=== PATIENT | male | born 1950 | race Caucasian/White ===

== ENCOUNTER 2018-11-19 10:17 | Inpatient (IN) ==
[2018-11-19] MEDS ORDERED: Isovue-370 500 ML INFUS..BTL IV ONE (10:44)
--- NOTE | 2018-11-19 11:20 | Emergency Department Note ---
Disposition Clinical Impression: Pancytopenia, Lower GI bleed, Pulmonary vascular congestion Pneumonia Qualifiers: Pneumonia type: due to unspecified organism Laterality: bilateral Lung location: unspecified part of lung Qualified Code(s): J18.9 - Pneumonia, unspecified organism Anemia Qualifiers: Anemia type: unspecified type Qualified Code(s): D64.9 - Anemia, unspecified Disposition: Admitted As Inpatient Condition: Serious General Adult HPI - General Chief complaint: ED Shortness of Breath/Dyspnea Stated complaint: JOSE E, Port coming out [place] Pt Time Seen by Provider: 11/19/18 10:27 Source: patient Limitations: no limitations - History of Present Illness Pain Scale: 6 - Related Data Home Medications Medication Instructions Recorded Confirmed Budesonide/Formoterol 160/4.5 1 puff IH BID 10/16/16 11/19/18 [Symbicort 160/4.5] Citalopram [CeleXA] 20 mg PO DAILY 10/16/16 10/27/18 Potassium Chloride [Klor-Con] 20 meq PO DAILY 10/16/16 10/27/18 Esomeprazole Magnesium [Nexium] 40 mg PO DAILY 01/31/17 11/19/18 Clopidogrel [Plavix] 75 mg PO DAILY 03/10/17 10/27/18 Nitroglycerin 0.4 mg SL AD PRN 12/29/17 10/27/18 Fluticasone/Salmeterol [Advair 1 each IH BID 03/09/18 10/27/18 500-50 Diskus] Oxycodone HCl/Acetaminophen 1 each PO Q6H PRN 07/28/18 11/19/18 [Percocet 10-325 mg Tablet] Aspirin [Lo-Dose Aspirin EC] 81 mg PO DAILY 11/19/18 11/19/18 Atorvastatin Calcium 80 mg PO BID 11/19/18 11/19/18 Previous Rx's Medication Instructions Recorded Lidocaine/Prilocaine [Emla] 1 appl TP DAILY #30 gm 08/28/18 Carvedilol 12.5 mg PO BID #60 tab 08/31/18 Allergies Allergy/AdvReac Type Severity Reaction Status Date / Time Iodinated Contrast- Oral and AdvReac Difficulty Verified 11/19/18 14:03 IV Dye Breathing [Iodinated Contrast Media - Oral and] lorazepam [From Ativan] AdvReac See Verified 11/19/18 14:03 Comments Past Medical History - Past Medical History Medical history: Reports: hypertension, other Surgical history: Reports: coronary bypass (CABG), other Psychiatric history: Reports: no psych history - Social History Smoking Status: Current every day smoker Smokeless Tobacco Status: No Alcohol use: Reports: none Drug use: Reports: none Physical Exam - General Limitations: no limitations General appearance: alert, in no apparent distress Course - Reevaluation(s) Reevaluation #1: Called the patient's room for respiratory distress. Patient tachypneic up playing and trouble breathing. Diaphoretic. Heart rate now 130s. ABG ordered. Chest x-ray ordered. Patient placed on BiPAP and is tolerating that well this time. Patient's type and screen was not drawn. We did order a unit of negative blood while waiting on the type and cross. I performed a rectal exam is Hemoccult positive. We will send to ICU. Time: 14:06 Vital Signs Temperature 98.3 F 11/19/18 10:20 Pulse Rate 117 11/19/18 10:20 Respiratory Rate 22 11/19/18 10:20 Blood Pressure 151/70 11/19/18 10:20 O2 Sat by Pulse Oximetry 100 11/19/18 10:20 Temperature 98.6 F 11/19/18 14:10 Pulse Rate 106 11/19/18 14:22 Respiratory Rate 18 11/19/18 14:22 Blood Pressure 161/85 11/19/18 14:22 O2 Sat by Pulse Oximetry 100 11/19/18 14:22 Oxygen Delivery Oxygen Delivery Bipap Medical Decision Making - Lab Data Result diagrams: 11/19/18 11:03 11/19/18 11:03 Lab Results 11/19/18 11/19/18 11/19/18 Range/Units 11:03 11:03 11:03 WBC 2.4 L (4.3-11.1) K/mcL RBC 1.51 L (4.19-5.50) M/mcL Hgb 5.8 L* (12.9-16.9) g/dL Hct 17.6 L (37.5-50.1) % MCV 116.6 H (83.0-100.0) fL MCH 38.4 H (28.0-33.3) pg MCHC 33.0 (31.6-35.5) g/dL RDW 19.5 H (11.5-14.5) % Plt Count 23 L* (140-400) K/mcL MPV TNP Seg Neutrophils % 84.0 % Lymphocytes % 14.0 % Monocytes % 2.0 % Neutrophils # 2.0 (1.6-8.9) K/mcL Lymphocytes # 0.3 L (0.6-4.6) K/mcL Monocytes # 0.1 (0.0-1.3) K/mcL Platelet Estimate Marked Decrease L (Normal) Polychromasia 1+ A (Not Present) Poikilocytosis 1+ A (Not Present) Anisocytosis 2+ A (Not Present) Microcytosis Present A (Not Present) Sodium 138 (136-145) mEq/L Potassium 4.0 (3.5-5.1) mEq/L Chloride 105 (98-107) mEq/L Carbon Dioxide 24 (23-29) mEq/L BUN 38 H (8-23) mg/dL Creatinine 1.72 H (0.70-1.30) mg/dL Est GFR ( Amer) 48 L (> 60) Est GFR (Non-Af Amer) 40 L (> 60) BUN/Creatinine Ratio 22 (6-26) Glucose 133 H (70-105) mg/dL Calculated Osmolality 297 (280-300) Lactic Acid 1.3 (0.5-2.2) mmol/L Calcium 8.2 L (8.6-10.3) mg/dL Total Bilirubin 0.4 (0.3-1.0) mg/dL AST 13 (13-39) Units/L ALT 9 (7-52) Units/L Alkaline Phosphatase 103 (34-104) Units/L Serum Total Protein 6.0 L (6.4-8.9) g/dL Albumin 2.6 L (3.5-5.7) g/dL Globulin 3.4 (2.4-3.5) g/dL Albumin/Globulin Ratio 0.8 L (1.1-2.2) Blood Type Antibody Screen Crossmatch 11/19/18 Range/Units 13:10 WBC (4.3-11.1) K/mcL RBC (4.19-5.50) M/mcL Hgb (12.9-16.9) g/dL Hct (37.5-50.1) % MCV (83.0-100.0) fL MCH (28.0-33.3) pg MCHC (31.6-35.5) g/dL RDW (11.5-14.5) % Plt Count (140-400) K/mcL MPV Seg Neutrophils % % Lymphocytes % % Monocytes % % Neutrophils # (1.6-8.9) K/mcL Lymphocytes # (0.6-4.6) K/mcL Monocytes # (0.0-1.3) K/mcL Platelet Estimate (Normal) Polychromasia (Not Present) Poikilocytosis (Not Present) Anisocytosis (Not Present) Microcytosis (Not Present) Sodium (136-145) mEq/L Potassium (3.5-5.1) mEq/L Chloride (98-107) mEq/L Carbon Dioxide (23-29) mEq/L BUN (8-23) mg/dL Creatinine (0.70-1.30) mg/dL Est GFR ( Amer) (> 60) Est GFR (Non-Af Amer) (> 60) BUN/Creatinine Ratio (6-26) Glucose (70-105) mg/dL Calculated Osmolality (280-300) Lactic Acid (0.5-2.2) mmol/L Calcium (8.6-10.3) mg/dL Total Bilirubin (0.3-1.0) mg/dL AST (13-39) Units/L ALT (7-52) Units/L Alkaline Phosphatase (34-104) Units/L Serum Total Protein (6.4-8.9) g/dL Albumin (3.5-5.7) g/dL Globulin (2.4-3.5) g/dL Albumin/Globulin Ratio (1.1-2.2) Blood Type B POSITIVE Antibody Screen NEGATIVE Crossmatch See Detail Critical Care Time Critical Care Time: Yes Total Critical Care Time: 40 Attestation: Critical care performed: Time is exclusive of separately billable procedures. Time includes: direct patient care, patient reassessment, coordination of patient care, interpretation of data (laboratory data, radiology data, and respiratory data), review of patient's medical records, medical consultation and documentation of patient car e. Procedures included in critical care time: Procedures excluded from critical care time: Attestation Statement - Attestation Attestation: For this encounter, I have reviewed the MEDIA PLANNER / BUYER or PA documentation, treatment plan, and medical decision making; and I have had face to face time with this patient. Patient to the ED with shortness of breath. Onset several days ago. States he was seen at [facility] and and upper respiratory infection. He states he is worse. He also states his port is coming out of the right side of his chest. Patient is currently undergoing treatment for bone cancer. On exam is awake and alert. Lung sounds diminished but clear. He can visualize pulse 70% of the s urface of the port protruding from the right side of his chest. No active bleeding. Plan. Imaging and PE workup. Patient to ICU. Tolerating BiPAP. Heart rate now 110. Blood transfusing. Ot evaluated by Dr Ortiz. Chest CT 11/19/18 11:13 IMPRESSION: Multifocal ground-glass and tree-in-bud nodules throughout both lungs, right greater than left suggesting an atypical pneumonia. Small to moderate right and small left layering pleural effusions. Mild centrilobular emphysema and chronic scarring and bronchiectasis in the lung bases. D/ / 11/19/2018 12:19:38 Sloan Painter MD / [facility] Interpreting Provider: Sloan Painter MD Pulmonary Perfusion Imaging 11/19/18 11:13 IMPRESSION: Low probability for pulmonary embolism. D/ / Kalpesh Franz MD / Kalpesh Franz MD Interpreting Provider: Kalpesh Franz MD Chest X-Ray 11/19/18 13:50 IMPRESSION: 1. Increasing bilateral interstitial lung infiltrates, likely related to a combination of pneumonia and pulmonary vascular congestion when reviewing the previous CT. 2. Bilateral pleural effusions, right side greater than left, unchanged. D/ / 11/19/2018 14:15:24 Noel Helm MD / [facility] Interpreting Provider: Noel Helm MD
[2018-11-19 11:21] LABS: Hematocrit 17.6 % (37.5-50.1); Mean Corpuscular Hemoglobin 38.4 pg (28.0-33.3); Mean Corpuscular Volume 116.6 fL (83.0-100.0); Monocytes # 0.1 K/mcL (0.0-1.3); Red Blood Count 1.51 M/mcL (4.19-5.50); Red Cell Distribution Width 19.5 % (11.5-14.5)
[2018-11-19 11:44] LABS: Albumin 2.6 g/dL (3.5-5.7); Albumin/Globulin Ratio 0.8 (1.1-2.2); Bilirubin,Total 0.4 mg/dL (0.3-1.0); Calcium 8.2 mg/dL (8.6-10.3); Globulin 3.4 g/dL (2.4-3.5)
[2018-11-19 11:48] LABS: Hemoglobin 5.8 g/dL (12.9-16.9); Platelet Count 23 K/mcL (140-400)
[2018-11-19] MEDS ORDERED: 0.9 % Sodium Chloride 500 ML IVC ONE (11:49)
[2018-11-19 11:50] LABS: Lymphocytes # 0.3 K/mcL (0.6-4.6)
[2018-11-19 11:51] LABS: Anisocytosis 2+ (Not Present); Platelet Estimate Marked Decrease (Normal); Polychromasia 1+ (Not Present)
[2018-11-19 11:52] LABS: Microcytosis Present (Not Present); Poikilocytosis 1+ (Not Present)
--- NOTE | 2018-11-19 12:55 | Emergency Department Note ---
Disposition Clinical Impression: Pancytopenia, Lower GI bleed, Pulmonary vascular congestion Pneumonia Qualifiers: Pneumonia type: due to unspecified organism Laterality: bilateral Lung location: unspecified part of lung Qualified Code(s): J18.9 - Pneumonia, unspecified organism Anemia Qualifiers: Anemia type: unspecified type Qualified Code(s): D64.9 - Anemia, unspecified Disposition: Admitted As Inpatient Condition: Serious General Adult HPI - General Chief complaint: ED Shortness of Breath/Dyspnea Stated complaint: JOSE E, Port coming out [place] Pt Time Seen by Provider: 11/19/18 10:27 Source: patient Limitations: no limitations Nursing Notes Reviewed: Yes Vital Signs Reviewed: Yes - History of Present Illness HPI Narrative: 68 year old male with bone cancer currently on Chemo therapy presents with shortness of breath and port access came out. Pt stated he always has shortness of breath. He coughed some blood out three times yesterday. No chills and fever. Pt noticed port access in right chest came out 4 days ago. Pt covered it with clean dressing. Pt follows up with Oncologist Dr. Eaton. His port was inserted by IR two months ago. Onset (ago): day(s) (4) Location: other (lungs) Pain Scale: 6 - Related Data Home Medications Medication Instructions Recorded Confirmed Budesonide/Formoterol 160/4.5 1 puff IH BID 10/16/16 11/19/18 [Symbicort 160/4.5] Potassium Chloride [Klor-Con] 20 meq PO DAILY 10/16/16 11/19/18 Esomeprazole Magnesium [Nexium] 40 mg PO DAILY 01/31/17 11/19/18 Clopidogrel [Plavix] 75 mg PO DAILY 03/10/17 11/19/18 Nitroglycerin 0.4 mg SL Q5M PRN 12/29/17 11/19/18 Oxycodone HCl/Acetaminophen 1 each PO Q6H PRN 07/28/18 11/19/18 [Percocet 10-325 mg Tablet] Amoxicillin 875 mg PO BID 11/19/18 11/19/18 Aspirin [Lo-Dose Aspirin EC] 81 mg PO DAILY 11/19/18 11/19/18 Atorvastatin Calcium 80 mg PO BID 11/19/18 11/19/18 Diclofenac Sodium 4 gm TP QID PRN 11/19/18 11/19/18 Hydromorphone (Pf) [Hydromorphone 9 mg IT AD 11/19/18 11/19/18 Intrathecal Pump] Ipratropium/Albuterol Sulfate 2 spray IH DAILY 11/19/18 11/19/18 [Combivent Respimat Inhal [place]] NALOXONE 4 MG Nasal [place] [Narcan] 1 spray NS AD 11/19/18 11/19/18 Previous Rx's Medication Instructions Recorded Lidocaine/Prilocaine [Emla] 1 appl TP DAILY #30 gm 08/28/18 Allergies Allergy/AdvReac Type Severity Reaction Status Date / Time Iodinated Contrast- Oral and AdvReac Difficulty Verified 11/19/18 14:03 IV Dye Breathing [Iodinated Contrast Media - Oral and] lorazepam [From Ativan] AdvReac See Verified 11/19/18 14:03 Comments Constitutional: Denies: fever, chills Eyes: Denies: eye pain ENT ED: Denies: ear pain Cardiovascular: Denies: chest pain Respiratory: Reports: cough, hemoptysis Gastrointestinal: Denies: abdominal pain Genitourinary: Denies: urgency Musculoskeletal: Denies: back pain Integumentary: Denies: rash Neurological: Denies: headache Psychiatric: Denies: anxiety Endocrine: Denies: fatigue Hematological/Lymphatic: Denies: easy bleeding Allergic/Immunologic: Denies: facial swelling Past Medical History - Past Medical History Medical history: Reports: hypertension, other Surgical history: Reports: coronary bypass (CABG), other Psychiatric history: Reports: no psych history - Social History Smoking Status: Current every day smoker Smokeless Tobacco Status: No Alcohol use: Reports: none Drug use: Reports: none Physical Exam - General Limitations: no limitations General appearance: alert, in no apparent distress - Head Head exam: atraumatic - Expanded Head Exam Head exam physicial: Present: laceration - ENT ENT exam: normal exam - Neck Neck exam: Present: normal inspection - Chest Chest inspection: Present: normal inspection - Respiratory Respiratory exam: Present: normal lung sounds bilaterally. Absent: respiratory distress, wheezes - Cardiovascular Cardiovascular exam: Present: tachycardia - Abdominal Exam Abdominal exam: Present: soft, Non-Tender - Extremities Exam Extremities exam: Present: normal inspection, full ROM. Absent: tenderness - Back Exam Back exam: Present: normal inspection, full ROM. Absent: tenderness - Neurological Exam Neurological exam: Present: alert, oriented X3 - Psychiatric Psychiatric exam: Present: normal affect - Skin Skin exam: Present: warm. Absent: intact (port access on right chest half way came out, surrounding skin mild erythema, no swelling, no tender) Course Vital Signs Temperature 98.3 F 11/19/18 10:20 Pulse Rate 117 11/19/18 10:20 Respiratory Rate 22 11/19/18 10:20 Blood Pressure 151/70 11/19/18 10:20 O2 Sat by Pulse Oximetry 100 11/19/18 10:20 Temperature 98.5 F 11/19/18 15:24 Pulse Rate 90 11/19/18 15:24 Respiratory Rate 22 11/19/18 15:24 Blood Pressure 169/94 11/19/18 15:24 O2 Sat by Pulse Oximetry 100 11/19/18 15:24 Oxygen Delivery Oxygen Delivery Bipap Medical Decision Making - MDM Narrative Medical decision making narrative: 68 year old male with history of bone cancer presents with shortness of breath, hemoptyic, and port access came out. physical exam: O2 sat 100 in room air, alert and oriented, bilateral lungs are clear, no breath distress, no wheezing, tachycardia with pulse 117, port access came out, surrounding skin mild erythema, no swelling, no tender to palpation. Labs: hemoglobin 5.8. Chest CT indicated bilateral atypical pneumonia, QV: low possibility of PE. Rectal exam positive [place] test. 2 unites blood ordered in ER. Spoke with Hospitalist, pt is accepted. 1:40 pm, nurses reported pt suddenly has altered mental status and worsening tachycardia with heart rate 130. Bi-pap applied, pt seems better. Alert and oriented. ICU doctor contacted. Dr. Landers saw the patient in ED. Pt will be accepted in ICU - Lab Data Lab results reviewed: Yes I reviewed the patient's lab results. Result diagrams: 11/19/18 11:03 11/19/18 11:03 Lab Results 11/19/18 11/19/18 11/19/18 Range/Units 11:03 11:03 11:03 WBC 2.4 L (4.3-11.1) K/mcL RBC 1.51 L (4.19-5.50) M/mcL Hgb 5.8 L* (12.9-16.9) g/dL Hct 17.6 L (37.5-50.1) % MCV 116.6 H (83.0-100.0) fL MCH 38.4 H (28.0-33.3) pg MCHC 33.0 (31.6-35.5) g/dL RDW 19.5 H (11.5-14.5) % Plt Count 23 L* (140-400) K/mcL MPV TNP Seg Neutrophils % 84.0 % Lymphocytes % 14.0 % Monocytes % 2.0 % Neutrophils # 2.0 (1.6-8.9) K/mcL Lymphocytes # 0.3 L (0.6-4.6) K/mcL Monocytes # 0.1 (0.0-1.3) K/mcL Platelet Estimate Marked Decrease L (Normal) Polychromasia 1+ A (Not Present) Poikilocytosis 1+ A (Not Present) Anisocytosis 2+ A (Not Present) Microcytosis Present A (Not Present) Sodium 138 (136-145) mEq/L Potassium 4.0 (3.5-5.1) mEq/L Chloride 105 (98-107) mEq/L Carbon Dioxide 24 (23-29) mEq/L BUN 38 H (8-23) mg/dL Creatinine 1.72 H (0.70-1.30) mg/dL Est GFR ( Amer) 48 L (> 60) Est GFR (Non-Af Amer) 40 L (> 60) BUN/Creatinine Ratio 22 (6-26) Glucose 133 H (70-105) mg/dL Calculated Osmolality 297 (280-300) Lactic Acid 1.3 (0.5-2.2) mmol/L Calcium 8.2 L (8.6-10.3) mg/dL Total Bilirubin 0.4 (0.3-1.0) mg/dL AST 13 (13-39) Units/L ALT 9 (7-52) Units/L Alkaline Phosphatase 103 (34-104) Units/L Serum Total Protein 6.0 L (6.4-8.9) g/dL Albumin 2.6 L (3.5-5.7) g/dL Globulin 3.4 (2.4-3.5) g/dL Albumin/Globulin Ratio 0.8 L (1.1-2.2) Blood Type Antibody Screen Crossmatch 11/19/18 Range/Units 13:10 WBC (4.3-11.1) K/mcL RBC (4.19-5.50) M/mcL Hgb (12.9-16.9) g/dL Hct (37.5-50.1) % MCV (83.0-100.0) fL MCH (28.0-33.3) pg MCHC (31.6-35.5) g/dL RDW (11.5-14.5) % Plt Count (140-400) K/mcL MPV Seg Neutrophils % % Lymphocytes % % Monocytes % % Neutrophils # (1.6-8.9) K/mcL Lymphocytes # (0.6-4.6) K/mcL Monocytes # (0.0-1.3) K/mcL Platelet Estimate (Normal) Polychromasia (Not Present) Poikilocytosis (Not Present) Anisocytosis (Not Present) Microcytosis (Not Present) Sodium (136-145) mEq/L Potassium (3.5-5.1) mEq/L Chloride (98-107) mEq/L Carbon Dioxide (23-29) mEq/L BUN (8-23) mg/dL Creatinine (0.70-1.30) mg/dL Est GFR ( Amer) (> 60) Est GFR (Non-Af Amer) (> 60) BUN/Creatinine Ratio (6-26) Glucose (70-105) mg/dL Calculated Osmolality (280-300) Lactic Acid (0.5-2.2) mmol/L Calcium (8.6-10.3) mg/dL Total Bilirubin (0.3-1.0) mg/dL AST (13-39) Units/L ALT (7-52) Units/L Alkaline Phosphatase (34-104) Units/L Serum Total Protein (6.4-8.9) g/dL Albumin (3.5-5.7) g/dL Globulin (2.4-3.5) g/dL Albumin/Globulin Ratio (1.1-2.2) Blood Type B POSITIVE Antibody Screen NEGATIVE Crossmatch See Detail - Radiology Data Radiology results reviewed: Yes I reviewed the patient's radiology results. FINDINGS: PERFUSION: There is heterogeneous distribution of radiotracer, diminished in the right lung compared to the left. The perfusion is overall improved compared to the ventilation. No unmatched segmental or subsegmental perfusion defects. VENTILATION: Heterogeneous distribution of radiotracer, similar distribution to the perfusion images. CHEST RADIOGRAPH: Scattered ground-glass opacities throughout the lungs, greater in the right lung. Small right pleural effusion. NM/NM pul vent and perfuse IMPRESSION: Low probability for pulmonary embolism. D/ / Kalpesh Franz MD / Kalpesh Franz MD Interpreting Provider: Kalpesh Franz MD ORY: ORDERING SYSTEM PROVIDED HISTORY: jose e/cancer Initial encounter. Acute difficulty in breathing, cough for 6 days. FINDINGS: Mediastinum: There is a right chest wall Port-A-Cath line with its tip in the SVC. There is a right chest wall Port-A-Cath line with its tip at the cavoatrial junction. Coronary artery calcifications and coronary arterial stents are noted. Evidence of prior CABG. There is inferior pericardial calcifications likely from prior surgery. There are stable borderline to mildly enlarged mediastinal lymph nodes noted. These are unchanged since 2016, and likely represent chronic reactive lymph nodes from prior CABG. For example, there is a 12 mm short axis AP window lymph node and a 12 mm short axis right paratracheal lymph node that are stable. There are also calcified mediastinal and right hilar granulomata noted. No definite evidence of pathologically enlarged lymph nodes. Thyroid is grossly unremarkable within the limits of CT. The central airways are clear. The esophagus is grossly unremarkable. Lungs/pleura: There is a small to moderate size layering right pleural effusion. There is a small left pleural effusion. There is mild centrilobular emphysema in the lungs. There is multifocal ground-glass and tree-in-bud nodules throughout the lungs predominantly in the right upper lobe, right middle lobe and right lower lobe but also to a lesser extent in the left upper and lower lobes suggesting an atypical pneumonia. There is mild bronchiectasis and scarring in the right middle lobe that is stable. No evidence of pneumothorax. Upper Abdomen: No evidence of focal adrenal nodule. Limited images of the upper abdomen demonstrate no acute abnormality. Soft Tissues/Bones: Age related degenerative changes of the visualized osseous structures without focal destructive lesion. Spinal stimulator leads are noted in the thoracic spine. CT/CT chest wo con IMPRESSION: Multifocal ground-glass and tree-in-bud nodules throughout both lungs, right greater than left suggesting an atypical pneumonia. Small to moderate right and small left layering pleural effusions. Mild centrilobular emphysema and chronic scarring and bronchiectasis in the lung bases. D/ / 11/19/2018 12:19:38 Sloan Painter MD / [facility] Interpreting Provider: Sloan Painter MD
[2018-11-19] MEDS ORDERED: Levofloxacin 750 MG/150 ML 750 MG/150 ML BAG IVPB ONE (13:13)
[2018-11-19] MEDS ORDERED: Piperacillin/Tazobactam 3.375 GM in 0.9 % Sodium Chloride Mini Bag 100 ML IVPB ONE (13:13)
[2018-11-19] MEDS ORDERED: Furosemide 40 MG/4 ML VIAL IVP ONE (13:51)
[2018-11-19] MEDS ORDERED: 0.9 % Sodium Chloride 500 ML ONE (14:01)
[2018-11-19 14:10] LABS: ABG Base Excess -7 mEq/L (-2 to 3); ABG HCO3 18 mEq/L (21-27); ABG Oxygen Saturation 97 % (95-98); ABG PCO2 33 mmHg (35-45); ABG PH 7.35 pH Units (7.32-7.45); ABG PO2 95 mmHg (85-104); ABG TCO2 19 mEq/L (20-26); Blood Gas PEEP 6 cm H2O; Blood Gas Pressure Support 12 cm H2O
--- NOTE | 2018-11-19 14:29 | Pulmonology History & Physical ---
Addendum entered and electronically signed by Jairo Lunsford DO 11/21/18 18:59: Addendum entered and electronically signed by Nelly Landers MD 11/20/18 19:12: - Attending Attestation After Careful chart review family telling the history it looks like patient is on Oxygen at home so the current presentation Acute Hypoxic respiratory failure. Original Note: <Jairo Lunsford - Last Filed: 11/19/18 21:25> Date of Encounter: 11/19/18 Time of Encounter: 14:29 Assessment and Plan (1) HAP (hospital-acquired pneumonia) Current visit: Yes Status: Acute Patient presented with shortness of breath, thrombocytopenia, and cough. CT chest revealed bilateral atypical pneumonia and small bilateral pleural effusions. ABG revealed normal pH, PCO2 33, PO2 95, and O2 sat 97. Patient was placed on BiPAP secondary to respiratory distress. V/Q scan was low probability for pulmonary embolism. Patient was started on empiric Vancomycin, Zosyn, and Levaquin. Urine Legionella and strep pneumo antigens pending MRSA nasal swab pending Respiratory infection panel pending De-escalate antibiotics based on clinical course. (2) Anemia Current visit: Yes Status: Acute Labs revealed pancytopenia, hemoglobin of 5.8, platelet count 23, patient was Hemoccult positive in the ED 2 units PRBCs were ordered. [address]. Patient is hemodynamically stable Continue PPI IV Hematology oncology consulted Qualifiers: Anemia type: unspecified type Qualified Code(s): D64.9 - Anemia, unspecified (3) MAEVE (acute kidney injury) Current visit: Yes Status: Acute Patient with history of lupus, membranous glomerulonephritis with nephrosis, Lasix use, and MICA inhibitor use Renal ultrasound ordered. Continue gentle hydration. Renally dose antibiotics Avoid nephrotoxins (4) MDS (myelodysplastic syndrome) Current visit: Yes Status: Chronic Patient with pancytopenia, hematology oncology consulted for further evaluation. Appreciate recommendations. (5) Port-A-Cath in place Current visit: Yes Status: Acute Patient with the right upper chest Port-A-Cath dehiscence Interventional radiology consulted for catheter removal and new catheter placement (6) Lupus Current visit: No Status: Chronic Patient follows with rheumatology as outpatient. Qualifiers: Systemic lupus erythematosus type: unspecified Systemic lupus erythematosus organ involvement: unspecified Qualified Code(s): M32.9 - Systemic lupus erythematosus, unspecified (7) Opiate dependence Current visit: Yes Status: Chronic Patient has hydromorphone intrathecal pump in place, outpatient management per pain management. Continue Home meds Qualifiers: Substance use status: uncomplicated Qualified Code(s): F11.20 - Opioid dependence, uncomplicated (8) HTN (hypertension) Current visit: Yes Status: Acute Hold home MICA inhibitor due to MAEVE Continue hydralazine IV to 6 hours as needed for SBP greater than 160 Qualifiers: Hypertension type: essential hypertension Qualified Code(s): I10 - Essential (primary) hypertension (9) CAD (coronary artery disease) Current visit: No Status: Chronic Continue home meds. Qualifiers: Coronary Disease-Associated Artery/Lesion type: unspecified vessel or lesion type [place] vs. transplanted heart: [place] heart Associated angina: without angina Qualified Code(s): I25.10 - Atherosclerotic heart disease of [place] coronary artery without angina pectoris (10) PAD (peripheral artery disease) Current visit: No Status: Chronic Continue home meds. (11) Seizures Current visit: No Status: Chronic Reported history of seizures. Continue monitoring. (12) Tobacco abuse Current visit: Yes Status: Chronic Tobacco cessation. (13) DVT prophylaxis Current visit: Yes Status: Acute SCDs. Avoid Heparin due to anemia and thrombocytopenia History of Present Illness Chief complaint: Short of breath HPI: Mr. Oreilly is a 68 year old male with a past medical history of myelodysplastic syndrome, Lupus, CAD, hypertension, intrathecal pain pump, seizure disorder, and tobacco dependence who presented complaining of shortness of breath and fatigue. Patient is currently undergoing treatment for "bone cancer". In the ED, CT chest revealed bilateral atypical pneumonia and small bilateral pleural effusions. ABG revealed normal pH, PCO2 33, PO2 95, and O2 sat 97. Patient was placed on BiPAP secondary to respiratory distress. Labs revealed pancytopenia, hemoglobin of 5.8, platelet count 23, and acute kidney injury. Patient was Hemoccult positive in the ED and 2 units PRBCs were ordered. His Port-A-Cath in his right chest is also starting to dehiscence out of his chest wall. V/Q scan was low probability for pulmonary embolism. Patient was moved to ICU for further management Past Med Surg Social Fam HX - Past Medical History Medical history: hypertension, other Additional medical history: Open heart, stents x 12 Psychiatric history: no psych history - Past Surgical History Surgical History: coronary bypass (CABG), other Additional surgical history: implanted port - Social History Smoking Status: Current every day smoker Smokeless Tobacco Status: No Alcohol use: none Drug use: none - Family History Mother Hx Family Endocrine Disorder: Yes (Diabetes) Father Living Status: Hx Family Cardiac Disorders: Yes (Hypertension) Hx Family Respiratory Disorders: Yes (Asthma) Brother Living Status: Cause of : Cancer Hx Family Cancer: Yes Medications and Allergies Budesonide/Formoterol 160/4.5 [Symbicort 160/4.5] 1 puff IH BID 10/16/16 [History] Potassium Chloride [Klor-Con] 20 meq PO DAILY 10/16/16 [History] Esomeprazole Magnesium [Nexium] 40 mg PO DAILY 01/31/17 [History] Clopidogrel [Plavix] 75 mg PO DAILY 03/10/17 [History] Nitroglycerin 0.4 mg SL Q5M PRN 12/29/17 [History] Oxycodone HCl/Acetaminophen [Percocet 10-325 mg Tablet] 1 each PO Q6H PRN 07/28/18 [History] Lidocaine/Prilocaine [[place]mla] 1 appl TP DAILY #30 gm 08/28/18 [Rx] Amoxicillin 875 mg PO BID 11/19/18 [History] Aspirin [Lo-Dose Aspirin EC] 81 mg PO DAILY 11/19/18 [History] Atorvastatin Calcium 80 mg PO BID 11/19/18 [History] Diclofenac Sodium 4 gm TP QID PRN 11/19/18 [History] Hydromorphone (Pf) [Hydromorphone Intrathecal Pump] 9 mg IT AD 11/19/18 [History] Ipratropium/Albuterol Sulfate [Combivent Respimat Inhal [place]] 2 spray IH DAILY 11/19/18 [History] NALOXONE 4 MG Nasal [place] [Narcan] 1 spray NS AD 11/19/18 [History] Allergy/AdvReac Type Severity Reaction Status Date / Time Iodinated Contrast- Oral and AdvReac Difficulty Verified 11/19/18 14:03 IV Dye Breathing [Iodinated Contrast Media - Oral and] lorazepam [From Ativan] AdvReac See Verified 11/19/18 14:03 Comments All Systems: The remainder of the systems were reviewed and are negative - Constitutional Constitutional: fatigue, weakness, no chills, no fever(s) - EENT Nose, mouth and throat: no epistaxis, no neck pain, no sore throat - Cardiovascular Cardiovascular: dyspnea, palpitations, no lightheadedness - Respiratory Respiratory: cough, dyspnea, hemoptysis, wheezing - Gastrointestinal Gastrointestinal: no abdominal pain, no nausea, no vomiting - Genitourinary Genitourinary: no dysuria, no urinary frequency, no urinary urgency - Musculoskeletal Musculoskeletal: no numbness, no tingling - Integumentary Integumentary: erythema, other (Port a Cath dehiscence), no rash - Neurological Neurological: weakness, no confusion, no dizziness, no headache(s), no numbness, no tingling - Psychiatric Psychiatric: no anxiety, no depression - Endocrine Endocrine: fatigue, no polydipsia, no polyphagia - Hematologic/Lymphatic Hematologic/Lymphatic: no easy bleeding, no easy bruising Physical Examination Vital Signs: Vital Signs, Last 4 Hours Temp Pulse Resp BP Pulse Ox 11/19/18 14:22 106 18 161/85 100 11/19/18 14:10 98.6 F 113 22 158/80 100 11/19/18 13:59 22 100 11/19/18 13:42 123 26 154/69 95 11/19/18 10:30 98.3 F 117 22 151/70 100 General appearance: no acute distress (Wearing BiPAP) Eyes: nonicteric ENT: oropharynx dry Neck: supple Effort: mildly labored (Wearing BiPAP) Inspection: normal Auscultation: bilateral: wheezes Percussion: bilateral: not dull Tactile fremitus: bilateral: normal Cardiovascular: regular rate and rhythm Gastrointestinal: normoactive bowel sounds, soft (Tachycardic), non-distended Integumentary: other (Port-A-Cath dehiscence right upper chest) Extremities: no cyanosis, no edema, no clubbing Musculoskeletal: no deformities, ROM normal normal mental status, non-focal exam mood appropriate, affect normal Results - Laboratory Findings CBC and BMP: 11/19/18 11:03 11/19/18 11:03 ABG ABG pH 7.35 pH Units (7.32-7.45) 11/19/18 14:06 ABG pCO2 33 mmHg (35-45) L 11/19/18 14:06 ABG pO2 95 mmHg (85-104) 11/19/18 14:06 ABG O2 Saturation 97 % (95-98) 11/19/18 14:06 Abnormal lab findings: Abnormal lab results WBC 2.4 K/mcL (4.3-11.1) L 11/19/18 11:03 RBC 1.51 M/mcL (4.19-5.50) L 11/19/18 11:03 Hgb 5.8 g/dL (12.9-16.9) L* 11/19/18 11:03 Hct 17.6 % (37.5-50.1) L 11/19/18 11:03 MCV 116.6 fL (83.0-100.0) H 11/19/18 11:03 MCH 38.4 pg (28.0-33.3) H 11/19/18 11:03 RDW 19.5 % (11.5-14.5) H 11/19/18 11:03 Plt Count 23 K/mcL (140-400) L* 11/19/18 11:03 Lymphocytes # 0.3 K/mcL (0.6-4.6) L 11/19/18 11:03 Platelet Estimate Marked Decrease (Normal) L 11/19/18 11:03 Polychromasia 1+ (Not Present) A 11/19/18 11:03 Poikilocytosis 1+ (Not Present) A 11/19/18 11:03 Anisocytosis 2+ (Not Present) A 11/19/18 11:03 Microcytosis Present (Not Present) A 11/19/18 11:03 ABG pCO2 33 mmHg (35-45) L 11/19/18 14:06 ABG HCO3 18 mEq/L (21-27) L 11/19/18 14:06 ABG Total CO2 19 mEq/L (20-26) L 11/19/18 14:06 ABG Base Excess -7 mEq/L (-2 to 3) L 11/19/18 14:06 BUN 38 mg/dL (8-23) H 11/19/18 11:03 Creatinine 1.72 mg/dL (0.70-1.30) H 11/19/18 11:03 Est GFR ( Amer) 48 (> 60) L 11/19/18 11:03 Est GFR (Non-Af Amer) 40 (> 60) L 11/19/18 11:03 Glucose 133 mg/dL (70-105) H 11/19/18 11:03 Calcium 8.2 mg/dL (8.6-10.3) L 11/19/18 11:03 Serum Total Protein 6.0 g/dL (6.4-8.9) L 11/19/18 11:03 Albumin 2.6 g/dL (3.5-5.7) L 11/19/18 11:03 Albumin/Globulin Ratio 0.8 (1.1-2.2) L 11/19/18 11:03 - Diagnostic Findings Chest x-ray: report reviewed, image reviewed Additional studies: ITS Impressions Chest CT 11/19/18 11:13 IMPRESSION: Multifocal ground-glass and tree-in-bud nodules throughout both lungs, right greater than left suggesting an atypical pneumonia. Small to moderate right and small left layering pleural effusions. Mild centrilobular emphysema and chronic scarring and bronchiectasis in the lung bases. D/ / 11/19/2018 12:19:38 Sloan Painter MD / bcaer Interpreting Provider: Sloan Painter MD Pulmonary Perfusion Imaging 11/19/18 11:13 IMPRESSION: Low probability for pulmonary embolism. D/ / Kalpesh Franz MD / Kalpesh Franz MD Interpreting Provider: Kalpesh Franz MD Chest X-Ray 11/19/18 13:50 IMPRESSION: 1. Increasing bilateral interstitial lung infiltrates, likely related to a combination of pneumonia and pulmonary vascular congestion when reviewing the previous CT. 2. Bilateral pleural effusions, right side greater than left, unchanged. D/ / 11/19/2018 14:15:24 Noel Helm MD / anahi Interpreting Provider: Noel Helm MD Retroperitoneum Ultrasound 11/19/18 15:26 IMPRESSION: 1. No evidence of hydronephrosis. 2. Echogenic renal cortex may represent medical renal disease. D/ / Alejandro Jones MD / Alejandro Jones MD Interpreting Provider: Alejandro Jones MD <Nelly Landers S - Last Filed: 11/20/18 00:05> Date of Encounter: 11/20/18 History of Present Illness HPI: Mr. Oreilly is a 68 year old male All Systems: The remainder of the systems were reviewed and are negative Physical Examination Vital Signs: Vital Signs, Last 4 Hours Temp Pulse Resp BP Pulse Ox 11/19/18 23:00 97.6 F 97 22 165/95 95 11/19/18 22:00 102 22 166/82 94 11/19/18 21:48 20 167/94 96 11/19/18 21:00 107 22 171/122 96 11/19/18 20:46 26 170/89 95 11/19/18 20:13 98.4 F 11/19/18 20:00 106 20 170/89 96 Results - Laboratory Findings CBC and BMP: 11/19/18 19:39 11/19/18 11:03 ABG ABG pH 7.35 pH Units (7.32-7.45) 11/19/18 14:06 ABG pCO2 33 mmHg (35-45) L 11/19/18 14:06 ABG pO2 95 mmHg (85-104) 11/19/18 14:06 ABG O2 Saturation 97 % (95-98) 11/19/18 14:06 PT/INR, D-dimer PT 13.4 Seconds (9.4-12.1) H 11/19/18 11:00 Abnormal lab findings: Abnormal lab results WBC 3.0 K/mcL (4.3-11.1) L 11/19/18 19:39 RBC 2.06 M/mcL (4.19-5.50) L 11/19/18 19:39 Hgb 7.2 g/dL (12.9-16.9) L 11/19/18 19:39 Hct 21.3 % (37.5-50.1) L 11/19/18 19:39 MCV 103.4 fL (83.0-100.0) H D 11/19/18 19:39 MCH 35.0 pg (28.0-33.3) H 11/19/18 19:39 Plt Count 20 K/mcL (140-400) L* 11/19/18 19:39 Lymphocytes # 0.3 K/mcL (0.6-4.6) L 11/19/18 19:39 Platelet Estimate Marked Decrease (Normal) L 11/19/18 19:39 Immature Plt Fraction 15.5 % (1.1-6.1) H 11/19/18 19:39 Polychromasia 1+ (Not Present) A 11/19/18 11:03 Poikilocytosis 1+ (Not Present) A 11/19/18 11:03 Anisocytosis 2+ (Not Present) A 11/19/18 19:39 Microcytosis Present (Not Present) A 11/19/18 11:03 PT 13.4 Seconds (9.4-12.1) H 11/19/18 11:00 ABG pCO2 33 mmHg (35-45) L 11/19/18 14:06 ABG HCO3 18 mEq/L (21-27) L 11/19/18 14:06 ABG Total CO2 19 mEq/L (20-26) L 11/19/18 14:06 ABG Base Excess -7 mEq/L (-2 to 3) L 11/19/18 14:06 BUN 38 mg/dL (8-23) H 11/19/18 11:03 Creatinine 1.72 mg/dL (0.70-1.30) H 11/19/18 11:03 Est GFR ( Amer) 48 (> 60) L 11/19/18 11:03 Est GFR (Non-Af Amer) 40 (> 60) L 11/19/18 11:03 Glucose 133 mg/dL (70-105) H 11/19/18 11:03 Calcium 8.2 mg/dL (8.6-10.3) L 11/19/18 11:03 Serum Total Protein 6.0 g/dL (6.4-8.9) L 11/19/18 11:03 Albumin 2.6 g/dL (3.5-5.7) L 11/19/18 11:03 Albumin/Globulin Ratio 0.8 (1.1-2.2) L 11/19/18 11:03 Urine Protein >=300 mg/dL (Neg-Trace) H 11/19/18 16:44 Urine Glucose (UA) 100 mg/dL (Normal) H 11/19/18 16:44 Urine Blood Small (Negative) H 11/19/18 16:44 Urine Microscopic RBC 5-15 per hpf (0-3) H 11/19/18 16:44 Urine Microscopic WBC 3-5 per hpf (0-3) H 11/19/18 16:44 Ur Squamous Epith Cells Many per lpf (None-Few) H 11/19/18 16:44 - Attending Attestation I saw and evaluated this patient and my medical decision-making was reviewed with the Resident Physician. I agree with the documented findings, disposition and treatment plan as described except to the extent set forth below. We independently had [id number] contact with the patient I spent 40 minutes of Critical Care time with this patient. It involved decision making of high complexity to assess, manipulate, and support vital organ system failure and/or to prevent further life threatening deterioration of the patient's condition. The time involved in the performance of separately repo rtable procedures was not counted toward critical care time. Patient seen and examined at bedside Labs, radiology, chart personally reviewed. Management was reviewed during multidisciplinary critical care rounds. RESEARCH RECRUITER: Patient is little bit somnolent following commands Pulm: Patient has acceptable oxygenation and ventilation, acute on chronic Hypoxic respiratory failure due to atypical pneumonia complicated by hydrostatic pulmonary edema will need bronchoscopy with BAL we will attempt tomorrow since patient is immunosuppressed. Cards: Patient Is hemodynamically stable to control blood pressure FEN-GI: Nothing by mouth for now. Renal: Acute on chronic kidney injury will do renal ultrasound monitoring serum creatinine and urine output. ID: With broad-spectrum antibiotics for atypical coverage we will attempt a bronchoscopy with BAL. Heme/Onc: Has myelodysplastic syndrome on chemotherapy now with pancytopenia. Patient chronic anemia is due to myelodysplastic syndrome and suspect any s ignificant GI bleed. Endo: Glucose Monitored Integ/MSK: Skin Care per routine ICU Nursing Protocol to prevent ulcers. Lines: All lines examined without evidence of infection : Dispo: Critically ill CODE:Full Code
[2018-11-19] MEDS ORDERED: Pantoprazole 40 MG in 0.9 % Sodium Chloride 50 ML IVPB ONE (14:44)
[2018-11-19] MEDS ORDERED: Acetaminophen 325 MG TABLET PO PRN (14:44)
[2018-11-19] MEDS ORDERED: Naloxone 0.4 MG/ML INJ IVP PRN (14:44)
[2018-11-19] MEDS ORDERED: Sennosides 8.6 MG TABLET PO PRN (14:44)
[2018-11-19] MEDS ORDERED: Ondansetron 4 MG/2 ML VIAL IVP PRN (14:44)
[2018-11-19] MEDS ORDERED: Vancomycin (wt based) 1,000 MG VIAL IVPB SCH (15:00)
[2018-11-19] MEDS: Ipratropium/Albuterol Neb 3 ML IH SCH ×2 (15:44→21:48)
[2018-11-19 16:21] LABS: Phosphorous 4.1 mg/dL (2.7-4.5)
[2018-11-19 16:25] LABS: INR 1.2; Prothrombin Time 13.4 Seconds (9.4-12.1)
[2018-11-19] MEDS: Piperacillin/Tazobactam 3.375 GM in 0.9 % Sodium Chloride Mini Bag 100 ML IVPB SCH ×2 (16:32→23:35)
[2018-11-19 17:16] LABS: Bilirubin,Urine Negative (Negative); Blood,Urine Small (Negative); Clarity,Urine Clear (Clear); Color,Urine Yellow (Yellow); Glucose,Urine (UA) 100 mg/dL (Normal); Ketones,Urine Negative (Negative); Leukocyte Esterase,Urine Negative (Negative); Nitrite,Urine Negative (Negative); Protein,Urine >=300 mg/dL (Neg-Trace); Urobilinogen,Urine Normal (Normal)
[2018-11-19 17:20] LABS: Bacteria,Urine None Seen per hpf (None-Few); Hyaline Casts,Urine None Seen per lpf (None-Few); Squamous Epithelial Cell,Urine Many per lpf (None-Few)
--- NOTE | 2018-11-19 17:32 | Oncology Inp Consult Note ---
<Darío Velázquez S - Last Filed: 11/20/18 08:59> Date of Encounter: 11/19/18 - Data of Consult Requesting Physician: Sid Tolentino Primary Care Provider: Sarah Charles CNP Medications and Allergies Budesonide/Formoterol 160/4.5 [Symbicort 160/4.5] 1 puff IH BID 10/16/16 [History] Potassium Chloride [Klor-Con] 20 meq PO DAILY 10/16/16 [History] Esomeprazole Magnesium [Nexium] 40 mg PO DAILY 01/31/17 [History] Clopidogrel [Plavix] 75 mg PO DAILY 03/10/17 [History] Nitroglycerin 0.4 mg SL Q5M PRN 12/29/17 [History] Oxycodone HCl/Acetaminophen [Percocet 10-325 mg Tablet] 1 each PO Q6H PRN 07/28/18 [History] Lidocaine/Prilocaine [Emla] 1 appl TP DAILY #30 gm 08/28/18 [Rx] Amoxicillin 875 mg PO BID 11/19/18 [History] Aspirin [Lo-Dose Aspirin EC] 81 mg PO DAILY 11/19/18 [History] Atorvastatin Calcium 80 mg PO BID 11/19/18 [History] Diclofenac Sodium 4 gm TP QID PRN 11/19/18 [History] Hydromorphone (Pf) [Hydromorphone Intrathecal Pump] 9 mg IT AD 11/19/18 [History] Ipratropium/Albuterol Sulfate [Combivent Respimat Inhal [place]] 2 spray IH DAILY 11/19/18 [History] NALOXONE 4 MG Nasal [place] [Narcan] 1 spray NS AD 11/19/18 [History] Allergy/AdvReac Type Severity Reaction Status Date / Time Iodinated Contrast- Oral and AdvReac Difficulty Verified 11/19/18 14:03 IV Dye Breathing [Iodinated Contrast Media - Oral and] lorazepam [From Ativan] AdvReac See Verified 11/19/18 14:03 Comments Consult Discharge Plan - Plan Referrals: Sarah Charles CNP [Primary Care Provider] - Inpatient Charges Provider: Dr. Nando Velázquez Consult - Inpatient: [id number] - Attending Attestation I examined this patient and my medical decision-making was reviewed with the Advanced Practice Nurse. I agree with the documented findings, disposition and treatment plan as described except to the extent set forth below. 1. Pancytopenia in the setting of MDS. He follows up with Dr. Eaton as an outpatient. On Aranesp 500 g subcutaneous every 3 weeks since 04/27/2018 Also on decitabine 20 mg IV day 1 through 5 every 4 weeks since 04/14/2018 later changed to 4 days every 4 weeks. Last dose 10/30/2018 2. The reason for admission is pneumonia. CT chest 11/19/2018 showed tree in bud appearance right worse than left - possible pneumonia. Blood cultures are pending. He is been treated with Levaquin, Zosyn and vancomycin. Antibiotics may make his thrombocytopenia worse. He is admitted to ICU. But he does not require intubation. He is able to carry on a meaningful conversation. He has some pain in the left upper chest wall V/Q scan low probability for PE 3. Hemoglobin 5.8 which is a drop from his baseline of 7.5. He has significant macrocytosis MCV 116. His B12 was low at 218 on 12/29/2017. Improved to 305 on 03/11/2018. We will do further anemia workup including iron levels serum protein electrophoresis and light chain. These were normal in the past. Has packed RBCs ordered for is not. Hemoccult stool was positive. 4. Also history of lupus with posteriorly CHEPE. 5. Thrombocytopenia platelet count 22,000. Its a drop from his baseline around 50,000. Some of this could be secondary to sepsis. Platelet transfusion if platelet count drops below 10,000 or at 20,000 if he has clinical evidence of bleeding 6. Acute kidney injury. Creatinine 1.7 on admission. 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 R-IPSS score 5.5, Iron deficiency by BM biopsy 01/08/2018 and B12 deficiency Current treatment includes Decitabine initiated 04/14/18 which was decreased to 4 days out of 5 cycle #7 and Aranesp 500 mcg q 3 week initiated 04/27/18. He is s/p cycle #8 Decitabine on 10/27/2018. He has evidence of cytopenias below baseline on admission, may be secondary to sepsis/infectious process/MAEVE in presence of sepsis Chest CT indicated bilateral atypical pneumonia and small bilateral pleural effusions Blood cultures pending WBC count and ANC normal Plan: Anemia workup including B12, folate, Iron, Ferritin, SPEP, SFLC, Eugenia, LDH Platelet transfusion for plt count <10 or if s/s bleeding present and plt <50 He denies any s/s bleeding in stool, he did have a rectal exam in ER with + Guaic, this could be secondary to his thrombocytopenia, he is w/o active s/s bleeding, hold off on GI consultation at this time Continue supportive management from oncology standpoint, will follow up on labs (2) Port-A-Cath in place Status: Acute Assessment and plan: Per patient and ER note, patient noticed A-port eroding through skin a couple of days prior to presentation. Not observed due to sterile dressing in place Patient has consult to IR for port removal tomorrow - Data of Consult Patient: known to practice within the last 3 years Consult date: 11/19/18 Requesting Physician: Sid Tolentino Primary Care Provider: Sarah Charles CNP - Consult Narrative Reason for consult: MDS History of present illness: Mr. Oreilly is a 68 year old male with past medical history significant for probable SLE, has elevated CHEPE/AntiRo Ab previously under the care of Dr. 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 R-IPSS score 5.5, Iron deficiency by BM biopsy 01/08/2018 and B12 deficiency. Current treatment includes Decitabine initiated 04/14/18 which was decreased to 4 days out of 5 cycle #7 and Aranesp 500 mcg q 3 week initiated 04/27/18. He is s/p cycle #8 Decitabine on 10/27/2018. Mr. Oreilly presented to [facility] ER on 11/19/2017 with report of increased SOB. Patient also noticed his port started to erode through his skin about 4 days prior to his presentation. He had a mediport recently placed on 08/28/18 in IR. He as noted to be anemic with hemoglobin 5.8, plt count 23, WBC 2.4, ANC normal at 2.0, MAEVE with creatinine 1.72. Chest CT indicated bilateral atypical pneumonia and small bilateral pleural effusions, VQ: low possibility of PE. Rectal exam in ER positive Guaic test. He was planned to be transferred to floor however developed altered mental status with worsening tachycardia heart rate of 1:30 in the ER. BiPAP was applied patient was transferred to ICU. Past Med Surg Social Fam HX - Past Medical History Medical history: hypertension, other Additional medical history: Open heart, stents x 12 Psychiatric history: no psych history - Past Surgical History Surgical History: coronary bypass (CABG), other Additional surgical history: implanted port - Social History Smoking Status: Current every day smoker Smokeless Tobacco Status: No Alcohol use: none Drug use: none - Family History Mother Hx Family Endocrine Disorder: Yes (Diabetes) Father Living Status: Hx Family Cardiac Disorders: Yes (Hypertension) Hx Family Respiratory Disorders: Yes (Asthma) Brother Living Status: Cause of : Cancer Hx Family Cancer: Yes Constitutional: Present: anorexia, chills, fatigue, weakness, weight loss. Absent: fever(s) Eyes: Absent: change in vision Nose, mouth and throat: Absent: dysphagia, odynophagia Cardiovascular: Absent: chest pain, palpitations Respiratory: Present: cough, dyspnea, hemoptysis Gastrointestinal: Absent: diarrhea, hematemesis, hematochezia, melena, nausea, vomiting Genitourinary: Absent: dysuria, hematuria Musculoskeletal: Present: muscle weakness Integumentary: Absent: rash, wounds Neurological: Absent: focal weakness, frequent falls Hematologic/Lymphatic: Absent: lymphadenopathy Oncology - Exam - Constitutional General appearance: cooperative, no acute distress, no febrile Exam: successfully weaned off bipap, on room air - Head Head exam: Present: atraumatic - ENT ENT exam: Present: mucous membranes moist, normal oropharynx - Respiratory Respiratory exam: Present: decreased breath sounds, wheezes. Absent: respiratory distress - Cardiovascular Cardiovascular exam: Present: RRR, tachycardia - GI/Abdominal GI/Abdominal exam: Present: normal bowel sounds, soft. Absent: rebound, tenderness - Extremities Exam Extremities exam: Present: pedal edema. Absent: calf tenderness - Neurological Exam Neurological exam: Present: alert, oriented X3, no focal deficits, strengths equal and symetr throughout - Psychiatric Psychiatric exam: Present: normal affect, normal mood - Skin Skin exam: Present: dry, intact, normal color, warm
[2018-11-19 17:40] LABS: Adenovirus Not Detected (Not Detect); Bordetella Pertussis Not Detected (Not Detect); Chlamydophila pneumoniae Not Detected (Not Detect); Coronavirus 229E Not Detected (Not Detect); Coronavirus HKU1 Not Detected (Not Detect); Coronavirus NL63 Not Detected (Not Detect); Coronavirus OC43 Not Detected (Not Detect); Human Metapneumovirus Not Detected (Not Detect); Human Rhinovirus/Enterovirus Not Detected (Not Detect); Influenza A Subtype 2009 H1 Not Detected (Not Detect); Influenza A Untypeable Not Detected (Not Detect); Influenza B Not Detected (Not Detect); Mycoplasma pneumoniae Not Detected (Not Detect); Parainfluenza Virus 1 Not Detected (Not Detect); Parainfluenza Virus 2 Not Detected (Not Detect); Parainfluenza Virus 3 Not Detected (Not Detect); Parainfluenza Virus 4 Not Detected (Not Detect); Respiratory Syncytial Virus Not Detected (Not Detect)
[2018-11-19] MEDS ORDERED: Levofloxacin 750 MG/150 ML 750 MG/150 ML BAG IVPB SCH (18:00)
[2018-11-19] MEDS: Pantoprazole 40 MG VIAL IVP SCH (19:30)
[2018-11-19 21:43] LABS: Basophils % 0.7 %
[2018-11-19 21:45] LABS: Hematocrit 21.3 % (37.5-50.1); Hemoglobin 7.2 g/dL (12.9-16.9); Immature Platelets 15.5 % (1.1-6.1); Lymphocytes # 0.3 K/mcL (0.6-4.6); Lymphocytes % 9.2 %; Mean Corpuscular HGB Conc 33.8 g/dL (31.6-35.5); Mean Corpuscular Volume 103.4 fL (83.0-100.0); Monocytes # 0.1 K/mcL (0.0-1.3); Monocytes % 2.6 %; Neutrophils # 2.6 K/mcL (1.6-8.9); Red Blood Count 2.06 M/mcL (4.19-5.50); Segmented Neutrophils % 86.5 %
[2018-11-19 21:53] LABS: Platelet Count 20 K/mcL (140-400)
[2018-11-19] MEDS ORDERED: Furosemide 20 MG/2 ML VIAL IVP ONE (22:06)
[2018-11-19 23:00] LABS: Anisocytosis 2+ (Not Present); Platelet Estimate Marked Decrease (Normal)
[2018-11-20] MEDS: Ipratropium/Albuterol Neb 3 ML IH SCH ×4 (03:48→21:28)
[2018-11-20] MEDS ORDERED: 0.9 % Sodium Chloride 250 ML ONE (04:31)
[2018-11-20] MEDS: Pantoprazole 40 MG VIAL IVP SCH ×2 (05:25→16:57)
[2018-11-20 06:47] LABS: Basophils % 0.6 %; Hematocrit 20.7 % (37.5-50.1); Immature Granulocytes % 0.9 % (0-4); Lymphocytes # 0.2 K/mcL (0.6-4.6); Lymphocytes % 5.5 %; Mean Corpuscular HGB Conc 33.8 g/dL (31.6-35.5); Mean Corpuscular Volume 103.5 fL (83.0-100.0); Monocytes # 0.1 K/mcL (0.0-1.3); Monocytes % 2.1 %; Segmented Neutrophils % 90.9 %
[2018-11-20 06:50] LABS: Platelet Count 27 K/mcL (140-400)
[2018-11-20 06:55] LABS: INR 1.3; Prothrombin Time 14.6 Seconds (9.4-12.1)
[2018-11-20 07:11] LABS: Calcium 8.2 mg/dL (8.6-10.3); Potassium 3.9 mEq/L (3.5-5.1)
[2018-11-20 07:12] LABS: % Iron Saturation 18 % (20-55); Iron 38 mcg/dL (65-175); Lactate Dehydrogenase 177 Units/L (140-271); Transferrin 149 mg/dL (203-362)
[2018-11-20 07:26] LABS: Ferritin 1132 ng/mL (20-250)
[2018-11-20] MEDS ORDERED: Furosemide 20 MG/2 ML VIAL IVP ONE (07:28)
[2018-11-20 07:31] LABS: Folate 7.7 ng/mL (3.0-16.0)
[2018-11-20 07:58] LABS: Anisocytosis 1+ (Not Present)
[2018-11-20 07:59] LABS: Platelet Estimate Marked Decrease (Normal)
[2018-11-20] MEDS: Piperacillin/Tazobactam 3.375 GM in 0.9 % Sodium Chloride Mini Bag 100 ML IVPB SCH ×3 (08:56→23:27)
--- NOTE | 2018-11-20 09:33 | Electrocardiograph Report ---
[address] [place] [address] Test Date: 2018-11-19 Pat Name: Loco Oreilly Department: EXAMC3 Room: [facility] Gender: M Milk Processing Worker: : 1950 Requested By: Leta See Order Number: [id number] Reading MD: Rui Camacho Measurements Intervals [place] Rate: 75 P: -67 MA: 132 QRS: -13 QRSD: 140 T: -22 QT: 363 QTc: 406 Interpretive Statements Ectopic atrial rhythm Atrial premature complex Right bundle branch block Possible inferior infarct, age indeterminate Electronically Signed On 11-20-2018 9:32:12 EST by Rui Camacho
[2018-11-20 10:31] LABS: Hematocrit 21.6 % (37.5-50.1); Hemoglobin 7.4 g/dL (12.9-16.9); Immature Platelets 14.3 % (1.1-6.1); Mean Corpuscular HGB Conc 34.3 g/dL (31.6-35.5); Mean Corpuscular Hemoglobin 35.4 pg (28.0-33.3); Mean Corpuscular Volume 103.3 fL (83.0-100.0); Red Blood Count 2.09 M/mcL (4.19-5.50)
[2018-11-20 10:42] LABS: Platelet Count 21 K/mcL (140-400)
--- NOTE | 2018-11-20 11:18 | Pulmonology Progress Note ---
Date of Encounter: 11/20/18 Time of Encounter: 09:00 Assessment and Plan (1) Acute respiratory failure with hypoxia Current Visit: Yes Status: Acute Multifactorial due to pneumonia and hydrostatic pulmonary edema.To use BIPAP at night . To Keep saturation above 92% (2) HAP (hospital-acquired pneumonia) Current Visit: Yes Status: Acute Patient has right middle and lower pneumonia did bronchoscopy with BAL showed a lot of secretions in the right middle lobe and the right lower lobe and the mattress because on the right side very minimal left side is seen to be normal BAL was sent for cultures Silver stain for PJP . Did want to start emprically on Bactrim since already has bone marrow depression and Bactrim side effect will be bone marrow depression. Continue broad-spectrum antibiotics. (3) Acute kidney injury Current Visit: Yes Status: Acute Labs and output reviewed. serum Creatinine is trending down. (4) MDS (myelodysplastic syndrome) Current Visit: Yes Status: Chronic Patient has pancytopenia with hemoglobin is stable for now. Platelets are stable no evidence of active bleeding. (5) DVT prophylaxis Current Visit: Yes Status: Acute EPCD Subjective Principal diagnosis: pneumonia Interval history: Patient is doing lot better today he is off BIPAP on Nasal cannula denies any chest pain or tightness patient has cough but could not bring out the sputum. denies any fever or chills denies any headaches denies any nausea vomiting denies any other constitutional symptoms. Patient is kept nothing by mouth for bronchoscopy and port removal. Objective PUL Vital signs: Last Vital Signs Temp 98.1 F 11/20/18 07:25 Pulse 100 11/20/18 11:00 Resp 19 11/20/18 11:00 BP 130/69 11/20/18 11:00 Pulse Ox 93 11/20/18 11:00 Effort: mildly labored Auscultation: bilateral: diminished breath sounds (basilar diminshed breadth sounds ), rales (bilateral scattered rales ) Gait: other (not able to assess ) other (unable to assess) Results - Laboratory Findings CBC and BMP: 11/20/18 10:00 11/20/18 05:46 ABG ABG pH 7.35 pH Units (7.32-7.45) 11/19/18 14:06 ABG pCO2 33 mmHg (35-45) L 11/19/18 14:06 ABG pO2 95 mmHg (85-104) 11/19/18 14:06 ABG O2 Saturation 97 % (95-98) 11/19/18 14:06 PT/INR, D-dimer PT 14.6 Seconds (9.4-12.1) H 11/20/18 05:46 Abnormal lab findings: Abnormal lab results RBC 2.09 M/mcL (4.19-5.50) L 11/20/18 10:00 Hgb 7.4 g/dL (12.9-16.9) L 11/20/18 10:00 Hct 21.6 % (37.5-50.1) L 11/20/18 10:00 MCV 103.3 fL (83.0-100.0) H 11/20/18 10:00 MCH 35.4 pg (28.0-33.3) H 11/20/18 10:00 Plt Count 21 K/mcL (140-400) L* 11/20/18 10:00 Lymphocytes # 0.2 K/mcL (0.6-4.6) L 11/20/18 05:46 Platelet Estimate Marked Decrease (Normal) L 11/20/18 05:46 Immature Plt Fraction 14.3 % (1.1-6.1) H 11/20/18 10:00 Polychromasia 1+ (Not Present) A 11/19/18 11:03 Poikilocytosis 1+ (Not Present) A 11/19/18 11:03 Anisocytosis 1+ (Not Present) A 11/20/18 05:46 Microcytosis Present (Not Present) A 11/19/18 11:03 PT 14.6 Seconds (9.4-12.1) H 11/20/18 05:46 ABG pCO2 33 mmHg (35-45) L 11/19/18 14:06 ABG HCO3 18 mEq/L (21-27) L 11/19/18 14:06 ABG Total CO2 19 mEq/L (20-26) L 11/19/18 14:06 ABG Base Excess -7 mEq/L (-2 to 3) L 11/19/18 14:06 Carbon Dioxide 21 mEq/L (23-29) L 11/20/18 05:46 BUN 42 mg/dL (8-23) H 11/20/18 05:46 Creatinine 1.64 mg/dL (0.70-1.30) H 11/20/18 05:46 Est GFR ( Amer) 51 (> 60) L 11/20/18 05:46 Est GFR (Non-Af Amer) 42 (> 60) L 11/20/18 05:46 Glucose 128 mg/dL (70-105) H 11/20/18 05:46 POC Glucose 148 mg/dL (70-99) H 11/19/18 13:43 Calcium 8.2 mg/dL (8.6-10.3) L 11/20/18 05:46 Iron 38 mcg/dL (65-175) L 11/20/18 05:46 % Saturation 18 % (20-55) L 11/20/18 05:46 Transferrin 149 mg/dL (203-362) L 11/20/18 05:46 Ferritin 1132 ng/mL (20-250) H 11/20/18 05:46 Serum Total Protein 6.0 g/dL (6.4-8.9) L 11/19/18 11:03 Albumin 2.6 g/dL (3.5-5.7) L 11/19/18 11:03 Albumin/Globulin Ratio 0.8 (1.1-2.2) L 11/19/18 11:03 Urine Protein >=300 mg/dL (Neg-Trace) H 11/19/18 16:44 Urine Glucose (UA) 100 mg/dL (Normal) H 11/19/18 16:44 Urine Blood Small (Negative) H 11/19/18 16:44 Urine Microscopic RBC 5-15 per hpf (0-3) H 11/19/18 16:44 Urine Microscopic WBC 3-5 per hpf (0-3) H 11/19/18 16:44 Ur Squamous Epith Cells Many per lpf (None-Few) H 11/19/18 16:44 - Microbiology Findings Microbiology Findings: Microbiology, Last 48 Hours 11/19/18 16:40 Legionella Antigen - Final Urine,Clean Catch Streptococcus pneumoniae Antigen (M - Final 11/19/18 11:03 Blood Culture - Preliminary Peripheral Venipuncture Culture is incubating and being continuously monitored for growth. Final report to follow. 11/19/18 11:03 Blood Culture - Preliminary Peripheral Venipuncture Culture is incubating and being continuously monitored for growth. Final report to follow. - Clinical Findings Intake & Output: Intake & Output 11/19/18 11/20/18 11/20/18 23:59 07:59 15:59 Intake Total 250 / 250 600 / 600 Output Total 300 / 300 100 / 100 Balance -50 / -50 500 / 500 Weight 72 kg - VTE Reasons for not Prescribing Prophylaxis: Refused by patient Consult Discharge Plan - Plan Referrals: Sarah Charles, MASONRY CONTRACTOR ADMINISTRATOR [Primary Care Provider] -
--- NOTE | 2018-11-20 11:41 | Anesthesia Evaluation PreOp ---
Date of Encounter: 11/20/18 Time of Encounter: 11:40 - Past History Planned Operation: bronchoscopy Cardiac History: OK, CHF, HTN, Cardiac Surgery (s/p CABG), Other Pulmonary History: Smoker, COPD, Other (Admitted to ICU with hospital acquired pneumonia, cristela. small pleural effusions. Was temporarily on BIPAP but now stable on nasal cannula with O2 sats in high 90s. V/Q scan negative) MANAGER FIRE History: Seizures (controlled) Other Medical History: Renal (acute kidney injury, hx of lupus and glomeru lonephiritis on chronic lasix use), Other (pancytopenia, on chemo for myelodysplastic syndrome) Alcohol Use: none Drug use: none, opiates (chronic opiate use, hydromorphone IT catheter for chronic back pain) Medications and Allergies Budesonide/Formoterol 160/4.5 [Symbicort 160/4.5] 1 puff IH BID 10/16/16 [ History] Potassium Chloride [Klor-Con] 20 meq PO DAILY 10/16/16 [History] Esomeprazole Magnesium [Nexium] 40 mg PO DAILY 01/31/17 [History] Clopidogrel [Plavix] 75 mg PO DAILY 03/10/17 [History] Nitroglycerin 0.4 mg SL Q5M PRN 12/29/17 [History] Oxycodone HCl/Acetaminophen [Percocet 10-325 mg Tablet] 1 each PO Q6H PRN 07/28/18 [History] Lidocaine/Prilocaine [Emla] 1 appl TP DAILY #30 gm 08/28/18 [Rx] Amoxicillin 875 mg PO BID 11/19/18 [History] Aspirin [Lo-Dose Aspirin EC] 81 mg PO DAILY 11/19/18 [History] Atorvastatin Calcium 80 mg PO BID 11/19/18 [History] Diclofenac Sodium 4 gm TP QID PRN 11/19/18 [History] Hydromorphone (Pf) [Hydromorphone Intrathecal Pump] 9 mg IT AD 11/19/18 [History] Ipratropium/Albuterol Sulfate [Combivent Respimat Inhal [place]] 2 spray IH DAILY 11/19/18 [History] NALOXONE 4 MG Nasal [place] [Narcan] 1 spray NS AD 11/19/18 [History] Allergy/AdvReac Type Severity Reaction Status Date / Time Iodinated Contrast- Oral and AdvReac Difficulty Verified 11/19/18 14:03 IV Dye Breathing [Iodinated Contrast Media - Oral and] lorazepam [From Ativan] AdvReac See Verified 11/19/18 14:03 Comments - Meds/Allergy Pre-op Review Medications Reviewed: Yes Allergies Reviewed: Yes Beta Blockers on Current Med List: No Anesthesia Results - Labs 11/20/18 10:00 11/20/18 05:46 - Imaging EKG: report reviewed (ectopic atrial complex) Anesthesia Exam Selected Entries 11/20/18 11:00 Pulse Rate 100 Respiratory Rate 19 Blood Pressure 130/69 O2 Sat by Pulse Oximetry 93 Oxygen Flow Rate (LPM) 4 Weight: 72 kg NPO (# of Hours): over 8 hours - HEENT Pupil (Motor): Pupils equal Mallampati: II Teeth: Edentulous Oral Opening: Greater than 3 - Cardiac Rhythm: Regular (slight tachycardia, rate 100) - Pulmonary Breath Sounds: bilateral Rales Respiratory Effort: Symmetrical Anesthesia Assess/Plan ASA Score: 3 Level of consciousness: Cooperative Anesthetic Plan: General, MAC Recovery Plan: ICU
[2018-11-20] MEDS ORDERED: *HR* Midazolam HCl 5 MG/5 ML VIAL IVP ONE (12:08)
[2018-11-20] MEDS ORDERED: Lidocaine -MPF 2% 2 ML VIAL ONE (12:21)
[2018-11-20] MEDS ORDERED: Propofol 500 MG/50 ML INFUS..BTL ONE (12:21)
[2018-11-20] MEDS ORDERED: Lidocaine Viscous Oral Soln 15 ML SOLUTION ONE (12:52)
[2018-11-20] MEDS ORDERED: Ondansetron 4 MG/2 ML VIAL IVP PRN (12:56)
[2018-11-20] MEDS ORDERED: Sennosides 8.6 MG TABLET PO PRN (12:56)
[2018-11-20] MEDS ORDERED: Acetaminophen 325 MG TABLET PO PRN (12:56)
[2018-11-20] MEDS ORDERED: Naloxone 0.4 MG/ML INJ IVP PRN (12:56)
[2018-11-20] MEDS ORDERED: Aminoglycoside Consult 1 EACH MC ONE (13:11)
[2018-11-20] MEDS ORDERED: Ondansetron 4 MG/2 ML VIAL ONE (13:22)
[2018-11-20] MEDS ORDERED: Dexamethasone 4 MG/ML VIAL ONE (13:22)
[2018-11-20] MEDS ORDERED: *HR* PHENYLEPHRINE 1,000 MCG/10 ML SYRINGE IVP ONE (13:24)
--- NOTE | 2018-11-20 13:52 | Oncology Inp Progress Note ---
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 He is not a transplant candidate after second opinion at [facility]. R-IPSS score 5.5, Iron deficiency by BM biopsy 01/08/2018 and B12 deficiency Current treatment includes Decitabine initiated 04/14/18 which was decreased to 4 days out of 5 cycle #7 and Aranesp 500 mcg q 3 week initiated 04/27/18. He is s/p cycle #8 Decitabine on 10/27/2018. He has evidence of cytopenias below baseline on admission, may be secondary to sepsis/infectious process/MAEVE in presence of sepsis Chest CT indicated bilateral atypical pneumonia and small bilateral pleural effusions Blood cultures pending WBC count and ANC normal Nutritional stores adequate Eugenia negative, LDH normal S/P 2 units PRBC with adequate response He was given 1 unit platelets this AM per primary team Plan: SPEP, SFLC-pending Platelet transfusion for plt count <10 or if s/s bleeding present He denies any s/s bleeding in stool, he did have a rectal exam in ER with + Guiac, this could be secondary to his thrombocytopenia, he is w/o active s/s bleeding and will continue to monitor Continue supportive management from oncology standpoint Discussed diagnosis, prognosis and general history of MDS with patient and patients daughter at bedside today. They understand the palliative intent of treatment and overall prognosis for his MDS is poor given his multiple comorbidities and high risk cytogenetics. They wish to continue with treatment and to discuss further treatment options in future should he not respond to decitabine which is completely reasonable at this time He does however wish to transition to DNR-CCA DNI Following resolution of his acute illness will plan to resume treatment on outpatient basis (2) Port-A-Cath in place Current Visit: Yes Status: Acute Assessment and plan: Per patient and ER note, patient noticed A-port eroding through skin a couple of days prior to presentation, not assessed on admission secondary to sterile dressing in placed Port removed by IR today (3) Pneumonia Current Visit: Yes Status: Acute Assessment and plan: CT chest revealed bilateral atypical pneumonia and small bilateral pleural effusions. V/Q scan was low probability for pulmonary embolism. Patient was started on empiric Vancomycin, Zosyn, and Levaquin. Urine Legionella and strep pneumo antigens pending Blood cultures pending Respiratory infection panel negative Bronchoscopy today to assess BAL and cultures for infectious source Management per pulmonology team Qualifiers: Pneumonia type: due to unspecified organism Laterality: bilateral Lung location: unspecified part of lung Qualified Code(s): J18.9 - Pneumonia, unspecified organism Oncology: Subj Interval history: Mr. Oreilly is resting in bed with his daughter at bedside. He denies pain. He is drowsy s/p bronchoscopy today at the time of initial visit. SOB has improved since admission. He is afebrile and in no acute distress. - Constitutional General appearance: cooperative, no acute distress, thin, no febrile Exam: conversant - Head Head exam: Present: atraumatic - ENT ENT exam: Present: mucous membranes moist, normal oropharynx - Respiratory Respiratory exam: Present: decreased breath sounds, wheezes. Absent: respiratory distress - Cardiovascular Cardiovascular exam: Present: RRR, tachycardia - GI/Abdominal GI/Abdominal exam: Present: normal bowel sounds, soft. Absent: guarding, rebound, tenderness - Extremities Exam Extremities exam: Present: pedal edema. Absent: calf tenderness - Neurological Exam Neurological exam: Present: alert, oriented X3, no focal deficits, strengths equal and symetr throughout - Psychiatric Psychiatric exam: Present: normal affect, normal mood - Skin Skin exam: Present: dry, intact, normal color, warm Additional comments: dressing to left chest wall D&I s/p port removal Oncology: Obj Data - Labs CBC & Chem 7: 11/20/18 10:00 11/20/18 05:46 Consult Discharge Plan - Plan Referrals: Sarah Charles, REAL ESTATE ATTORNEY [Primary Care Provider] - Inpatient Charges Provider: Dr. Cookie Eaton <Vinod Eaton - Last Filed: 11/20/18 22:15> Date of Encounter: 11/20/18 Oncology: Obj Data - Labs CBC & Chem 7: 11/20/18 10:00 11/20/18 05:46 Inpatient Charges Provider: Dr. Cookie Eaton Follow up - Inpatient: [id number] (s) - Attending Attestation I examined this patient and my medical decision-making was reviewed with the Advanced Practice Nurse. I agree with the documented findings, disposition and treatment plan as described except to the extent set forth below. He is welll known to me and has high risk MDS undergoing palliative therapy with decitabine and aranesp. He is admitted with community versus atypical pneumonia. He clinically responding to antibiotics and bronchoscopy completed with results pending. Exam with coarse/diminished breath sounds. Heart is tachycardic. Would recommend transfusion for platelet <10,000 or 20,000 if evidence of bleeding. Maintain hgb 7 or greater. Contnue supportive measures.
[2018-11-20] MEDS ORDERED: 0.9 % Sodium Chloride 500 ML ONE (15:11)
[2018-11-20 15:24] LABS: Source of Body Fluid RML lung
--- NOTE | 2018-11-20 15:44 | Palliative - Consult Note ---
<Aida Soto - Last Filed: 11/20/18 16:05> Date of Encounter: 11/20/18 Time of Encounter: 14:00 - Assessment and Plan (1) Pain Current Visit: Yes Status: Acute Assessment and plan: Patient has pain 8/10 chronic lower back pain that is stabbing. Intrathecal pain pump in place. Morphine IVP added to help with breakthrough pain. (2) Goals of care, counseling/discussion Current Visit: Yes Status: Acute Assessment and plan: Patient would like to change CODE STATUS to [id number]. Patient desires to continue with aggressive therapies if able, including chemotherapy. Patient acknowledges weakness and agreeable to PT/OT evaluation. Patient would like to go home with physical therapy if possible, but states that he would consider going to [facility] in [place] because his Daughter is a school operations manager there. Daughter (Sadia [phone]) Patient expressed that he would like Sadia to be the decision maker if he is unable. Palliative will continue to follow for assistance with discharge planning. PT/OT consult ordered. (3) Dyspnea Current Visit: Yes Status: Acute Assessment and plan: Patient currently on venti-mask with mild shortness of breath s/p bronchoscopy with oxygen saturation at about 92%. Pulmonary to manage. Qualifiers: Dyspnea type: unspecified Qualified Code(s): R06.00 - Dyspnea, unspecified (4) Anemia Current Visit: Yes Status: Acute Assessment and plan: Last Hemoglobin 7.4, pulmonary to continue to monitor. Qualifiers: Anemia type: unspecified type Qualified Code(s): D64.9 - Anemia, unspecified (5) MDS (myelodysplastic syndrome) Current Visit: Yes Status: Chronic Assessment and plan: Oncology managing. (6) Weight loss, non-intentional Current Visit: No Status: Acute Assessment and plan: Patient NPO at this time, but reports lack of appetite for two days prior to admission. Will consider appetite enhancement once patient able to eat. Palliative-CN HPI - Data of Consult Patient: new to practice Consult date: 11/20/18 Requesting Physician: Sid Tolentino Primary Care Provider: Sarah Charles CNP - Consult Narrative Palliative Care/Comfort Measures: Palliative care Reason for consult: Goals of care History of present illness: Mr. Oreilly is a 68 year old male admitted for shortness of breath since 11/11. Per patient's report the patient went to [place] and recieved oral antibiotics, but continued to worsen. 11/19/18 the patient was admitted for progressing shortness of breath, coughing up blood, and right chest port that was partially removed since 11/14/18. The patient applied antibiotic ointment to the right chest and placed a bandage per his report. Pt with a PMHx of COPD, CHF, SC, CABG, tobacco abuse, seizure disorder, chronic back pain with the use of intrathecal pain pump, HTN, CAD, Lupus, and myelodysplastic syndrome for which he is receiving chemotherapy with at [facility]. CT of chest shows multifocal ground-glass and tree in bud nodules R>L atypical pneumonia, small right and left layered pleural effusions, and mild centrilobar emphysema and chronic scarring bronchiectasis. VQ scan shows low probability of PE. Positive hemoccult. Hemoglobin 5.8 and recieved 2 units PRBC. Renal UTS shows echogenic renal cortex that may represent medical renal disease. Bronchoscopy performed by pulmonary today. Palliative care consulted for goals of care. Upon arrival the patient is resting comfortably in bed with Daughter(Radha- works at [place] Manager at [facility]). Patient is alert and oriented x4, but has trouble processing at times. Patient states his pain is a 8/10 in his lower back and is a stabbing pain. Patient states that his pump was refilled last Friday and typically lasts a week. Patient states that he continues to be short of breath and that when admitted he thought that he would . This has allowed the patient to consider his goals for planning of his decisions for the future. Patient denies nausea, vomiting, numbness, tingling, chest pain, diaphoresis, anxiety. CC: Sid Tolentino - Time Spent with Patient Time: Total time spent is greater than 50% in coordination of care (as documented) at patient's floor/unit and/or counseling patient: Time with patient: 45 minutes Past Med Surg Social Fam HX - Past Medical History Medical history: hypertension, other Additional medical history: Open heart, stents x 12 Psychiatric history: no psych history - Past Surgical History Surgical History: coronary bypass (CABG), other Additional surgical history: implanted port - Social History Smoking Status: Current every day smoker Smokeless Tobacco Status: No Alcohol use: none Drug use: none - Family History Brother History Unknown: Yes Living Status: Cause of : Cancer Hx Family Cancer: Yes Father History Unknown: Yes Living Status: Hx Family Cardiac Disorders: Yes (Hypertension) Hx Family Respiratory Disorders: Yes (Asthma) Mother History Unknown: Yes Hx Family Endocrine Disorder: Yes (Diabetes) Medications and Allergies RX: Budesonide/Formoterol 160/4.5 [Symbicort 160/4.5] 1 puff IH BID 10/16/16 [History] RX: Potassium Chloride [Klor-Con] 20 meq PO DAILY 10/16/16 [History] RX: Esomeprazole Magnesium [Nexium] 40 mg PO DAILY 01/31/17 [History] RX: Clopidogrel [Plavix] 75 mg PO DAILY 03/10/17 [History] RX: Nitroglycerin 0.4 mg SL Q5M PRN 12/29/17 [History] Oxycodone HCl/Acetaminophen [Percocet 10-325 mg Tablet] 1 each PO Q6H PRN 07/28/18 [History] Lidocaine/Prilocaine [Emla] 1 appl TP DAILY #30 gm 08/28/18 [Rx] Amoxicillin 875 mg PO BID 11/19/18 [History] Aspirin [Lo-Dose Aspirin EC] 81 mg PO DAILY 11/19/18 [History] Diclofenac Sodium 4 gm TP QID PRN 11/19/18 [History] Hydromorphone (Pf) [Hydromorphone Intrathecal Pump] 9 mg IT AD 11/19/18 [History] Ipratropium/Albuterol Sulfate [Combivent Respimat Inhal Weed] 2 spray IH DAILY 11/19/18 [History] NALOXONE 4 MG Nasal Weed [Narcan] 1 spray NS AD 11/19/18 [History] RX: Atorvastatin Calcium 80 mg PO BID 11/19/18 [History] Allergy/AdvReac Type Severity Reaction Status Date / Time Iodinated Contrast- Oral and AdvReac Difficulty Verified 11/19/18 14:03 IV Dye Breathing [Iodinated Contrast Media - Oral and] lorazepam [From Ativan] AdvReac See Verified 11/19/18 14:03 Comments - Constitutional Constitutional ROS PAL: decreased appetite (Decreased appetite for two days prior to admission), no chills, no fatigue, no fever(s), no weight loss - Cardiovascular Cardiovascular ROS: no chest pain, no chest pain at rest, no chest pain with activity, no diaphoresis, no pedal edema - Respiratory Respiratory: cough (dry), dyspnea - Gastrointestinal Gastrointestinal: no abdominal pain, no nausea, no vomiting - Psychiatric Psychiatric general PM: change in appetite, no anxiety, no irritability Palliative Care-Exam - Constitutional Vitals: Temp Pulse Resp BP Pulse Ox 98.2 F 106 18 135/72 93 11/20/18 14:00 11/20/18 14:00 11/20/18 14:00 11/20/18 14:00 11/20/18 14:00 General appearance: Present: cooperative, no acute distress. Absent: febrile - Head Head Exam: Present: atraumatic, normal inspection - Eye Eye exam: Present: normal appearance, PERRL - ENT ENT exam: Present: mucous membranes dry - Expanded ENT Exam Mouth Exam: Present: normal external inspection Teeth exam: Present: edentulous - Neck Neck exam: Present: full ROM - Respiratory Respiratory exam: Absent: accessory muscle use, decreased breath sounds, respiratory distress Additional comments: Fine crackles to bilateral bases, equal chest rise. - Cardiovascular Cardiovascular exam: Present: +S1, +S2, tachycardia - Expanded Cardiovascular Exam Peripheral pulses: 1+: Posterior Tibialis (L), Posterior Tibialis (R), Dorsalis Pedis (L) PM, Dorsalis Pedis (R) PM, 2+: Radial (L), Radial (R) - GI/Abdominal Exam GI/Abdominal exam: Present: normal bowel sounds, soft. Absent: tenderness additional comments: flat - Rectal Rectal Exam: Present: deferred - Additional comments: urinal - Extremities Exam Extremities exam: Absent: calf tenderness, pedal edema, tenderness Additional comments: Redness rashlike scaling to bilateral lower extremities - Neurological Exam Neurological exam: Present: alert, oriented X3, strengths equal and symetr throughout Additional comments: strong and equal - Expanded Neurological Exam Patient oriented to: Present: person, place, time Coma Scale Eye Opening: Spontaneous Coma Scale Motor Response: Obeys Commands Coma Scale Verbal Response: Oriented (Slow to process at times) Coma Scale Total: 15 - Psychiatric Psychiatric exam: Present: normal affect. Absent: agitated Additional comments: pleasant - Skin Skin exam: Present: dry, intact, pallor, warm Internal Medicine - CN: Reslt - Labs CBC & Chem 7: 11/20/18 10:00 11/20/18 05:46 Labs: Short CBC 11/19/18 11/20/18 11/20/18 Range/Units 19:39 05:46 10:00 WBC 3.0 L 3.3 L 4.5 (4.3-11.1) K/mcL Hgb 7.2 L 7.0 L 7.4 L (12.9-16.9) g/dL Hct 21.3 L 20.7 L 21.6 L (37.5-50.1) % Plt Count 20 L* 27 L* 21 L* (140-400) K/mcL Neutrophils # 2.6 3.0 (1.6-8.9) K/mcL BMP 11/19/18 11/20/18 11:03 05:46 Sodium 138 139 Potassium 4.0 3.9 Chloride 105 107 Carbon Dioxide 24 21 L BUN 38 H 42 H Creatinine 1.72 H 1.64 H Glucose 133 H 128 H Calcium 8.2 L 8.2 L Liver Function 11/19/18 Range/Units 11:03 Total Bilirubin 0.4 (0.3-1.0) mg/dL AST 13 (13-39) Units/L ALT 9 (7-52) Units/L Alkaline Phosphatase 103 (34-104) Units/L Albumin 2.6 L (3.5-5.7) g/dL Urine 11/19/18 Range/Units 16:44 Urine Color Yellow (Yellow) Urine Clarity Clear (Clear) Urine pH 6.0 (5.0-8.0) pH Units Ur Specific [place] 1.010 (1.010-1.025) Urine Protein >=300 H (Neg-Trace) mg/dL Urine Glucose (UA) 100 H (Normal) mg/dL - ABG Interpretation ABG results: ABG ABG pH 7.35 pH Units (7.32-7.45) 11/19/18 14:06 ABG pCO2 33 mmHg (35-45) L 11/19/18 14:06 ABG pO2 95 mmHg (85-104) 11/19/18 14:06 ABG O2 Saturation 97 % (95-98) 11/19/18 14:06 PT/INR, D-dimer PT 14.6 Seconds (9.4-12.1) H 11/20/18 05:46 - Impressions Impressions Retroperitoneum Ultrasound 11/19/18 15:26 IMPRESSION: 1. No evidence of hydronephrosis. 2. Echogenic renal cortex may represent medical renal disease. D/ / Alejandro Jones MD / Alejandro Jones MD Interpreting Provider: Alejandro Jones MD Consult Discharge Plan - Plan Referrals: Sarah Charles, [employer] [Primary Care Provider] - Palliative Quality Palliative Quality: Screen for Code Status: Yes, Screen for Goals of Care: Yes, Screen for Pain: Yes, If Pain Regimen Started, Initiate Bowel Regimen: Yes, Scre en for Nausea/Vomitting: Yes Code Status: 11/19/18 14:44 Resuscitation Status: Active [RES] Routine Comment: Resuscitation Status: Full Code 11/20/18 14:56 DNR [Resuscitation Status: Active] [RES] Routine Comment: Resuscitation Status: [id number] Palliative Scale - Palliative Performance Scale How ambulatory is this patient?: Reduced What is patient's level of activity and evidence of disease?: Unable normal job/work, Significant disease How much self-care assistance does patient require?: Occasional assistance necessary How much oral intake does the patient have?: Normal or reduced What is this patient's level of consciousness?: Full or confusion Palliative Performance Score: 60 % <Luci Chong L - Last Filed: 11/20/18 16:13> Date of Encounter: 11/20/18 - Assessment and Plan (1) Anemia Current Visit: Yes Status: Acute Assessment and plan: H&H Q6h per primary team. Qualifiers: Anemia type: unspecified type Qualified Code(s): D64.9 - Anemia, unspecified (2) Dyspnea Current Visit: Yes Status: Acute Assessment and plan: Morphine added for improved control of pain and dyspnea. Qualifiers: Dyspnea type: unspecified Qualified Code(s): R06.00 - Dyspnea, unspecified (3) Goals of care, counseling/discussion Current Visit: Yes Status: Acute Assessment and plan: CODE STATUS changed per patient request. Educated can change CODE STATUS at any time. (4) Pain Current Visit: Yes Status: Acute (5) MDS (myelodysplastic syndrome) Current Visit: Yes Status: Chronic (6) Weight loss, non-intentional Current Visit: No Status: Acute Palliative-CN HPI - Data of Consult Patient: new to practice Requesting Physician: Sid Tolentino Primary Care Provider: Sarah Charles CNP - Consult Narrative Palliative Care/Comfort Measures: Palliative care CC: Sid Tolentino - Time Spent with Patient Time: Total time spent is greater than 50% in coordination of care (as documented) at patient's floor/unit and/or counseling patient: Time with patient: 45 minutes - Constitutional Constitutional ROS PAL: decreased appetite, no chills, no fatigue, no fever(s), no weight loss - Cardiovascular Cardiovascular ROS: no chest pain, no chest pain at rest, no chest pain with activity, no diaphoresis, no radiating jaw, neck or arm pain, no pedal edema - Respiratory Respiratory: cough, dyspnea - Gastrointestinal Gastrointestinal: no abdominal pain, no nausea, no vomiting - Psychiatric Psychiatric general PM: change in appetite, no anxiety, no irritability Palliative Care-Exam - Constitutional Vitals: Temp Pulse Resp BP Pulse Ox 98.4 F 106 18 135/72 93 11/20/18 15:58 11/20/18 14:00 11/20/18 14:00 11/20/18 14:00 11/20/18 14:00 General appearance: Present: cooperative, no acute distress. Absent: febrile - Head Head Exam: Present: atraumatic, normal inspection - Eye Eye exam: Present: normal appearance, PERRL - ENT ENT exam: Present: mucous membranes dry - Expanded ENT Exam Mouth Exam: Present: normal external inspection Teeth exam: Present: edentulous - Neck Neck exam: Present: full ROM - Respiratory Respiratory exam: Absent: accessory muscle use, decreased breath sounds, respi ratory distress - Cardiovascular Cardiovascular exam: Present: +S1, +S2, tachycardia - Expanded Cardiovascular Exam Peripheral pulses: 1+: Posterior Tibialis (L), Posterior Tibialis (R), Dorsalis Pedis (L) PM, Dorsalis Pedis (R) PM, 2+: Radial (L), Radial (R) - GI/Abdominal Exam GI/Abdominal exam: Present: normal bowel sounds, soft. Absent: tenderness - Rectal Rectal Exam: Present: deferred - Extremities Exam Extremities exam: Absent: calf tenderness, pedal edema, tenderness - Neurological Exam Neurological exam: Present: alert, oriented X3, strengths equal and symetr throughout - Expanded Neurological Exam Patient oriented to: Present: person, place, time Coma Scale Eye Opening: Spontaneous Coma Scale Motor Response: Obeys Commands Coma Scale Verbal Response: Oriented Coma Scale Total: 15 - Psychiatric Psychiatric exam: Present: normal affect. Absent: agitated - Skin Skin exam: Present: dry, intact, pallor, warm Internal Medicine - CN: Reslt - Labs CBC & Chem 7: 11/20/18 10:00 11/20/18 05:46 Labs: Short CBC 11/19/18 11/20/18 11/20/18 Range/Units 19:39 05:46 10:00 WBC 3.0 L 3.3 L 4.5 (4.3-11.1) K/mcL Hgb 7.2 L 7.0 L 7.4 L (12.9-16.9) g/dL Hct 21.3 L 20.7 L 21.6 L (37.5-50.1) % Plt Count 20 L* 27 L* 21 L* (140-400) K/mcL Neutrophils # 2.6 3.0 (1.6-8.9) K/mcL BMP 11/19/18 11/20/18 11:03 05:46 Sodium 138 139 Potassium 4.0 3.9 Chloride 105 107 Carbon Dioxide 24 21 L BUN 38 H 42 H Creatinine 1.72 H 1.64 H Glucose 133 H 128 H Calcium 8.2 L 8.2 L Liver Function 11/19/18 Range/Units 11:03 Total Bilirubin 0.4 (0.3-1.0) mg/dL AST 13 (13-39) Units/L ALT 9 (7-52) Units/L Alkaline Phosphatase 103 (34-104) Units/L Albumin 2.6 L (3.5-5.7) g/dL Urine 11/19/18 Range/Units 16:44 Urine Color Yellow (Yellow) Urine Clarity Clear (Clear) Urine pH 6.0 (5.0-8.0) pH Units Ur Specific [place] 1.010 (1.010-1.025) Urine Protein >=300 H (Neg-Trace) mg/dL Urine Glucose (UA) 100 H (Normal) mg/dL - ABG Interpretation ABG results: ABG ABG pH 7.35 pH Units (7.32-7.45) 11/19/18 14:06 ABG pCO2 33 mmHg (35-45) L 11/19/18 14:06 ABG pO2 95 mmHg (85-104) 11/19/18 14:06 ABG O2 Saturation 97 % (95-98) 11/19/18 14:06 PT/INR, D-dimer PT 14.6 Seconds (9.4-12.1) H 11/20/18 05:46 - Impressions Impressions Retroperitoneum Ultrasound 11/19/18 15:26 IMPRESSION: 1. No evidence of hydronephrosis. 2. Echogenic renal cortex may represent medical renal disease. D/ / Alejandro Jones MD / Alejandro Jones MD Interpreting Provider: Alejandro Jones MD Palliative Quality Palliative Quality: Screen for Code Status: Yes, Screen for Goals of Care: Yes, Screen for Pain: Yes, If Pain Regimen Started, Initiate Bowel Regimen: Yes, Screen for Nausea/Vomitting: Yes Code Status: 11/19/18 14:44 Resuscitation Status: Active [RES] Routine Comment: Resuscitation Status: Full Code 11/20/18 14:56 DNR [Resuscitation Status: Active] [RES] Routine Comment: Resuscitation Status: [id number] Palliative Scale - Palliative Performance Scale How ambulatory is this patient?: Reduced What is patient's level of activity and evidence of disease?: Unable normal job/work, Significant disease How much self-care assistance does patient require?: Occasional assistance necessary How much oral intake does the patient have?: Normal or reduced What is this patient's level of consciousness?: Full or confusion Palliative Performance Score: 60 %
--- NOTE | 2018-11-20 16:44 | Electrocardiograph Report ---
[address] [place], [place] [address] Test Date: 2018-11-19 Pat Name: Loco Oreilly Department: [id number] Room: [facility] Gender: M Chicken Catcher: : 1950 Requested By: Iglesia Roberts Order Number: [id number] Reading MD: Rui Camacho Measurements Intervals [place] Rate: 138 P: 103 VA: 119 QRS: -42 QRSD: 138 T: 62 QT: 321 QTc: 487 Interpretive Statements Sinus tachycardia Right bundle branch block Probable inferior infarct, old Electronically Signed On 11-20-2018 16:43:00 EST by Rui Camacho
[2018-11-20] MEDS ORDERED: *HR* Metoprolol 5 MG/5 ML VIAL IVP ONE ×2 (17:34→17:36)
[2018-11-20 20:00] LABS: Appearance of Body Fluid Cloudy (Clear); Volume of Body Fluid 13 mL
[2018-11-20 20:06] LABS: Appearance of Body Fluid Cloudy (Clear); Volume of Body Fluid 20 mL
[2018-11-21] MEDS: Ipratropium/Albuterol Neb 3 ML IH SCH ×4 (04:32→21:14)
[2018-11-21] MEDS: Pantoprazole 40 MG VIAL IVP SCH ×2 (05:08→17:02)
[2018-11-21] MEDS: *HR* Morphine 2 MG/ML SYRINGE IVP PRN ×2 (05:13→14:49)
[2018-11-21 05:45] LABS: Hematocrit 18.1 % (37.5-50.1); Immature Granulocytes % 0.8 % (0-4); Immature Platelets 11.5 % (1.1-6.1); Lymphocytes # 0.3 K/mcL (0.6-4.6); Lymphocytes % 7.3 %; Mean Corpuscular HGB Conc 33.1 g/dL (31.6-35.5); Mean Corpuscular Hemoglobin 35.7 pg (28.0-33.3); Mean Corpuscular Volume 107.7 fL (83.0-100.0); Monocytes # 0.1 K/mcL (0.0-1.3); Monocytes % 1.9 %; Red Blood Count 1.68 M/mcL (4.19-5.50)
[2018-11-21 05:50] LABS: Neutrophils # 3.3 K/mcL (1.6-8.9)
[2018-11-21 05:53] LABS: Platelet Count 19 K/mcL (140-400)
[2018-11-21 06:02] LABS: Potassium 3.5 mEq/L (3.5-5.1)
[2018-11-21 06:10] LABS: Anisocytosis 3+ (Not Present)
[2018-11-21 06:11] LABS: Microcytosis Present (Not Present)
[2018-11-21 06:12] LABS: Platelet Estimate Decreased (Normal)
[2018-11-21] MEDS ORDERED: 0.9 % Sodium Chloride 250 ML ONE ×2 (08:22→10:35)
--- NOTE | 2018-11-21 11:43 | Event Note ---
Date of Encounter: 11/21/18 Time of Encounter: 08:00 The Case was signed out to the hospitalist.
--- NOTE | 2018-11-21 12:42 | Internal Medicine Consult Note ---
Date of Encounter: 11/21/18 Time of Encounter: 11:00 - Assessment and plan (1) HAP (hospital-acquired pneumonia) Current Visit: Yes Status: Acute (2) COPD (chronic obstructive pulmonary disease) Current Visit: Yes Status: Chronic Qualifiers: COPD type: unspecified COPD Qualified Code(s): J44.9 - Chronic obstructive pulmonary disease, unspecified (3) Acute respiratory failure with hypoxia Current Visit: Yes Status: Acute (4) MDS (myelodysplastic syndrome) Current Visit: Yes Status: Chronic (5) Anemia Current Visit: Yes Status: Chronic Qualifiers: Anemia type: bone marrow failure Bone marrow failure anemia type: myelophthisis Qualified Code(s): 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 transplanted heart: [place] heart Associated angina: without angina Qualified Code(s): I25.10 - Atherosclerotic heart disease of [place] coronary artery without angina pectoris (10) PAD (peripheral artery disease) Current Visit: Yes Status: Chronic (11) GERD (gastroesophageal reflux disease) Current Visit: Yes Status: Chronic Qualifiers: Esophagitis presence: esophagitis presence not specified Qualified Code(s): K21.9 - Gastro-esophageal reflux disease without esophagitis (12) Chronic low back pain Current Visit: Yes Status: Chronic Qualifiers: Back pain laterality: midline Sciatica presence: without sciatica Qualified Code(s): M54.5 - Low back pain; G89.29 - Other chronic pain - Time Spent With Patient Total time spent is greater than 50% in coordination of care (as documented) at patient's floor/unit and/or counseling patient: 25 - 35 minutes Internal Medicine - CN: HPI - Data of Consult Patient: new to practice Consult date: 11/21/18 Requesting Physician: DR. WILSON - Consult Narrative Reason for consult: MEDICAL MGT History of present illness: NOTES. Current The patient is a 68-year-old male. He has underlying myelodysplastic syndrome, lupus, non-oxygen dependent COPD, CAD, PAD, GERD and chronic low back pain. He was admitted to the pulmonology service 2 days ago with progressing dyspnea and fatigue. The patient was found to be very hypoxic in the emergency room; currently using 5 L/min of oxygen via nasal cannula. CT of chest done at admission revealed bilateral atypical pneumonia with small bilateral pleural effusion. VQ scan was low probability for pulmonary embolism. Blood testing revealed hemoglobin of 7.2 with WBC of 3.0 thousand and platelet count of 20,000 (he has had myelodysplastic syndrome). The patient had hemoccult of stool done in the ED. It was positive. The patient was admitted with diagnosis of hospital-acquired pneumonia. Antibiotics were ordered by Anshul pulmonary diseases 2 units of packed red blood cells and 1 unit of platelets were transfused. Oncology/hematology consult was requested. After getting this patient stabilized, he was transferred to stepdown unit. The patient feels weak and tired. He uses supplemental oxygen at 5 L/min nasal cannula. Complains of low back pain. Denies chest pain. He does have mild cough but not wheezing. He has normal speech and swallowing. He has not done any ambulation since admitting him to the hospital. PAST MEDICAL HX: He has underlying myelodysplastic syndrome, lupus, non-oxygen dependent COPD, CAD, PAD, GERD and chronic low back pain. He has developed severe anemia. With mild leukopenia and severe thrombocytopenia. PAST FAMILY HX: See below.. <----------------------- PAST SOCIAL HX: See below.. REVIEW OF SYSTEMS: All 14 organ systems were reviewed by me with the patient. Positive and pertinent negative findings are listed above. The rest of organ systems is negative. PHYSICAL EXAM: Skin: Free of rash and discoloration. Eyes: Sclera is white. There is no discharge from eyes. ENMT: Oral/pharyngeal mucosa is normal in appearance. There is no discharge from nose or ears. Respiratory: Normal breath sounds with no crackles and wheezes bilaterally. CV: Heart is regular with no gallop or murmur. GI: Abdomen is flat and soft with no palpable mass or visceromegaly. : There is no tenderness in patient's flanks bilaterally. Neuro exam: He has good strength in upper and lower extremities. He has normal eye movements. Psychiatric: He has normal affect. His thought process is appropriate to the situation. ADDITIONAL DATA: The patient had bronchoscopy done yesterday. It showed evidence for right middle lobe pneumonia and the right lower lobe pneumonia. Bronchoalveolar lavage was performed. His last chest x-ray was done at admission. It showed right-sided pneumonia and pulmonary congestion. The last echocardiogram was done in January 2017 it showed LVEF of 60%. There was evidence for mild diastolic dysfunction. Blood work from today is showing hemoglobin of 6.0 with WBC of 3.7 thousand and platelet count of 19,000. Hemoglobin was 7.4 yesterday. Electrolytes are normal. Creatinine is 1.85. It was 1.12 in April 2018. UA shows some protein and microscopic hematuria. No evidence for UTI. A/P: Hospital-acquired pneumonia/COPD/acute hypoxic respiratory failure. To continue IV Zosyn/IV Levaquin. To continue supplemental oxygen and nebulizer treatments with DuoNeb. Awaiting results from bronchoscopy (samples taken). I expect the pulmonary diseases will continue follow-up for this patient. Myelodysplastic syndrome with severe anemia/thrombocytopenia. He will get 2 more units of packed red blood cells and 1 unit of platelets today. Hematology/oncology is consulted. Possible acute on chronic diastolic heart failure. I will give him 1 dose of IV Lasix today. Then, he will be getting 40 mg of IV Lasix every morning. Acute kidney injury. He has good intake of by mouth fluids. The problem should get better with all the treatments mentioned above. Lupus. In remission. CAD/PAD. I will restart his medications for that problem GERD. On IV Protonix. Chronic low back pain. Getting when necessary Percocet and/or IV morphine sulfate. Past Med Surg Social Fam HX - Past Medical History Medical history: hypertension, other Additional medical history: Open heart, stents x 12 Psychiatric history: no psych history - Past Surgical History Surgical History: coronary bypass (CABG), other Additional surgical history: implanted port - Social History Smoking Status: Current every day smoker Smokeless Tobacco Status: No Alcohol use: none Drug use: none - Family History Mother History Unknown: Yes Hx Family Endocrine Disorder: Yes (Diabetes) Father History Unknown: Yes Living Status: Hx Family Cardiac Disorders: Yes (Hypertension) Hx Family Respiratory Disorders: Yes (Asthma) Brother History Unknown: Yes Living Status: Cause of : Cancer Hx Family Cancer: Yes Internal Medicine - CN: Meds Budesonide/Formoterol 160/4.5 [Symbicort 160/4.5] 1 puff IH BID 10/16/16 [History] Potassium Chloride [Klor-Con] 20 meq PO DAILY 10/16/16 [History] Esomeprazole Magnesium [Nexium] 40 mg PO DAILY 01/31/17 [History] Clopidogrel [Plavix] 75 mg PO DAILY 03/10/17 [History] Nitroglycerin 0.4 mg SL Q5M PRN 12/29/17 [History] Oxycodone HCl/Acetaminophen [Percocet 10-325 mg Tablet] 1 each PO Q6H PRN 07/28/18 [History] Lidocaine/Prilocaine [Emla] 1 appl TP DAILY #30 gm 08/28/18 [Rx] Amoxicillin 875 mg PO BID 11/19/18 [History] Aspirin [Lo-Dose Aspirin EC] 81 mg PO DAILY 11/19/18 [History] Atorvastatin Calcium 80 mg PO BID 11/19/18 [History] Diclofenac Sodium 4 gm TP QID PRN 11/19/18 [History] Hydromorphone (Pf) [Hydromorphone Intrathecal Pump] 9 mg IT AD 11/19/18 [History] Ipratropium/Albuterol Sulfate [Combivent Respimat Inhal [place]] 2 spray IH DAILY 11/19/18 [History] NALOXONE 4 MG Nasal [place] [Narcan] 1 spray NS AD 11/19/18 [History] Allergy/AdvReac Type Severity Reaction Status Date / Time Iodinated Contrast- Oral and AdvReac Difficulty Verified 11/19/18 14:03 IV Dye Breathing [Iodinated Contrast Media - Oral and] lorazepam [From Ativan] AdvReac See Verified 11/19/18 14:03 Comments Hospitalist - CN: Exam - Constitutional Vitals: Temp Pulse Resp BP Pulse Ox 98.1 F 100 17 132/72 89 11/21/18 11:39 11/21/18 11:39 11/21/18 11:39 11/21/18 11:39 11/21/18 11:39 General appearance IM: Present: A&O X 3, no acute distress, answers questions appropriately Exam: xx Internal Medicine - CN: Reslt - Labs CBC & Chem 7: 11/21/18 05:06 11/21/18 05:06 Labs: Short CBC 11/21/18 Range/Units 05:06 WBC 3.7 L (4.3-11.1) K/mcL Hgb 6.0 L* (12.9-16.9) g/dL Hct 18.1 L (37.5-50.1) % Plt Count 19 L* (140-400) K/mcL Neutrophils # 3.3 (1.6-8.9) K/mcL BMP 11/21/18 05:06 Sodium 139 Potassium 3.5 Chloride 107 Carbon Dioxide 22 L BUN 46 H Creatinine 1.85 H Glucose 154 H Calcium 8.0 L - ABG Interpretation ABG results: ABG ABG pH 7.35 pH Units (7.32-7.45) 11/19/18 14:06 ABG pCO2 33 mmHg (35-45) L 11/19/18 14:06 ABG pO2 95 mmHg (85-104) 11/19/18 14:06 ABG O2 Saturation 97 % (95-98) 11/19/18 14:06 PT/INR, D-dimer PT 14.6 Seconds (9.4-12.1) H 11/20/18 05:46 - Impressions Impressions Tunnelled Catheter Removal 11/20/18 00:00 IMPRESSION: Successful subcutaneous Port-A-Cath removal D/ / Jose London / Jose London Interpreting Provider: Jose London Consult Discharge Plan - Plan Referrals: Sarah Charles, [employer] OFFICER [Primary Care Provider] -
[2018-11-21] MEDS: Piperacillin/Tazobactam 3.375 GM in 0.9 % Sodium Chloride Mini Bag 100 ML IVPB SCH ×2 (12:54→18:21)
--- NOTE | 2018-11-21 13:33 | Palliative Progress Note ---
Date of Encounter: 11/21/18 Time of Encounter: 10:00 - Assessment and plan (1) Anemia Current Visit: Yes Status: Chronic Assessment and plan: H&H 6.0/18.1; receiving blood infusion. Managed by Primary Team. (2) Dyspnea Current Visit: Yes Status: Acute Assessment and plan: Patient denies dyspnea during assessment. Oxygen saturation 93% on 5L NC. Qualifiers: Qualified Code(s): R06.00 - Dyspnea, unspecified (3) Goals of care, counseling/discussion Current Visit: Yes Status: Acute Assessment and plan: Patient reports he desires to go home with HH with PT/OT at home if possible. Will agree to go to [facility] if rehab is deemed necessary, concern for taking his entire check as he has an 18 year old that depends on his income. Patient lives with girlfriend whom cares for him at home. Confirmed CODE STATUS as DNRCCA/DNI, verbalized agreement. Palliative care consulted for goals of care. Goals of care established. Palliative care will sign off, please reconsult as needed. Prior to signing off, home medications resumed for pain control. (4) Pain Current Visit: Yes Status: Acute Assessment and plan: Patient has taken 1 dose Morphine IVP PRN in the last 24 hours. Resumed home pain medication regiment of Percocet 10/325 q6h PRN. (5) MDS (myelodysplastic syndrome) Current Visit: Yes Status: Chronic Assessment and plan: Patient desires to continue Cancer treatment outpatient, once medically able. (6) Weight loss, non-intentional Current Visit: No Status: Acute - Time Spent With Patient Total time spent is greater than 50% in coordination of care (as documented) at patient's floor/unit and/or counseling patient: less than 15 minutes - Subjective Interval history: Patient sitting up in bed, no family present at bedside upon arrival. Patient alert and oriented times 4. Patient receiving blood transfusion during assessment. Reports did have port removed yesterday. Patient in good spirits and inquiring when he can go home. Denies anxiety, nausea, and vomiting. Reports chronic back pain, rated 8/10, reports it is time for his as needed medication, which patient reports helps. Patient denies dyspnea. - Constitutional Vitals: Abnormal lab results WBC 3.7 K/mcL (4.3-11.1) L 01/05/19 05:06 RBC 1.68 M/mcL (4.19-5.50) L 11/21/18 05:06 Hgb 6.0 g/dL (12.9-16.9) L* 11/21/18 05:06 Hct 18.1 % (37.5-50.1) L 11/21/18 05:06 MCV 107.7 fL (83.0-100.0) H 11/21/18 05:06 MCH 35.7 pg (28.0-33.3) H 11/21/18 05:06 Plt Count 19 K/mcL (140-400) L* 11/21/18 05:06 Lymphocytes # 0.3 K/mcL (0.6-4.6) L 11/21/18 05:06 Platelet Estimate Decreased (Normal) L 11/21/18 05:06 Immature Plt Fraction 11.5 % (1.1-6.1) H 11/21/18 05:06 Polychromasia 1+ (Not Present) A 11/19/18 11:03 Poikilocytosis 1+ (Not Present) A 11/19/18 11:03 Anisocytosis 3+ (Not Present) A 11/21/18 05:06 Microcytosis Present (Not Present) A 11/21/18 05:06 PT 14.6 Seconds (9.4-12.1) H 11/20/18 05:46 Fibrinogen 921 mg/dL (169-393) H* 11/20/18 14:07 ABG pCO2 33 mmHg (35-45) L 11/19/18 14:06 ABG HCO3 18 mEq/L (21-27) L 11/19/18 14:06 ABG Total CO2 19 mEq/L (20-26) L 11/19/18 14:06 ABG Base Excess -7 mEq/L (-2 to 3) L 11/19/18 14:06 Carbon Dioxide 22 mEq/L (23-29) L 11/21/18 05:06 BUN 46 mg/dL (8-23) H 11/21/18 05:06 Creatinine 1.85 mg/dL (0.70-1.30) H 11/21/18 05:06 Est GFR ( Amer) 45 (> 60) L 11/21/18 05:06 Est GFR (Non-Af Amer) 37 (> 60) L 11/21/18 05:06 Glucose 154 mg/dL (70-105) H 11/21/18 05:06 POC Glucose 124 mg/dL (70-99) H 11/19/18 15:50 Calculated Osmolality 303 (280-300) H 11/21/18 05:06 Calcium 8.0 mg/dL (8.6-10.3) L 11/21/18 05:06 Iron 38 mcg/dL (65-175) L 11/20/18 05:46 % Saturation 18 % (20-55) L 11/20/18 05:46 Transferrin 149 mg/dL (203-362) L 11/20/18 05:46 Ferritin 1132 ng/mL (20-250) H 11/20/18 05:46 Serum Total Protein 6.0 g/dL (6.4-8.9) L 11/19/18 11:03 Albumin 2.6 g/dL (3.5-5.7) L 11/19/18 11:03 Albumin/Globulin Ratio 0.8 (1.1-2.2) L 11/19/18 11:03 Urine Protein >=300 mg/dL (Neg-Trace) H 11/19/18 16:44 Urine Glucose (UA) 100 mg/dL (Normal) H 11/19/18 16:44 Urine Blood Small (Negative) H 11/19/18 16:44 Urine Microscopic RBC 5-15 per hpf (0-3) H 11/19/18 16:44 Urine Microscopic WBC 3-5 per hpf (0-3) H 11/19/18 16:44 Ur Squamous Epith Cells Many per lpf (None-Few) H 11/19/18 16:44 Fluid Appearance Cloudy (Clear) A 11/20/18 13:37 General appearance: Present: cooperative, no acute distress - Head Head exam: Present: atraumatic, normal inspection - Eye Eye exam: Present: EOMI, normal appearance. Absent: periorbital swelling, periorbital tenderness Pupils: Present: normal accommodation - ENT ENT exam: Present: mucous membranes moist, normal external ear exam - Neck Neck exam: Present: full ROM, normal inspection - Respiratory Respiratory exam: Present: CTAB, wheezes (LLL). Absent: accessory muscle use, respiratory distress, tachypnea - Cardiovascular Cardiovascular exam: Present: +S1, +S2 - GI/Abdominal GI/Abdominal exam: Present: normal bowel sounds, soft. Absent: tenderness - Rectal Rectal exam: Present: deferred - Extremities Exam Extremities exam: Present: full ROM, normal inspection. Absent: calf tenderness, pedal edema - Back Exam Back exam: Present: full ROM, normal inspection - Neurological Exam Neurological exam: Present: alert, oriented X3, strengths equal and symetr throughout. Absent: altered - Psychiatric Psychiatric exam: Present: normal affect, normal mood - Skin Skin exam: Present: dry, intact, normal color, warm Palliative Quality Palliative Quality: Screen for Code Status: Yes, Screen for Goals of Care: Yes, Screen for Pain: Yes, If Pain Regimen Started, Initiate Bowel Regimen: Yes, Screen for Nausea/Vomitting: Yes Code Status: 11/19/18 14:44 Resuscitation Status: Active [RES] Routine Comment: Resuscitation Status: Full Code 11/20/18 14:56 DNR [Resuscitation Status: Active] [RES] Routine Comment: Resuscitation Status: [id number] - Labs CBC & Chem 7: 11/21/18 05:06 11/21/18 05:06 Labs: Laboratory Results - last 24 hr 11/19/18 11/19/18 11/20/18 13:10 15:50 13:25 WBC RBC Hgb Hct MCV MCH MCHC RDW Plt Count MPV Immature Gran % Seg Neutrophils % Lymphocytes % Monocytes % Eosinophils % Basophils % Neutrophils # Lymphocytes # Monocytes # Eosinophils # Basophils # Platelet Estimate Immature Plt Fraction Anisocytosis Microcytosis Fibrinogen Sodium Potassium Chloride Carbon Dioxide BUN Creatinine Est GFR ( Amer) Est GFR (Non-Af Amer) BUN/Creatinine Ratio Glucose POC Glucose 124 H Calculated Osmolality Calcium Fluid Source RLL lung Fluid Volume 20 Fluid Appearance Cloudy A Fluid RBC TNP Fld Tot Nucleated Cell TNP Fluid Seg Neutrophil % 94.0 Fluid Lymphocytes % 4.0 Fluid Other Cells % 2.0 Blood Type B POSITIVE Antibody Screen NEGATIVE CLARIBEL, Poly Interpret NEG Crossmatch See Detail 11/20/18 11/20/18 11/21/18 13:37 14:07 05:06 WBC 3.7 L RBC 1.68 L Hgb 6.0 L* Hct 18.1 L MCV 107.7 H MCH 35.7 H MCHC 33.1 RDW TNP Plt Count 19 L* MPV TNP Immature Gran % 0.8 Seg Neutrophils % 90.0 Lymphocytes % 7.3 Monocytes % 1.9 Eosinophils % 0.0 Basophils % 0.0 Neutrophils # 3.3 Lymphocytes # 0.3 L Monocytes # 0.1 Eosinophils # 0.0 Basophils # 0.0 Platelet Estimate Decreased L Immature Plt Fraction 11.5 H Anisocytosis 3+ A Microcytosis Present A Fibrinogen 921 H* Sodium Potassium Chloride Carbon Dioxide BUN Creatinine Est GFR ( Amer) Est GFR (Non-Af Amer) BUN/Creatinine Ratio Glucose POC Glucose Calculated Osmolality Calcium Fluid Source RML lung Fluid Volume 13 Fluid Appearance Cloudy A Fluid RBC TNP Fld Tot Nucleated Cell TNP Fluid Seg Neutrophil % 98.0 Fluid Lymphocytes % 2.0 Fluid Other Cells % Blood Type Antibody Screen CLARIBEL, Poly Interpret Crossmatch 11/21/18 05:06 WBC RBC Hgb Hct MCV MCH MCHC RDW Plt Count MPV Immature Gran % Seg Neutrophils % Lymphocytes % Monocytes % Eosinophils % Basophils % Neutrophils # Lymphocytes # Monocytes # Eosinophils # Basophils # Platelet Estimate Immature Plt Fraction Anisocytosis Microcytosis Fibrinogen Sodium 139 Potassium 3.5 Chloride 107 Carbon Dioxide 22 L BUN 46 H Creatinine 1.85 H Est GFR ( Amer) 45 L Est GFR (Non-Af Amer) 37 L BUN/Creatinine Ratio 25 Glucose 154 H POC Glucose Calculated Osmolality 303 H Calcium 8.0 L Fluid Source Fluid Volume Fluid Appearance Fluid RBC Fld Tot Nucleated Cell Fluid Seg Neutrophil % Fluid Lymphocytes % Fluid Other Cells % Blood Type Antibody Screen CLARIBEL, Poly Interpret Crossmatch - Impressions Impressions Tunnelled Catheter Removal 11/20/18 00:00 IMPRESSION: Successful subcutaneous Port-A-Cath removal D/ / Jose London / Jose London Interpreting Provider: Jose London - ABG Interpretation ABG results: ABG ABG pH 7.35 pH Units (7.32-7.45) 11/19/18 14:06 ABG pCO2 33 mmHg (35-45) L 11/19/18 14:06 ABG pO2 95 mmHg (85-104) 11/19/18 14:06 ABG O2 Saturation 97 % (95-98) 11/19/18 14:06 PT/INR, D-dimer PT 14.6 Seconds (9.4-12.1) H 11/20/18 05:46 Palliative Scale - Palliative Performance Scale How ambulatory is this patient?: Reduced What is patient's level of activity and evidence of disease?: Unable normal job/work, Significant disease How much self-care assistance does patient require?: Occasional assistance n ecessary How much oral intake does the patient have?: Normal or reduced What is this patient's level of consciousness?: Full or confusion Palliative Performance Score: 60 % Consult Discharge Plan - Plan Referrals: Sarah Charles, [employer]OTH [Primary Care Provider] -
[2018-11-21] MEDS: *HR* OxyCODONE/APAP 10/325 TABLET PO PRN ×2 (13:52→21:25)
[2018-11-21] MEDS: Levofloxacin 750 MG/150 ML 750 MG/150 ML BAG IVPB SCH (17:02)
[2018-11-21] MEDS ORDERED: Furosemide 40 MG/4 ML VIAL IVP ONE (23:12)
[2018-11-22] MEDS ORDERED: traMADol 50 MG TABLET PO PRN ×2 (00:01→00:15)
[2018-11-22 00:10] LABS: Alpha 2 Globulin (PEP) 1.18 g/dL (0.48-1.05); Beta Globulin (PEP) 0.75 g/dL (0.48-1.10)
[2018-11-22] MEDS: Piperacillin/Tazobactam 3.375 GM in 0.9 % Sodium Chloride Mini Bag 100 ML IVPB SCH ×3 (00:39→15:49)
[2018-11-22] MEDS: Ipratropium/Albuterol Neb 3 ML IH SCH ×4 (04:09→22:57)
[2018-11-22 04:13] LABS: Calcium 7.9 mg/dL (8.6-10.3); Magnesium 1.8 mg/dL (1.6-2.6); Potassium 3.5 mEq/L (3.5-5.1)
[2018-11-22 04:21] LABS: Basophils % 0.2 %; Hematocrit 22.5 % (37.5-50.1); Hemoglobin 7.4 g/dL (12.9-16.9); Immature Granulocytes % 1.4 % (0-4); Immature Platelets 14.7 % (1.1-6.1); Lymphocytes # 0.3 K/mcL (0.6-4.6); Lymphocytes % 6.6 %; Mean Corpuscular HGB Conc 32.9 g/dL (31.6-35.5); Mean Corpuscular Volume 100.4 fL (83.0-100.0); Monocytes # 0.1 K/mcL (0.0-1.3); Red Blood Count 2.24 M/mcL (4.19-5.50); Red Cell Distribution Width 26.8 % (11.5-14.5); Segmented Neutrophils % 89.8 %
[2018-11-22 04:32] LABS: Platelet Count 19 K/mcL (140-400)
[2018-11-22 04:53] LABS: Anisocytosis 2+ (Not Present); Microcytosis Present (Not Present)
[2018-11-22 04:54] LABS: Hypochromasia Present (Not Present); Platelet Estimate Marked Decrease (Normal); Poikilocytosis 1+ (Not Present)
[2018-11-22] MEDS: Pantoprazole 40 MG VIAL IVP SCH ×2 (05:51→17:54)
[2018-11-22] MEDS: *HR* OxyCODONE/APAP 5/325 TABLET PO PRN ×3 (07:47→18:01)
[2018-11-22] MEDS ORDERED: Furosemide 40 MG/4 ML VIAL IVP SCH (09:00)
[2018-11-22 09:04] LABS: IFE Reflexed NOT DONE
--- NOTE | 2018-11-22 12:23 | Internal Med Progress Note ---
Hospitalist Progress Note - Encounter Date of Encounter: 11/22/18 Time of Encounter: 09:00 - Subjective Interval History: Pt feels fine, denies SOB, mild cough, however, he need high flow oxygen to maintain SpO2. No fever. - Exam Vitals: Temp Pulse Resp BP Pulse Ox 98.3 F 107 16 133/73 93 11/22/18 11:52 11/22/18 11:52 11/22/18 11:52 11/22/18 11:52 11/22/18 11:52 Exam: Pt is AAO x 3, in NAD HEENT: NC/AT, PERRL Neck: Supple, no JVD, no LAD Lungs: CTA b/l, no wheezes/rhonchi Heart: S1S2, RRR Abd: Soft, nontender, BS present Ext: ROM wnl, no pedal edema Neuro: No focal deficit - Assessment and Plan (1) Lupus Current Visit: Yes Status: Chronic Assessment and Plan: Continue outpatient follow-up (2) MDS (myelodysplastic syndrome) Current Visit: Yes Status: Chronic Assessment and Plan: Oncology is on case. Patient has pancytopenia. Will closely monitor CBC, transfuse as needed. (3) Anemia Current Visit: Yes Status: Chronic Assessment and Plan: Due to MDS, will follow hematology recommendation. (4) CAD (coronary artery disease) Current Visit: Yes Status: Chronic Assessment and Plan: Patient denies chest pain. Continue home medications, hold plavix b/o severe thrombocytopenia (5) PAD (peripheral artery disease) Current Visit: Yes Status: Chronic (6) HAP (hospital-acquired pneumonia) Current Visit: Yes Status: Acute Assessment and Plan: Patient has bilateral infiltrate, need high dose of oxygen. Pulmonology saw patient and had bronchoscope. - Continue current antibiotic treatment. - Continue closely monitor patient - Continue supportive treatment - Chest x-ray suspected pulmonary edema, one dose Lasix was given, will check a BNP. Previous echo shows EF 60% (01/2017), will repeat echocardiogram. Will hold further Lasix at this point because of MAEVE. (7) Acute kidney injury Current Visit: Yes Status: Acute Assessment and Plan: Continue closely monitor renal function. (8) GERD (gastroesophageal reflux disease) Current Visit: Yes Status: Chronic Assessment and Plan: Continue home medications (9) COPD (chronic obstructive pulmonary disease) Current Visit: Yes Status: Chronic Assessment and Plan: No wheezing at this point. Continue home medications (10) Chronic low back pain Current Visit: Yes Status: Chronic Assessment and Plan: Continue home pain medication as needed (11) Acute respiratory failure with hypoxia Current Visit: Yes Status: Acute Assessment and Plan: Most likely due to pneumonia. Continue treat underlying disease. Continue supportive treatment (12) Thrombocytopenia Current Visit: Yes Status: Chronic DVT Prophylaxis: EPCDs, no AC b/o severe thrombocytopenia - Time Spent with Patient Total time spent is greater than 50% in coordination of care (as documented) at patient's floor/unit and/or counseling patient: 25 - 35 minutes Plan of Care Discussed with: patient Internal Medicine: Result - Labs CBC & Chem 7: 11/22/18 03:25 11/22/18 03:25 Labs: Short CBC 11/22/18 Range/Units 03:25 WBC 4.4 (4.3-11.1) K/mcL Hgb 7.4 L (12.9-16.9) g/dL Hct 22.5 L (37.5-50.1) % Plt Count 19 L* (140-400) K/mcL Neutrophils # 4.0 (1.6-8.9) K/mcL BMP 11/22/18 03:25 Sodium 138 Potassium 3.5 Chloride 105 Carbon Dioxide 22 L BUN 43 H Creatinine 1.80 H Glucose 132 H Calcium 7.9 L - ABG Interpretation ABG results: ABG ABG pH 7.35 pH Units (7.32-7.45) 11/19/18 14:06 ABG pCO2 33 mmHg (35-45) L 11/19/18 14:06 ABG pO2 95 mmHg (85-104) 11/19/18 14:06 ABG O2 Saturation 97 % (95-98) 11/19/18 14:06 PT/INR, D-dimer PT 14.6 Seconds (9.4-12.1) H 11/20/18 05:46 - Impressions Impressions Chest CT 11/19/18 11:13 IMPRESSION: Multifocal ground-glass and tree-in-bud nodules throughout both lungs, right greater than left suggesting an atypical pneumonia. Small to moderate right and small left layering pleural effusions. Mild centrilobular emphysema and chronic scarring and bronchiectasis in the lung bases. D/ / 11/19/2018 12:19:38 Sloan Painter MD / [email or web address] Interpreting Provider: Sloan Painter MD Chest X-Ray 11/22/18 06:00 IMPRESSION: Worsening airspace disease (superimposed on background emphysema), favored to reflect edema. Superimposed pneumonia not excluded. Right pleural effusion. 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 transplanted heart: [place] heart Associated angina: without angina Qualified Code(s): I25.10 - Atherosclerotic heart disease of [place] coronary artery without angina pectoris (8) GERD (gastroesophageal reflux disease) Qualifiers: Esophagitis presence: esophagitis presence not specified Qualified Code(s): K21.9 - Gastro-esophageal reflux disease without esophagitis (9) COPD (chronic obstructive pulmonary disease) Qualifiers: COPD type: unspecified COPD Qualified Code(s): J44.9 - Chronic obstructive pulmonary disease, unspecified (10) Chronic low back pain Qualifiers: Back pain laterality: midline Sciatica presence: without sciatica Qualified Code(s): M54.5 - Low back pain; G89.29 - Other chronic pain
[2018-11-22 14:48] LABS: Kappa Qnt Free Light Chains 7.5 mg/dL (0.33-1.94); Lambda Qnt Free Light Chains 5.24 mg/dL (0.57-2.63)
[2018-11-22] MEDS: Budesonide/Formoterol 160/4.5 1 PUFF INH IH SCH (22:57)
[2018-11-22] MEDS ORDERED: *HR* FentaNYL (PF) 100 MCG/2 ML VIAL IVP ONE (23:15)
[2018-11-23] MEDS: Ipratropium/Albuterol Neb 3 ML IH SCH ×4 (04:07→21:22)
[2018-11-23 04:12] LABS: Mean Corpuscular Volume 101.3 fL (83.0-100.0)
[2018-11-23 04:14] LABS: Hematocrit 23.8 % (37.5-50.1); Hemoglobin 7.9 g/dL (12.9-16.9); Immature Platelets 12.2 % (1.1-6.1); Mean Corpuscular HGB Conc 33.2 g/dL (31.6-35.5); Mean Corpuscular Hemoglobin 33.6 pg (28.0-33.3); Red Blood Count 2.35 M/mcL (4.19-5.50); Red Cell Distribution Width 25.7 % (11.5-14.5)
[2018-11-23 04:19] LABS: Platelet Count 19 K/mcL (140-400)
[2018-11-23 04:30] LABS: Calcium 7.9 mg/dL (8.6-10.3); Magnesium 1.7 mg/dL (1.6-2.6); Potassium 2.9 mEq/L (3.5-5.1)
[2018-11-23 04:40] LABS: Anisocytosis 1+ (Not Present); Lymphocytes # 0.4 K/mcL (0.6-4.6); Neutrophils # 4.1 K/mcL (1.6-8.9); Platelet Estimate Decreased (Normal)
[2018-11-23] MEDS ORDERED: Potassium Effervescent 25 MEQ TABLET.EFF PO ONE (04:47)
[2018-11-23] MEDS: Pantoprazole 40 MG VIAL IVP SCH ×2 (06:42→16:40)
[2018-11-23] MEDS: *HR* OxyCODONE/APAP 5/325 TABLET PO PRN ×4 (06:46→23:52)
[2018-11-23] MEDS ORDERED: Potassium Chloride 40 MEQ, Lidocaine 1% 2 ML in D5% in Water 500 ML IVPB ONE (07:59)
--- NOTE | 2018-11-23 08:05 | Oncology Inp Progress Note ---
Date of Encounter: 11/23/18 Time of Encounter: 07:30 (1) Pneumonia Current Visit: Yes Status: Acute Assessment and plan: Clinically responding to antibiotics. Bronchoscopy results without organism thus far. Cultures negative. Continue with broad spectrum coverage with Zosyn/Levaquin. Qualifiers: Pneumonia type: due to unspecified organism Laterality: bilateral Lung l ocation: unspecified part of lung Qualified Code(s): J18.9 - Pneumonia, unspecified organism (2) Thrombocytopenia Current Visit: Yes Status: Chronic Assessment and plan: Acute on chronic thrombocytopenia secondary to MDS and acute infection. Indices stable. Would transfuse for platelet <10,000 unless actively bleeding. (3) MDS (myelodysplastic syndrome) Current Visit: Yes Status: Chronic Assessment and plan: Indices appear stable. Not neutropenic. Anemia is improving/stable. Continue current care. No need for transfusion today. (4) Pain Current Visit: Yes Status: Acute Assessment and plan: Per patient request, we will transition back to Percocet 1-2 tablets every 4 hours when necessary as needed. This has helped him in the past. Oncology: Subj Interval history: He is doing okay this morning. He was on BiPAP earlier this morning. Upon completion of BiPAP, had a coughing episode and cough that thick mucus that was brown/dark colored. He was breathing much easier after this coughing spell. He remains on high flow oxygen currently. He would like to get up and walk around. He also like to shave. He denies any bleeding symptoms epistaxis, hemoptysis, hematemesis, melena or hematochezia. No fever, chill or symptom of new infection. Pain remains problematic. He is hoping we can adjust his pain medi cation a bit more frequently to mimic what he takes at home which is usually Percocet 1-2 tabs to 4-6 hours as needed. - Constitutional General appearance: cooperative, no acute distress, thin - Head Head exam: Present: atraumatic, normal inspection, normocephalic - Eye Eye exam: Present: normal appearance, conjuntiva pink, sclera anicteric - ENT ENT exam: Present: mucous membranes moist, normal oropharynx - Neck Neck exam: Present: full ROM - Respiratory Respiratory exam: Present: decreased breath sounds, rales - Cardiovascular Cardiovascular exam: Present: RRR - GI/Abdominal GI/Abdominal exam: Present: normal bowel sounds, soft - Extremities Exam Extremities exam: Present: normal inspection, pedal edema - Neurological Exam Neurological exam: Present: alert, CN II-XII intact, oriented X3, no focal deficits Oncology: Obj Data - Labs CBC & Chem 7: 11/23/18 03:48 11/23/18 03:48 Consult Discharge Plan - Plan Referrals: Sarah Charles, RETAIL SERVICE REPRESENTATIVE [Primary Care Provider] - Inpatient Charges Provider: Dr. Cookie Eaton Follow up - Inpatient: [id number]
[2018-11-23] MEDS: Piperacillin/Tazobactam 3.375 GM in 0.9 % Sodium Chloride Mini Bag 100 ML IVPB SCH ×4 (08:20→23:30)
[2018-11-23] MEDS: Furosemide 40 MG/4 ML VIAL IVP SCH (08:20)
[2018-11-23] MEDS: Budesonide/Formoterol 160/4.5 1 PUFF INH IH SCH ×2 (10:15→21:22)
--- NOTE | 2018-11-23 12:31 | Internal Med Progress Note ---
Hospitalist Progress Note - Encounter Date of Encounter: 11/23/18 Time of Encounter: 09:00 - Subjective Interval History: Pt feels fine, denies SOB, mild cough, however, he still need high flow oxygen to maintain SpO2. Has nose bleeding b/o high flow O2 but no further active bleeding after switch to mask. No fever. - Exam Vitals: Temp Pulse Resp BP Pulse Ox 98.2 F 105 19 138/72 89 11/23/18 11:11 11/23/18 11:11 11/23/18 11:11 11/23/18 11:11 11/23/18 11:11 Exam: Pt is AAO x 3, in NAD HEENT: NC/AT, PERRL Neck: Supple, no JVD, no LAD Lungs: CTA b/l, no wheezes/rhonchi Heart: S1S2, RRR Abd: Soft, nontender, BS present Ext: ROM wnl, no pedal edema Neuro: No focal deficit - Assessment and Plan (1) Lupus Current Visit: Yes Status: Chronic Assessment and Plan: Continue outpatient follow-up (2) MDS (myelodysplastic syndrome) Current Visit: Yes Status: Chronic Assessment and Plan: Oncology is on case. Patient has pancytopenia. Will closely monitor CBC, transfuse as needed. (3) Anemia Current Visit: Yes Status: Chronic Assessment and Plan: Due to MDS, will follow hematology recommendation. Transfusion as needed. (4) CAD (coronary artery disease) Current Visit: Yes Status: Chronic Assessment and Plan: Patient denies chest pain. Continue home medications, hold plavix b/o severe thrombocytopenia (5) PAD (peripheral artery disease) Current Visit: Yes Status: Chronic (6) HAP (hospital-acquired pneumonia) Current Visit: Yes Status: Acute Assessment and Plan: Patient has bilateral infiltrate, need high dose of oxygen. Pulmonology saw patient and had bronchoscope. V/Q scan done, low probability for PE - Continue current antibiotic treatment. - Continue closely monitor patient - Continue supportive treatment - Chest x-ray suspected pulmonary edema, one dose Lasix was given, BNP is high. Repeat echocardiogram shows LVEF 55-60%, no significan valve dysfunction, moderate PH. Cont lasix at this point as renal function tolerate. (7) Acute kidney injury Current Visit: Yes Status: Acute Assessment and Plan: Continue closely monitor renal function. (8) GERD (gastroesophageal reflux disease) Current Visit: Yes Status: Chronic Assessment and Plan: Continue home medications (9) COPD (chronic obstructive pulmonary disease) Current Visit: Yes Status: Chronic Assessment and Plan: No wheezing at this point. Continue home medications (10) Chronic low back pain Current Visit: Yes Status: Chronic Assessment and Plan: Continue home pain medication as needed (11) Acute respiratory failure with hypoxia Current Visit: Yes Status: Acute Assessment and Plan: Most likely due to pneumonia. But other etiology needs to be r/o. Continue treat pneumonia now. Continue supportive treatment. - Consult pulmonology for further management. (12) Thrombocytopenia Current Visit: Yes Status: Chronic Assessment and Plan: As above. Transfuse if Plt < 10 or active bleeding. DVT Prophylaxis: EPCDs, no AC b/o severe thrombocytopenia - Time Spent with Patient Total time spent is greater than 50% in coordination of care (as documented) at patient's floor/unit and/or counseling patient: Internal Medicine: Result - Labs CBC & Chem 7: 11/23/18 03:48 11/23/18 03:48 Labs: Short CBC 11/23/18 Range/Units 03:48 WBC 4.4 (4.3-11.1) K/mcL Hgb 7.9 L (12.9-16.9) g/dL Hct 23.8 L (37.5-50.1) % Plt Count 19 L* (140-400) K/mcL Neutrophils # 4.1 (1.6-8.9) K/mcL BMP 11/23/18 03:48 Sodium 139 Potassium 2.9 L Chloride 105 Carbon Dioxide 25 BUN 38 H Creatinine 1.67 H Glucose 131 H Calcium 7.9 L - ABG Interpretation ABG results: ABG ABG pH 7.35 pH Units (7.32-7.45) 11/19/18 14:06 ABG pCO2 33 mmHg (35-45) L 11/19/18 14:06 ABG pO2 95 mmHg (85-104) 11/19/18 14:06 ABG O2 Saturation 97 % (95-98) 11/19/18 14:06 PT/INR, D-dimer PT 14.6 Seconds (9.4-12.1) H 11/20/18 05:46 - Impressions Impressions Echocardiogram 11/23/18 12:55 Impressions: LVEF 55-60%. Normal LV chamber size, wall thickness and systolic function. Mild left ventricular diastolic dysfunction. Mildly dilated left atrium. Normal right ventricular structure and function. Mild aortic regurgitation. Mild mitral regurgitation. Mild tricuspid regurgitation. Mild pulmonic regurgitation. Moderate pulmonary hypertension. Left Ventricular Wall Motion: Rest Echo Findings All wall segments showed normal motion. Findings: Study Quality * Technically adequate exam. ECG Findings * Normal sinus rhythm. Left Ventricle * LVEF 55-60%. * Normal LV chamber size, wall thickness and function. * Mild left ventricular diastolic dysfunction. Right Ventricle * Normal right ventricular structure and function. Left Atrium * Mildly dilated left atrium. Right Atrium * Normal right atrial size. Interatrial Septum * Interatrial septum not well evaluated. * No evidence of PFO by color Doppler. Aortic Valve * Trileaflet aortic valve. * Mildly calcified aortic valve leaflets. * Mild aortic regurgitation. * No aortic stenosis. Mitral Valve * Normal mitral valve structure. * No mitral stenosis. * Mild mitral regurgitation. Tricuspid Valve * Normal tricuspid valve structure. * No tricuspid stenosis. * Mild tricuspid regurgitation. * Estimated RVSP is 51 mmHg. * Estimated RA pressure is 8 mmHg. * Moderate pulmonary hypertension. Pulmonic Valve * Pulmonic valve is not well visualized. * No pulmonic stenosis. * Mild pulmonic regurgitation. Aorta * Normally sized aortic root. Pericardium * The pericardium appears normal. * Appearance is consistent with a {type} mitral valve replacement. Function appears {function{. IVC * The IVC is dilated. * > 50% respiratory change - VTE Reasons for not Prescribing Prophylaxis: Refused by patient Consult Discharge Plan - Plan Referrals: Sarah Charles, DIRECTOR LOAN [Primary Care Provider] - 12/03/18 11:00 am ([facility] LOCATION. 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 transplanted heart: [place] heart Associated angina: without angina Qualified Code(s): I25.10 - Atherosclerotic heart disease of [place] coronary artery without angina pectoris (8) GERD (gastroesophageal reflux disease) Qualifiers: Esophagitis presence: esophagitis presence not specified Qualified Code(s): K21.9 - Gastro-esophageal reflux disease without esophagitis (9) COPD (chronic obstructive pulmonary disease) Qualifiers: COPD type: unspecified COPD Qualified Code(s): J44.9 - Chronic obstructive pulmonary disease, unspecified (10) Chronic low back pain Qualifiers: Back pain laterality: midline Sciatica presence: without sciatica Qualified Code(s): M54.5 - Low back pain; G89.29 - Other chronic pain
--- NOTE | 2018-11-23 12:45 | Pulmonology Progress Note ---
Date of Encounter: 11/23/18 Time of Encounter: 12:45 Assessment and Plan (1) Acute respiratory failure with hypoxia Current Visit: Yes Status: Acute This is a 68-year-old gentleman who presented with acute respiratory failure and evidence of pulmonary opacities concerning for pneumonia His chronic immunosuppressed with a history of myelodysplastic syndrome and SLE He is status post bronchoscopy without evidence of alveolar hemorrhage notable mucoid secretions concerning for infectious process I am concerned that worsening hypoxia and worsening pulmonary opacities may be a reflection of non-infectious etiologies such as SLE flare although less likely this is the differential Cultures thus far from bronchoscopy show no growth to date He has minor hemoptysis secondary to increased pulmonary vascular congestion and pancytopenia Recs: -I will follow final cytology from bronchoscopy to rule out PJP -Agree with continuation of broad-spectrum antimicrobials will likely need 7-10 days of treatment for this --Check double-stranded DNA C3 and C4 I had extensive conversation with his primary soaker meat Dr. Logan and we will start empiric prednisone 40 mg daily -Monitor sputum for hemoptysis if any sherrill hemoptysis more than 250 mL at any one time her 500 mL and a 12-24 hour. He moved to the intensive care unit for closer monitoring -Continue supplemental oxygen as needed currently on 15 L high flow but I suspect he can be decreased to some degree if he has to increase his requirements I recommend starting high flow through the [facility] -Agree with diuresis as tolerated by kidney function for the what is likely a component of hydrostatic pulmonary edema -Pulmonary will continue to follow (2) Pneumonia Current Visit: Yes Status: Acute Qualifiers: Pneumonia type: due to unspecified organism Laterality: bilateral Lung location: unspecified part of lung Qualified Code(s): J18.9 - Pneumonia, unspecified organism (3) Pancytopenia Current Visit: Yes Status: Acute (4) Pulmonary vascular congestion Current Visit: Yes Status: Acute (5) MAEVE (acute kidney injury) Current Visit: Yes Status: Acute (6) MDS (myelodysplastic syndrome) Current Visit: Yes Status: Chronic (7) Lupus Current Visit: Yes Status: Chronic Qualifiers: Systemic lupus erythematosus type: unspecified Systemic lupus erythematosus organ involvement: unspecified Qualified Code(s): M32.9 - Systemic lupus erythematosus, unspecified Subjective Principal diagnosis: pneumonia Interval history: Mr. Oreilly says that he feels a little bit better today. But still very short of breath and requiring high flow nasal cannula up to 15 L.. He had a couple episodes where he had some blood-streaked sputum in addition to some minor epistaxis He does complain of severe joint pains in his hands predominantly in the right MIP joints of the first 2 digits No fevers or chills Objective PUL Vital signs: Last Vital Signs Temp 98.2 F 11/23/18 11:11 Pulse 105 11/23/18 11:11 Resp 19 11/23/18 11:11 BP 138/72 11/23/18 11:11 Pulse Ox 89 11/23/18 11:11 General appearance: no acute distress Eyes: nonicteric Auscultation: bilateral: rhonchi Cardiovascular: regular rate and rhythm Gastrointestinal: normoactive bowel sounds Integumentary: normal Extremities: no edema, no clubbing, pink and warm Musculoskeletal: joint inflammation normal mental status, non-focal exam mood appropriate Results - Laboratory Findings CBC and BMP: 11/23/18 03:48 11/23/18 03:48 ABG ABG pH 7.35 pH Units (7.32-7.45) 11/19/18 14:06 ABG pCO2 33 mmHg (35-45) L 11/19/18 14:06 ABG pO2 95 mmHg (85-104) 11/19/18 14:06 ABG O2 Saturation 97 % (95-98) 11/19/18 14:06 PT/INR, D-dimer PT 14.6 Seconds (9.4-12.1) H 11/20/18 05:46 Abnormal lab findings: Abnormal lab results RBC 2.35 M/mcL (4.19-5.50) L 11/23/18 03:48 Hgb 7.9 g/dL (12.9-16.9) L 11/23/18 03:48 Hct 23.8 % (37.5-50.1) L 11/23/18 03:48 MCV 101.3 fL (83.0-100.0) H 11/23/18 03:48 MCH 33.6 pg (28.0-33.3) H 11/23/18 03:48 RDW 25.7 % (11.5-14.5) H 11/23/18 03:48 Plt Count 19 K/mcL (140-400) L* 11/23/18 03:48 Lymphocytes # 0.4 K/mcL (0.6-4.6) L 11/23/18 03:48 Platelet Estimate Decreased (Normal) L 11/23/18 03:48 Immature Plt Fraction 12.2 % (1.1-6.1) H 11/23/18 03:48 Polychromasia 1+ (Not Present) A 11/19/18 11:03 Hypochromasia Present (Not Present) A 11/22/18 03:25 Poikilocytosis 1+ (Not Present) A 11/22/18 03:25 Anisocytosis 1+ (Not Present) A 11/23/18 03:48 Microcytosis Present (Not Present) A 11/22/18 03:25 PT 14.6 Seconds (9.4-12.1) H 11/20/18 05:46 Fibrinogen 921 mg/dL (169-393) H* 11/20/18 14:07 ABG pCO2 33 mmHg (35-45) L 11/19/18 14:06 ABG HCO3 18 mEq/L (21-27) L 11/19/18 14:06 ABG Total CO2 19 mEq/L (20-26) L 11/19/18 14:06 ABG Base Excess -7 mEq/L (-2 to 3) L 11/19/18 14:06 Potassium 2.9 mEq/L (3.5-5.1) L 11/23/18 03:48 BUN 38 mg/dL (8-23) H 11/23/18 03:48 Creatinine 1.67 mg/dL (0.70-1.30) H 11/23/18 03:48 Est GFR ( Amer) 50 (> 60) L 11/23/18 03:48 Est GFR (Non-Af Amer) 41 (> 60) L 11/23/18 03:48 Glucose 131 mg/dL (70-105) H 11/23/18 03:48 POC Glucose 124 mg/dL (70-99) H 11/19/18 15:50 Calcium 7.9 mg/dL (8.6-10.3) L 11/23/18 03:48 Iron 38 mcg/dL (65-175) L 11/20/18 05:46 % Saturation 18 % (20-55) L 11/20/18 05:46 Transferrin 149 mg/dL (203-362) L 11/20/18 05:46 Ferritin 1132 ng/mL (20-250) H 11/20/18 05:46 B-Natriuretic Peptide 619 pg/mL (Less than 100) H 11/22/18 03:25 Serum Total Protein 6.0 g/dL (6.4-8.9) L 11/19/18 11:03 Total Protein (PEP) 5.30 g/dL (6.00-8.30) L 11/20/18 05:46 Albumin 2.6 g/dL (3.5-5.7) L 11/19/18 11:03 Albumin (PEP) 1.80 g/dL (3.75-5.01) L 11/20/18 05:46 Albumin/Globulin Ratio 0.8 (1.1-2.2) L 11/19/18 11:03 Zlwgr-1-Wxwjiyael 0.80 g/dL (0.19-0.46) H 11/20/18 05:46 Boqeg-3-Tbfdqmewd 1.18 g/dL (0.48-1.05) H 11/20/18 05:46 Urine Protein >=300 mg/dL (Neg-Trace) H 11/19/18 16:44 Urine Glucose (UA) 100 mg/dL (Normal) H 11/19/18 16:44 Urine Blood Small (Negative) H 11/19/18 16:44 Urine Microscopic RBC 5-15 per hpf (0-3) H 11/19/18 16:44 Urine Microscopic WBC 3-5 per hpf (0-3) H 11/19/18 16:44 Ur Squamous Epith Cells Many per lpf (None-Few) H 11/19/18 16:44 Fluid Appearance Cloudy (Clear) A 11/20/18 13:37 Free [place] LC, Quant 7.50 mg/dL (0.33-1.94) H 11/20/18 05:46 Free [place] LC, Quant 5.24 mg/dL (0.57-2.63) H 11/20/18 05:46 - Microbiology Findings Microbiology Findings: Microbiology, Last 48 Hours 11/20/18 13:25 Respiratory Culture - Final Right Lower Lobe Lung 11/20/18 13:37 Respiratory Culture - Final Right Middle Lobe Lung 11/20/18 13:38 Acid Fast Stain - Final Right Middle Lobe Lung 11/20/18 13:25 Acid Fast Stain - Final Right Lower Lobe Lung - Diagnostic Findings Chest x-ray: report reviewed, image reviewed CT scan - chest: report reviewed, image reviewed - Clinical Findings Intake & Output: Intake & Output 11/22/18 11/23/18 11/23/18 23:59 07:59 15:59 Intake Total 100 / 100 100 / 100 Output Total 625 / 625 550 / 550 150 / 150 Balance -525 / -525 -450 / -450 -150 / -150 Weight 73.2 kg - VTE Reasons for not Prescribing Prophylaxis: Refused by patient Consult Discharge Plan - Plan Referrals: Sarah Charles, CHEMICAL LABORATORY TESTER [Primary Care Provider] - 12/03/18 11:00 am ([facility] LOCATION. SHOW UP 15 MINS EARLY PER THE OFFICE.)
[2018-11-23] MEDS: predniSONE 20 MG TABLET PO SCH (16:39)
[2018-11-23] MEDS: Levofloxacin 750 MG/150 ML 750 MG/150 ML BAG IVPB SCH (18:00)
[2018-11-24] MEDS: Ipratropium/Albuterol Neb 3 ML IH SCH ×4 (04:06→22:21)
[2018-11-24 04:16] LABS: Immature Granulocytes % 1.9 % (0-4)
[2018-11-24 04:18] LABS: Hematocrit 21.7 % (37.5-50.1); Hemoglobin 7.1 g/dL (12.9-16.9); Immature Platelets 11.6 % (1.1-6.1); Lymphocytes # 0.1 K/mcL (0.6-4.6); Lymphocytes % 3.2 %; Mean Corpuscular HGB Conc 32.7 g/dL (31.6-35.5); Mean Corpuscular Volume 100.9 fL (83.0-100.0); Monocytes # 0.1 K/mcL (0.0-1.3); Monocytes % 1.3 %; Neutrophils # 3.5 K/mcL (1.6-8.9); Red Blood Count 2.15 M/mcL (4.19-5.50); Red Cell Distribution Width 25.1 % (11.5-14.5); Segmented Neutrophils % 93.6 %
[2018-11-24 04:33] LABS: Calcium 7.8 mg/dL (8.6-10.3); Potassium 3.4 mEq/L (3.5-5.1)
[2018-11-24 04:52] LABS: Platelet Count 23 K/mcL (140-400)
[2018-11-24 04:53] LABS: Anisocytosis 1+ (Not Present); Platelet Estimate Marked Decrease (Normal)
[2018-11-24] MEDS: Pantoprazole 40 MG VIAL IVP SCH ×2 (06:09→18:06)
[2018-11-24 06:38] LABS: Influenza A PCR Body Fluid NOT DETECTED; Influenza B PCR Body Fluid NOT DETECTED; RVP Body Fluid Source BAL RLL
[2018-11-24 06:38] LABS: Influenza A PCR Body Fluid NOT DETECTED; Influenza B PCR Body Fluid NOT DETECTED; RVP Body Fluid Source BAL RML
--- NOTE | 2018-11-24 07:31 | Pulmonology Progress Note ---
Date of Encounter: 11/24/18 Time of Encounter: 07:31 Assessment and Plan (1) Acute respiratory failure with hypoxia Current Visit: Yes Status: Acute This is a 68-year-old gentleman who presented with acute respiratory failure and evidence of pulmonary opacities concerning for pneumonia His chronic immunosuppressed with a history of myelodysplastic syndrome and SLE He is status post bronchoscopy without evidence of alveolar hemorrhage notable mucoid secretions concerning for infectious process Overall I see improvement in the clinical trajectory over the last 24 hours. -Recs: -Culture from bronchoscopy this far remains negative I suspect he can be safely D escalated to [id number] therapy and discontinuation of the respiratory fluoroquinolone -Anticipate significant improvement in oxygenation once further decrease in VQ mismatching from atelectasis is accounted for by getting him out of bed to chair encouraging incentive spirometry and PTOT consultation -I think the possibility of the SLE flare is much less likely he remains on oral glucocorticoids today and I would probably continue this for the next 5 days but if at the end of this his made significant improvements likely could stop he should follow up with his outpatient bottoming room inspector for further evaluation of SLE -From a pulmonary perspective he would continue to benefit from diuresis as tolerated by renal function Pulmonary will sign off at this time given improvement in oxygenation please call with any questionsor with concerns of clinical deterioration (2) Pneumonia Current Visit: Yes Status: Acute Qualifiers: Pneumonia type: due to unspecified organism Laterality: bilateral Lung location: unspecified part of lung Qualified Code(s): J18.9 - Pneumonia, unspecified organism (3) Pancytopenia Current Visit: Yes Status: Acute (4) Pulmonary vascular congestion Current Visit: Yes Status: Acute (5) MAEVE (acute kidney injury) Current Visit: Yes Status: Acute (6) MDS (myelodysplastic syndrome) Current Visit: Yes Status: Chronic (7) Lupus Current Visit: Yes Status: Chronic Qualifiers: Systemic lupus erythematosus type: unspecified Systemic lupus erythematosus organ involvement: unspecified Qualified Code(s): M32.9 - Systemic lupus erythematosus, unspecified Subjective Principal diagnosis: pneumonia Interval history: No acute events overnight no sherrill hemoptysis noted oxygen requirements have decreased now is on 8 L through oximetry mask with saturation the low 90s he denies any new complaints type pains about the same however Objective PUL Vital signs: Last Vital Signs Temp 98.3 F 11/24/18 03:31 Pulse 87 11/24/18 03:31 Resp 18 11/24/18 04:06 BP 131/74 11/24/18 03:31 Pulse Ox 94 11/24/18 04:06 General appearance: no acute distress Eyes: nonicteric ENT: oropharynx moist Effort: normal Auscultation: bilateral: wheezes Cardiovascular: regular rate and rhythm Gastrointestinal: normoactive bowel sounds, soft, non-tender Integumentary: normal Extremities: no edema, no clubbing Musculoskeletal: joint tenderness normal mental status Results - Laboratory Findings CBC and BMP: 11/24/18 03:43 11/24/18 03:43 ABG ABG pH 7.35 pH Units (7.32-7.45) 11/19/18 14:06 ABG pCO2 33 mmHg (35-45) L 11/19/18 14:06 ABG pO2 95 mmHg (85-104) 11/19/18 14:06 ABG O2 Saturation 97 % (95-98) 11/19/18 14:06 PT/INR, D-dimer PT 14.6 Seconds (9.4-12.1) H 11/20/18 05:46 Abnormal lab findings: Abnormal lab results WBC 3.7 K/mcL (4.3-11.1) L 11/24/18 03:43 RBC 2.15 M/mcL (4.19-5.50) L 11/24/18 03:43 Hgb 7.1 g/dL (12.9-16.9) L 11/24/18 03:43 Hct 21.7 % (37.5-50.1) L 11/24/18 03:43 MCV 100.9 fL (83.0-100.0) H 11/24/18 03:43 RDW 25.1 % (11.5-14.5) H 11/24/18 03:43 Plt Count 23 K/mcL (140-400) L* 11/24/18 03:43 Lymphocytes # 0.1 K/mcL (0.6-4.6) L 11/24/18 03:43 Platelet Estimate Marked Decrease (Normal) L 11/24/18 03:43 Immature Plt Fraction 11.6 % (1.1-6.1) H 11/24/18 03:43 Polychromasia 1+ (Not Present) A 11/19/18 11:03 Hypochromasia Present (Not Present) A 11/22/18 03:25 Poikilocytosis 1+ (Not Present) A 11/22/18 03:25 Anisocytosis 1+ (Not Present) A 11/24/18 03:43 Microcytosis Present (Not Present) A 11/22/18 03:25 PT 14.6 Seconds (9.4-12.1) H 11/20/18 05:46 Fibrinogen 921 mg/dL (169-393) H* 11/20/18 14:07 ABG pCO2 33 mmHg (35-45) L 11/19/18 14:06 ABG HCO3 18 mEq/L (21-27) L 11/19/18 14:06 ABG Total CO2 19 mEq/L (20-26) L 11/19/18 14:06 ABG Base Excess -7 mEq/L (-2 to 3) L 11/19/18 14:06 Potassium 3.4 mEq/L (3.5-5.1) L 11/24/18 03:43 BUN 37 mg/dL (8-23) H 11/24/18 03:43 Creatinine 1.53 mg/dL (0.70-1.30) H 11/24/18 03:43 Est GFR ( Amer) 55 (> 60) L 11/24/18 03:43 Est GFR (Non-Af Amer) 46 (> 60) L 11/24/18 03:43 Glucose 225 mg/dL (70-105) H 11/24/18 03:43 POC Glucose 124 mg/dL (70-99) H 11/19/18 15:50 Calculated Osmolality 304 (280-300) H 11/24/18 03:43 Calcium 7.8 mg/dL (8.6-10.3) L 11/24/18 03:43 Iron 38 mcg/dL (65-175) L 11/20/18 05:46 % Saturation 18 % (20-55) L 11/20/18 05:46 Transferrin 149 mg/dL (203-362) L 11/20/18 05:46 Ferritin 1132 ng/mL (20-250) H 11/20/18 05:46 B-Natriuretic Peptide 619 pg/mL (Less than 100) H 11/22/18 03:25 Serum Total Protein 6.0 g/dL (6.4-8.9) L 11/19/18 11:03 Total Protein (PEP) 5.30 g/dL (6.00-8.30) L 11/20/18 05:46 Albumin 2.6 g/dL (3.5-5.7) L 11/19/18 11:03 Albumin (PEP) 1.80 g/dL (3.75-5.01) L 11/20/18 05:46 Albumin/Globulin Ratio 0.8 (1.1-2.2) L 11/19/18 11:03 Jeflm-1-Jlozayemj 0.80 g/dL (0.19-0.46) H 11/20/18 05:46 Dctgb-4-Rcdwlssnz 1.18 g/dL (0.48-1.05) H 11/20/18 05:46 Urine Protein >=300 mg/dL (Neg-Trace) H 11/19/18 16:44 Urine Glucose (UA) 100 mg/dL (Normal) H 11/19/18 16:44 Urine Blood Small (Negative) H 11/19/18 16:44 Urine Microscopic RBC 5-15 per hpf (0-3) H 11/19/18 16:44 Urine Microscopic WBC 3-5 per hpf (0-3) H 11/19/18 16:44 Ur Squamous Epith Cells Many per lpf (None-Few) H 11/19/18 16:44 Fluid Appearance Cloudy (Clear) A 11/20/18 13:37 Free [place] LC, Quant 7.50 mg/dL (0.33-1.94) H 11/20/18 05:46 Free [place] LC, Quant 5.24 mg/dL (0.57-2.63) H 11/20/18 05:46 - Microbiology Findings Microbiology Findings: Microbiology, Last 48 Hours 11/20/18 13:25 Legionella Culture - Final Right Lower Lobe Lung 11/20/18 13:37 Legionella Culture - Final Right Middle Lobe Lung 11/20/18 13:25 Respiratory Culture - Final Right Lower Lobe Lung 11/20/18 13:37 Respiratory Culture - Final Right Middle Lobe Lung 11/20/18 13:38 Acid Fast Stain - Final Right Middle Lobe Lung 11/20/18 13:25 Acid Fast Stain - Final Right Lower Lobe Lung - Clinical Findings Intake & Output: Intake & Output 11/23/18 11/23/18 11/24/18 15:59 23:59 07:59 Intake Total 220 / 220 340 / 340 Output Total 1200 / 1200 100 / 100 Balance -980 / -980 240 / 240 Weight 73.5 kg - VTE Reasons for not Prescribing Prophylaxis: Refused by patient Consult Discharge Plan - Plan Referrals: Sarah Charles, SALES AND MARKETING INTERN [Primary Care Provider] - 12/03/18 11:00 am ([facility] LOCATION. SHOW UP 15 MINS EARLY PER THE OFFICE.)
[2018-11-24] MEDS: Piperacillin/Tazobactam 3.375 GM in 0.9 % Sodium Chloride Mini Bag 100 ML IVPB SCH ×3 (08:25→23:31)
[2018-11-24] MEDS: predniSONE 20 MG TABLET PO SCH (08:25)
[2018-11-24] MEDS: Furosemide 40 MG/4 ML VIAL IVP SCH (08:25)
[2018-11-24] MEDS: *HR* OxyCODONE/APAP 5/325 TABLET PO PRN ×5 (08:30→23:31)
[2018-11-24 10:02] LABS: RSV PCR Body Fluid NOT DETECTED
[2018-11-24 10:03] LABS: RSV PCR Body Fluid NOT DETECTED
[2018-11-24] MEDS: Budesonide/Formoterol 160/4.5 1 PUFF INH IH SCH ×2 (10:23→22:21)
[2018-11-24 11:05] LABS: Complement C3 150 mg/dL (87-200)
--- NOTE | 2018-11-24 11:22 | Internal Med Progress Note ---
Hospitalist Progress Note - Encounter Date of Encounter: 11/24/18 Time of Encounter: 09:00 - Subjective Interval History: Pt feels fine, denies SOB, mild cough, decreased oxygen requirement to 6L/Min. No fever. - Exam Vitals: Temp Pulse Resp BP Pulse Ox 97.3 F L 97 18 151/83 93 11/24/18 07:40 11/24/18 07:40 11/24/18 07:40 11/24/18 07:40 11/24/18 07:40 Exam: Pt is AAO x 3, in NAD HEENT: NC/AT, PERRL Neck: Supple, no JVD, no LAD Lungs: CTA b/l, no wheezes/rhonchi Heart: S1S2, RRR Abd: Soft, nontender, BS present Ext: ROM wnl, no pedal edema Neuro: No focal deficit - Assessment and Plan (1) Lupus Current Visit: Yes Status: Chronic Assessment and Plan: Continue outpatient follow-up. Predinisone 40mg po daily added per pulmo recommendation. (2) MDS (myelodysplastic syndrome) Current Visit: Yes Status: Chronic Assessment and Plan: Oncology is on case. Patient has pancytopenia. Will closely monitor CBC, transfuse as needed. (3) Anemia Current Visit: Yes Status: Chronic Assessment and Plan: Due to MDS, will follow hematology recommendation. Transfusion as needed. (4) CAD (coronary artery disease) Current Visit: Yes Status: Chronic Assessment and Plan: Patient denies chest pain. Continue home medications, hold plavix b/o severe thrombocytopenia (5) PAD (peripheral artery disease) Current Visit: Yes Status: Chronic (6) HAP (hospital-acquired pneumonia) Current Visit: Yes Status: Acute Assessment and Plan: Patient has bilateral infiltrate, need high dose of oxygen. Pulmonology saw fred vargas and had bronchoscope. V/Q scan done, low probability for PE - Continue closely monitor patient - Continue supportive treatment - Chest x-ray suspected pulmonary edema, one dose Lasix was given, BNP is high. Repeat echocardiogram shows LVEF 55-60%, no significan valve dysfunction, moderate PH. Cont lasix at this point as renal function tolerate. - Pulmonology consult appreciated, will deescalate antibiotic to Zosyn only, DC Levaquin. (7) Acute kidney injury Current Visit: Yes Status: Acute Assessment and Plan: Continue closely monitor renal function. Slightly improved. (8) GERD (gastroesophageal reflux disease) Current Visit: Yes Status: Chronic Assessment and Plan: Continue home medications (9) COPD (chronic obstructive pulmonary disease) Current Visit: Yes Status: Chronic Assessment and Plan: No wheezing at this point. Continue home medications (10) Chronic low back pain Current Visit: Yes Status: Chronic Assessment and Plan: Continue home pain medication as needed (11) Acute respiratory failure with hypoxia Current Visit: Yes Status: Acute Assessment and Plan: Most likely due to pneumonia. But other etiology needs to be r/o. Continue treat pneumonia now. Continue supportive treatment. - Pulmonology consult saw patient. Recommendation appreciated (12) Thrombocytopenia Current Visit: Yes Status: Chronic Assessment and Plan: As above. Transfuse if Plt < 10 or active bleeding. DVT Prophylaxis: EPCDs, no AC b/o severe thrombocytopenia - Time Spent with Patient Total time spent is greater than 50% in coordination of care (as documented) at patient's floor/unit and/or counseling patient: 30 minutes 25 - 35 minutes Plan of Care Discussed with: patient Internal Medicine: Result - Labs CBC & Chem 7: 11/24/18 03:43 11/24/18 03:43 Labs: Short CBC 11/24/18 Range/Units 03:43 WBC 3.7 L (4.3-11.1) K/mcL Hgb 7.1 L (12.9-16.9) g/dL Hct 21.7 L (37.5-50.1) % Plt Count 23 L* (140-400) K/mcL Neutrophils # 3.5 (1.6-8.9) K/mcL BMP 11/24/18 03:43 Sodium 139 Potassium 3.4 L Chloride 104 Carbon Dioxide 26 BUN 37 H Creatinine 1.53 H Glucose 225 H Calcium 7.8 L - ABG Interpretation ABG results: ABG ABG pH 7.35 pH Units (7.32-7.45) 11/19/18 14:06 ABG pCO2 33 mmHg (35-45) L 11/19/18 14:06 ABG pO2 95 mmHg (85-104) 11/19/18 14:06 ABG O2 Saturation 97 % (95-98) 11/19/18 14:06 PT/INR, D-dimer PT 14.6 Seconds (9.4-12.1) H 11/20/18 05:46 - VTE Reasons for not Prescribing Prophylaxis: Refused by patient Consult Discharge Plan - Plan Referrals: Sarah Charles, [employer] [Primary Care Provider] - 12/03/18 11:00 am ([facility] LOCATION. 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 transplanted heart: [place] heart Associated angina: without a ngina Qualified Code(s): I25.10 - Atherosclerotic heart disease of [place] coronary artery without angina pectoris (8) GERD (gastroesophageal reflux disease) Qualifiers: Esophagitis presence: esophagitis presence not specified Qualified Code(s): K21.9 - Gastro-esophageal reflux disease without esophagitis (9) COPD (chronic obstructive pulmonary disease) Qualifiers: COPD type: unspecified COPD Qualified Code(s): J44.9 - Chronic obstructive pulmonary disease, unspecified (10) Chronic low back pain Qualifiers: Back pain laterality: midline Sciatica presence: without sciatica Qualified Code(s): M54.5 - Low back pain; G89.29 - Other chronic pain
[2018-11-24] MEDS: Nicotine 21 MG PATCH.TD24 TD SCH (13:54)
--- NOTE | 2018-11-24 14:00 | Oncology Inp Progress Note ---
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 He is not a transplant candidate after second opinion at [facility]. Current treatment includes Decitabine initiated 04/14/18 which was decreased to 4 days out of 5 cycle #7 and Aranesp 500 mcg q 3 week initiated 04/27/18. He is s/p cycle #8 Decitabine on 10/27/2018. He has evidence of cytopenias below baseline on admission, may be secondary to sepsis/infectious process/MAEVE in presence of sepsis Chest CT indicated bilateral atypical pneumonia and small bilateral pleural effusions Blood cultures pending WBC count and ANC normal Nutritional stores adequate Eugenia negative, LDH normal Plan: Platelet transfusion for plt count <10 or if s/s bleeding present, transfuse PRBC for hgb <7 Continue supportive management from oncology standpoint Following resolution of his acute illness and rehabilitation will plan to resume treatment on outpatient basis He is planned to d/c to short term rehab center, will likely arrange for appointments with transfusional support during this time and resume treatment once cleared from rehabilitation (2) Pneumonia Current Visit: Yes Status: Acute Assessment and plan: CT chest revealed bilateral atypical pneumonia and small bilateral pleural effusions. V/Q scan was low probability for pulmonary embolism. S/P Bronchoscopy with cultures negative thus far He has been de-escalated to Zosyn Management per hospitalist team Qualifiers: Pneumonia type: due to unspecified organism Laterality: bilateral Lung location: unspecified part of lung Qualified Code(s): J18.9 - Pneumonia, unspecified organism Oncology: Subj Interval history: Mr. Oreilly is feeling well today. He is sitting in chair. Finished lunch, appetite is very good. Pain better controlled with percocet. He is on 5L nasal cannula. - Constitutional General appearance: cooperative, no acute distress, thin, no febrile - Head Head exam: Present: atraumatic - ENT ENT exam: Present: mucous membranes moist, normal oropharynx - Respiratory Respiratory exam: Present: decreased breath sounds. Absent: respiratory distress - Cardiovascular Cardiovascular exam: Present: RRR, +S1, +S2 - GI/Abdominal GI/Abdominal exam: Present: normal bowel sounds, soft. Absent: guarding, rebound, tenderness - Extremities Exam Extremities exam: Present: pedal edema. Absent: calf tenderness - Neurological Exam Neurological exam: Present: alert, oriented X3, no focal deficits, strengths equal and symetr throughout - Skin Skin exam: Present: dry, intact, normal color, warm Oncology: Obj Data - Labs CBC & Chem 7: 11/24/18 03:43 11/24/18 03:43 Consult Discharge Plan - Plan Referrals: Sarah Charles, SLURRY CONTROL TENDER [Primary Care Provider] - 12/03/18 11:00 am ([facility] LOCATION. SHOW UP 15 MINS EARLY PER THE OFFICE.) Inpatient Charges Provider: Dr. Cookie Eaton <Vinod Eaton - Last Filed: 11/24/18 21:45> Date of Encounter: 11/24/18 (1) Pneumonia Current Visit: Yes Status: Acute Qualifiers: Pneumonia type: due to unspecified organism Laterality: bilateral Lung location: unspecified part of lung Qualified Code(s): J18.9 - Pneumonia, unspecified organism (2) Thrombocytopenia Current Visit: Yes Status: Chronic (3) MDS (myelodysplastic syndrome) Current Visit: Yes Status: Chronic (4) Pain Current Visit: Yes Status: Acute Oncology: Obj Data - Labs CBC & Chem 7: 11/24/18 03:43 11/24/18 03:43 Inpatient Charges Provider: Dr. Cookie Eaton Follow up - Inpatient: [id number] - Attending Attestation I examined this patient and my medical decision-making was reviewed with the Advanced Practice Nurse. I agree with the documented findings, disposition and treatment plan as described except to the extent set forth below. Exam reveals bilateral diminished breath sounds as well as coarse breath sounds. Clinically, he appears to be improving. He is breathing more complete. His oxygenation appears to be stabilizing if not improving. He was ambulatory today as well. No other new aches or pains. No fever or chills. I recommend continuation of current care. Discharge planning is in place. We will delay further therapy upon completion of his rehabilitation and I will arrange for weekly follow-up and transfusion support in the interim.
[2018-11-25 04:02] LABS: Hematocrit 21.4 % (37.5-50.1); Mean Corpuscular HGB Conc 32.7 g/dL (31.6-35.5); Mean Corpuscular Hemoglobin 33.7 pg (28.0-33.3); Mean Corpuscular Volume 102.9 fL (83.0-100.0); Red Blood Count 2.08 M/mcL (4.19-5.50); Red Cell Distribution Width 24.7 % (11.5-14.5)
[2018-11-25 04:06] LABS: Platelet Count 26 K/mcL (140-400)
[2018-11-25 04:20] LABS: Calcium 7.5 mg/dL (8.6-10.3); Potassium 3.5 mEq/L (3.5-5.1)
[2018-11-25] MEDS: Ipratropium/Albuterol Neb 3 ML IH SCH ×4 (04:34→22:53)
[2018-11-25 04:35] LABS: Anisocytosis 2+ (Not Present); Lymphocytes # 0.3 K/mcL (0.6-4.6); Neutrophils # 3.8 K/mcL (1.6-8.9)
[2018-11-25 04:36] LABS: Microcytosis Present (Not Present); Platelet Estimate Marked Decrease (Normal)
[2018-11-25] MEDS: Furosemide 40 MG/4 ML VIAL IVP SCH (07:45)
[2018-11-25] MEDS: *HR* OxyCODONE/APAP 5/325 TABLET PO PRN ×4 (07:45→19:54)
[2018-11-25] MEDS: predniSONE 20 MG TABLET PO SCH (07:46)
[2018-11-25] MEDS: Nicotine 21 MG PATCH.TD24 TD SCH (07:46)
[2018-11-25] MEDS: Pantoprazole 40 MG VIAL IVP SCH (07:52)
[2018-11-25] MEDS: Piperacillin/Tazobactam 3.375 GM in 0.9 % Sodium Chloride Mini Bag 100 ML IVPB SCH (07:52)
[2018-11-25] MEDS: Budesonide/Formoterol 160/4.5 1 PUFF INH IH SCH ×2 (10:30→22:53)
--- NOTE | 2018-11-25 15:29 | Internal Med Progress Note ---
Hospitalist Progress Note - Encounter Date of Encounter: 11/25/18 Time of Encounter: 09:00 - Subjective Interval History: Pt feels better, denies SOB, mild cough, decreased oxygen requirement to 4L/Min with SpO2 92%. No fever. No active bleeding. - Exam Vitals: Temp Pulse Resp BP Pulse Ox 98.8 F 95 18 158/78 94 11/25/18 11:45 11/25/18 11:45 11/25/18 11:45 11/25/18 11:45 11/25/18 11:45 Exam: Pt is AAO x 3, in NAD HEENT: NC/AT, PERRL Neck: Supple, no JVD, no LAD Lungs: CTA b/l, no wheezes/rhonchi Heart: S1S2, RRR Abd: Soft, nontender, BS present Ext: ROM wnl, no pedal edema Neuro: No focal deficit - Assessment and Plan (1) Lupus Current Visit: Yes Status: Chronic Assessment and Plan: Continue outpatient follow-up. Predinisone 40mg po daily added per pulmo recommendation to finish a 5 day course. (2) MDS (myelodysplastic syndrome) Current Visit: Yes Status: Chronic Assessment and Plan: Oncology is on case. Patient has pancytopenia. Will closely monitor CBC, transfuse as needed. (3) Anemia Current Visit: Yes Status: Chronic Assessment and Plan: Due to MDS, will follow hematology recommendation. Transfusion as needed. (4) CAD (coronary artery disease) Current Visit: Yes Status: Chronic Assessment and Plan: Patient denies chest pain. Continue home medications, hold plavix b/o severe thrombocytopenia (5) PAD (peripheral artery disease) Current Visit: Yes Status: Chronic (6) HAP (hospital-acquired pneumonia) Current Visit: Yes Status: Acute Assessment and Plan: Patient has bilateral infiltrate, need high dose of oxygen. Pulmonology saw patient and had bronchoscope. V/Q scan done, low probability for PE - Continue closely monitor patient - Continue supportive treatment - Chest x-ray suspected pulmonary edema, one dose Lasix was given, BNP is high. Repeat echocardiogram shows LVEF 55-60%, no significan valve dysfunction, moderate PH. Cont lasix at this point as renal function tolerate. - Pulmonology consult appreciated, will deescalate antibiotic to Augmentin po from today. (7) Acute kidney injury Current Visit: Yes Status: Acute Assessment and Plan: Continue closely monitor renal function. Slightly improved. (8) GERD (gastroesophageal reflux disease) Current Visit: Yes Status: Chronic Assessment and Plan: Continue home medications (9) COPD (chronic obstructive pulmonary disease) Current Visit: Yes Status: Chronic Assessment and Plan: No wheezing at this point. Continue home medications (10) Chronic low back pain Current Visit: Yes Status: Chronic Assessment and Plan: Continue home pain medication as needed (11) Acute respiratory failure with hypoxia Current Visit: Yes Status: Acute Assessment and Plan: Most likely due to pneumonia. But other etiology needs to be r/o. Continue treat pneumonia now. Continue supportive treatment. - Pulmonology consult saw patient. Recommendation appreciated (12) Thrombocytopenia Current Visit: Yes Status: Chronic Assessment and Plan: As above. Transfuse if Plt < 10 or active bleeding. DVT Prophylaxis: EPCDs, no AC b/o severe thrombocytopenia - Time Spent with Patient Total time spent is greater than 50% in coordination of care (as documented) at patient's floor/unit and/or counseling patient: 30 minutes 25 - 35 minutes Internal Medicine: Result - Labs CBC & Chem 7: 11/25/18 03:03 11/25/18 03:03 Labs: Short CBC 11/25/18 Range/Units 03:03 WBC 4.1 L (4.3-11.1) K/mcL Hgb 7.0 L (12.9-16.9) g/dL Hct 21.4 L (37.5-50.1) % Plt Count 26 L* (140-400) K/mcL Neutrophils # 3.8 (1.6-8.9) K/mcL BMP 11/25/18 03:03 Sodium 138 Potassium 3.5 Chloride 105 Carbon Dioxide 25 BUN 41 H Creatinine 1.43 H Glucose 126 H Calcium 7.5 L - ABG Interpretation ABG results: ABG ABG pH 7.35 pH Units (7.32-7.45) 11/19/18 14:06 ABG pCO2 33 mmHg (35-45) L 11/19/18 14:06 ABG pO2 95 mmHg (85-104) 11/19/18 14:06 ABG O2 Saturation 97 % (95-98) 11/19/18 14:06 PT/INR, D-dimer PT 14.6 Seconds (9.4-12.1) H 11/20/18 05:46 - VTE Reasons for not Prescribing Prophylaxis: Refused by patient Consult Discharge Plan - Plan Referrals: Sarah Charles, FARM TRACTOR MECHANIC [Primary Care Provider] - 12/03/18 11:00 am ([facility] LOCATION. 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 transplanted heart: [place] heart Associated angina: without angina Qualified Code(s): I25.10 - Atherosclerotic heart disease of [place] artery without angina pectoris (8) GERD (gastroesophageal reflux disease) Qualifiers: Esophagitis presence: esophagitis presence not specified Qualified Code(s): K21.9 - Gastro-esophageal reflux disease without esophagitis (9) COPD (chronic obstructive pulmonary disease) Qualifiers: COPD type: unspecified COPD Qualified Code(s): J44.9 - Chronic obstructive pulmonary disease, unspecified (10) Chronic low back pain Qualifiers: Back pain laterality: midline Sciatica presence: without sciatica Qualified Code(s): M54.5 - Low back pain; G89.29 - Other chronic pain
[2018-11-26] MEDS: Ipratropium/Albuterol Neb 3 ML IH SCH ×4 (04:02→22:21)
[2018-11-26] MEDS: *HR* OxyCODONE/APAP 5/325 TABLET PO PRN ×6 (04:13→20:03)
[2018-11-26 05:06] LABS: Red Blood Count 2.28 M/mcL (4.19-5.50); Segmented Neutrophils % 84.7 %
[2018-11-26 05:08] LABS: Basophils % 0.2 %; Eosinophils % 0.6 %; Hematocrit 24.5 % (37.5-50.1); Hemoglobin 7.6 g/dL (12.9-16.9); Immature Granulocytes % 2.4 % (0-4); Immature Platelets 11.6 % (1.1-6.1); Lymphocytes # 0.5 K/mcL (0.6-4.6); Lymphocytes % 8.8 %; Mean Corpuscular Hemoglobin 33.3 pg (28.0-33.3); Mean Corpuscular Volume 107.5 fL (83.0-100.0); Monocytes # 0.2 K/mcL (0.0-1.3); Monocytes % 3.3 %; Red Cell Distribution Width 24.7 % (11.5-14.5)
[2018-11-26 05:15] LABS: Neutrophils # 4.7 K/mcL (1.6-8.9); Platelet Count 42 K/mcL (140-400)
[2018-11-26 05:24] LABS: BUN/Creatinine Ratio 30 (6-26); Blood Urea Nitrogen 41 mg/dL (8-23); Calcium 7.8 mg/dL (8.6-10.3); Carbon Dioxide 24 mEq/L (23-29); Chloride 107 mEq/L (98-107); Glucose 110 mg/dL (70-105); Osmolality,Calculated 301 (280-300); Potassium 3.4 mEq/L (3.5-5.1); Sodium 140 mEq/L (136-145); eGFR For Non-African Americans 52 (> 60)
[2018-11-26 05:35] LABS: Anisocytosis 1+ (Not Present); Platelet Estimate Decreased (Normal)
[2018-11-26] MEDS: Furosemide 40 MG/4 ML VIAL IVP SCH (08:25)
[2018-11-26] MEDS: predniSONE 20 MG TABLET PO SCH (08:25)
[2018-11-26] MEDS: Nicotine 21 MG PATCH.TD24 TD SCH (08:25)
[2018-11-26] MEDS: Budesonide/Formoterol 160/4.5 1 PUFF INH IH SCH ×2 (11:18→22:21)
--- NOTE | 2018-11-26 14:43 | Internal Med Progress Note ---
Hospitalist Progress Note - Encounter Date of Encounter: 11/26/18 Time of Encounter: 09:00 - Subjective Interval History: Pt feels better, denies SOB, mild cough, keep oxygen requirement at 4L/Min with SpO2 92-94%. No fever. No active bleeding. - Exam Vitals: Temp Pulse Resp BP Pulse Ox 98.4 F 84 16 157/89 93 11/26/18 11:45 11/26/18 14:02 11/26/18 14:02 11/26/18 11:45 11/26/18 14:02 Exam: Pt is AAO x 3, in NAD HEENT: NC/AT, PERRL Neck: Supple, no JVD, no LAD Lungs: CTA b/l, no wheezes/rhonchi Heart: S1S2, RRR Abd: Soft, nontender, BS present Ext: ROM wnl, no pedal edema Neuro: No focal deficit - Assessment and Plan (1) Lupus Current Visit: Yes Status: Chronic Assessment and Plan: Continue outpatient follow-up. Predinisone 40mg po daily added per pulmo recommendation to finish a 5 day course. (2) MDS (myelodysplastic syndrome) Current Visit: Yes Status: Chronic Assessment and Plan: Oncology is on case. Patient has pancytopenia. Will closely monitor CBC, transfuse as needed. (3) Anemia Current Visit: Yes Status: Chronic Assessment and Plan: Due to MDS, will follow hematology recommendation. Transfusion as needed. (4) CAD (coronary artery disease) Current Visit: Yes Status: Chronic Assessment and Plan: Patient denies chest pain. Continue home medications, hold plavix b/o severe thrombocytopenia (5) PAD (peripheral artery disease) Current Visit: Yes Status: Chronic (6) HAP (hospital-acquired pneumonia) Current Visit: Yes Status: Acute Assessment and Plan: Patient has bilateral infiltrate, need high dose of oxygen. Pulmonology saw patient and had bronchoscope. V/Q scan done, low probability for PE - Continue closely monitor patient - Continue supportive treatment - Chest x-ray suspected pulmonary edema, one dose Lasix was given, BNP is high. Repeat echocardiogram shows LVEF 55-60%, no significan valve dysfunction, moderate PH. Cont lasix at this point as renal function tolerate. - Pulmonology consult appreciated, deescalate antibiotic to Augmentin po . (7) Acute kidney injury Current Visit: Yes Status: Acute Assessment and Plan: Continue closely monitor renal function. Slightly improved. (8) GERD (gastroesophageal reflux disease) Current Visit: Yes Status: Chronic Assessment and Plan: Continue home medications (9) COPD (chronic obstructive pulmonary disease) Current Visit: Yes Status: Chronic Assessment and Plan: No wheezing at this point. Continue home medications (10) Chronic low back pain Current Visit: Yes Status: Chronic Assessment and Plan: Continue home pain medication as needed (11) Acute respiratory failure with hypoxia Current Visit: Yes Status: Acute Assessment and Plan: Most likely due to pneumonia. But other etiology needs to be r/o. Continue treat pneumonia now. Continue supportive treatment. - Pulmonology consult saw patient. Recommendation appreciated - Decreased O2 requirement now. (12) Thrombocytopenia Current Visit: Yes Status: Chronic Assessment and Plan: As above. Transfuse if Plt < 10 or active bleeding. (13) Acute on chronic diastolic CHF (congestive heart failure) Current Visit: Yes Status: Acute Assessment and Plan: BNP 619. CXR show pulmonary edema/vascular congestion. Echo has been done, EF 55-60%. - Continue Lasix IV. - Strict I and O, fluid balance -2422 ml till today. DVT Prophylaxis: EPCDs - Time Spent with Patient Total time spent is greater than 50% in coordination of care (as documented) at patient's floor/unit and/or counseling patient: 30 minutes 25 - 35 minutes Plan of Care Discussed with: patient Internal Medicine: Result - Labs CBC & Chem 7: 11/26/18 04:38 11/26/18 04:38 Labs: Short CBC 11/26/18 Range/Units 04:38 WBC 5.5 (4.3-11.1) K/mcL Hgb 7.6 L (12.9-16.9) g/dL Hct 24.5 L (37.5-50.1) % Plt Count 42 L D (140-400) K/mcL Neutrophils # 4.7 (1.6-8.9) K/mcL BMP 11/26/18 04:38 Sodium 140 Potassium 3.4 L Chloride 107 Carbon Dioxide 24 BUN 41 H Creatinine 1.37 H Glucose 110 H Calcium 7.8 L - ABG Interpretation ABG results: ABG ABG pH 7.35 pH Units (7.32-7.45) 11/19/18 14:06 ABG pCO2 33 mmHg (35-45) L 11/19/18 14:06 ABG pO2 95 mmHg (85-104) 11/19/18 14:06 ABG O2 Saturation 97 % (95-98) 11/19/18 14:06 PT/INR, D-dimer PT 14.6 Seconds (9.4-12.1) H 11/20/18 05:46 - VTE Reasons for not Prescribing Prophylaxis: Refused by patient Consult Discharge Plan - Plan Referrals: Sarah Charles, [employer]ER [Primary Care Provider] - 12/03/18 11:00 am ([facility] LOCATION. 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 transplanted heart: [place] heart Associated angina: without angina Qualified Code(s): I25.10 - Atherosclerotic heart disease of [place] coronary artery without angina pectoris (8) GERD (gastroesophageal reflux disease) Qualifiers: Esophagitis presence: esophagitis presence not specified Qualified Code(s): K21.9 - Gastro-esophageal reflux disease without esophagitis (9) COPD (chronic obstructive pulmonary disease) Qualifiers: COPD type: unspecified COPD Qualified Code(s): J44.9 - Chronic obstructive pulmonary disease, unspecified (10) Chronic low back pain Qualifiers: Back pain laterality: midline Sciatica presence: without sciatica Qualified Code(s): M54.5 - Low back pain; G89.29 - Other chronic pain
--- NOTE | 2018-11-26 17:52 | Oncology Inp Progress Note ---
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 He is not a transplant candidate after second opinion at [facility]. Current treatment includes Decitabine initiated 04/14/18 which was decreased to 4 days out of 5 cycle #7 and Aranesp 500 mcg q 3 week initiated 04/27/18. He is s/p cycle #8 Decitabine on 10/27/2018. Plan: Cytopenias have stabilized, he has not required PRBC transfusion since admission Following resolution of his acute illness and rehabilitation will plan to resume treatment on outpatient basis Will plan to sign off at this time. He is planned to d/c to short term rehab center, will arrange for appointments with transfusional support during his rehabilitation and resume treatment once cleared (2) Pneumonia Current Visit: Yes Status: Acute Assessment and plan: CT chest revealed bilateral atypical pneumonia and small bilateral pleural effusions. V/Q scan was low probability for pulmonary embolism. S/P Bronchoscopy with cultures negative thus far He has been de-escalated to PO augmentin and planning to discharge to short term rehab facility Qualifiers: Pneumonia type: due to unspecified organism Laterality: bilateral Lung location: unspecified part of lung Qualified Code(s): J18.9 - Pneumonia, unspecified organism Oncology: Subj Interval history: NO acute events noted overnight. Resting comfortably. Continues on 4.5L O2 per NC. Appetite stable. He is ambulating in room and down powers with assistance. Planning for potential d/c tomorrow to short term rehab facility. - Constitutional General appearance: cooperative, no acute distress, no febrile - Head Head exam: Present: atraumatic - ENT ENT exam: Present: mucous membranes moist, normal oropharynx - Respiratory Respiratory exam: Present: decreased breath sounds. Absent: respiratory distress - Cardiovascular Cardiovascular exam: Present: RRR, +S1, +S2 - GI/Abdominal GI/Abdominal exam: Present: normal bowel sounds, soft. Absent: tenderness - Extremities Exam Extremities exam: Present: pedal edema. Absent: calf tenderness Additional comments: 1+BLE pitting edema - Neurological Exam Neurological exam: Present: alert, oriented X3, no focal deficits, strengths equal and symetr throughout - Psychiatric Psychiatric exam: Present: normal affect, normal mood - Skin Skin exam: Present: dry, intact, normal color, warm Oncology: Obj Data - Labs CBC & Chem 7: 11/26/18 04:38 11/26/18 04:38 Consult Discharge Plan - Plan Referrals: Sarah Charles, METER CALIBRATOR [Primary Care Provider] - 12/03/18 11:00 am ([facility] LOCATION. SHOW UP 15 MINS EARLY PER THE OFFICE.) Inpatient Charges Provider: Dr. Cookie Eaton <Vinod Eaton - Last Filed: 11/26/18 22:19> Date of Encounter: 11/26/18 (1) Pneumonia Current Visit: Yes Status: Acute Qualifiers: Pneumonia type: due to unspecified organism Laterality: bilateral Lung location: unspecified part of lung Qualified Code(s): J18.9 - Pneumonia, unspecified organism (2) Thrombocytopenia Current Visit: Yes Status: Chronic (3) MDS (myelodysplastic syndrome) Current Visit: Yes Status: Chronic (4) Pain Current Visit: Yes Status: Acute Oncology: Obj Data - Labs CBC & Chem 7: 11/26/18 04:38 11/26/18 04:38 Inpatient Charges Provider: Dr. Cookie Eaton Follow up - Inpatient: [id number] - Attending Attestation I examined this patient and my medical decision-making was reviewed with the Advanced Practice Nurse. I agree with the documented findings, disposition and treatment plan as described except to the extent set forth below. He continues to improve. His oxygenation improves with decreasing option requirements. He is now ambulatory. Blood counts have also improved with improvement in platelet count today. Hemoglobin is stable. Exam revealsbreath sounds bilaterally with intermittent rales. 1+ lower extremity edema stable. Tentative plan for disc harge tomorrow to alf facility. I will arrange for follow-up with me next week with a CBC. We will otherwise sign off.
[2018-11-27] MEDS: *HR* OxyCODONE/APAP 5/325 TABLET PO PRN ×5 (00:06→14:22)
[2018-11-27 04:18] LABS: Basophils % 0.2 %; Mean Corpuscular Volume 102.8 fL (83.0-100.0); Red Cell Distribution Width 24.4 % (11.5-14.5)
[2018-11-27 04:20] LABS: Eosinophils % 0.4 %; Hematocrit 22.2 % (37.5-50.1); Immature Granulocytes % 3.7 % (0-4); Immature Platelets 12.3 % (1.1-6.1); Lymphocytes # 0.7 K/mcL (0.6-4.6); Lymphocytes % 12.5 %; Mean Corpuscular HGB Conc 31.5 g/dL (31.6-35.5); Mean Corpuscular Hemoglobin 32.4 pg (28.0-33.3); Monocytes # 0.2 K/mcL (0.0-1.3); Monocytes % 2.8 %; Neutrophils # 4.5 K/mcL (1.6-8.9); Red Blood Count 2.16 M/mcL (4.19-5.50); Segmented Neutrophils % 80.4 %
[2018-11-27 04:22] LABS: Platelet Count 53 K/mcL (140-400)
[2018-11-27] MEDS: Ipratropium/Albuterol Neb 3 ML IH SCH ×2 (04:26→09:42)
[2018-11-27 04:38] LABS: BUN/Creatinine Ratio 32 (6-26); Blood Urea Nitrogen 43 mg/dL (8-23); Calcium 7.8 mg/dL (8.6-10.3); Carbon Dioxide 24 mEq/L (23-29); Chloride 109 mEq/L (98-107); Glucose 96 mg/dL (70-105); Osmolality,Calculated 303 (280-300); Potassium 3.7 mEq/L (3.5-5.1); Sodium 141 mEq/L (136-145); eGFR For Non-African Americans 53 (> 60)
[2018-11-27] MEDS: Nicotine 21 MG PATCH.TD24 TD SCH (07:59)
[2018-11-27] MEDS: Furosemide 40 MG/4 ML VIAL IVP SCH (08:00)
[2018-11-27] MEDS: predniSONE 20 MG TABLET PO SCH (08:01)
[2018-11-27] MEDS: Budesonide/Formoterol 160/4.5 1 PUFF INH IH SCH (09:41)
--- NOTE | 2018-11-27 10:53 | Discharge Summary ---
- NOTES TO OUTPATIENT PROVIDER Notes to Outpatient Provider: 1. B/o thrombocytopenia, will hold by mouth Plavix, continue only by mouth baby aspirin. Per patient, he has stent but last stent was 5 years ago. Platelet level 53K today. Consider also hold ASA if thrombocytopenia getting worse. 2. Continue Augmentin for 7 more days for pneumonia. Newly added by mouth Lasix 40 mg daily for diastolic CHF. Orders not resulted at time of discharge: Pending orders 11/19/18 13:10 Platelets [BBK] Stat Poly CLARIBEL With Reflex to IgG [BBK] Stat Red Blood Cells [BBK] Stat Type and Screen [BBK] Stat 11/19/18 14:51 Culture,Sputum with Gram Stain [RM] Routine 11/20/18 13:25 AFB Culture, Respiratory [TB] Routine AFB Smear [TB] Routine Fungal Culture [MYC] Routine Herpes Simplex PCR Body Fl Routine Legionella Culture [RM] Routine Resp.Virus Panel,Body Fl Routine 11/20/18 13:37 Herpes Simplex PCR Body Fl Stat Legionella Culture [RM] Routine Resp.Virus Panel,Body Fl Routine 11/20/18 13:38 AFB Culture, Respiratory [TB] Routine AFB Smear [TB] Routine Fungal Culture [MYC] Routine Date of Encounter: 11/27/18 Time of Encounter: 09:00 - Discharge Diagnosis (1) Lupus Priority: Secondary Status: Chronic Qualifiers: Systemic lupus erythematosus type: unspecified Systemic lupus erythematosus organ involvement: unspecified Qualified Code(s): M32.9 - Systemic lupus erythematosus, unspecified (2) MDS (myelodysplastic syndrome) Priority: Secondary Status: Chronic (3) Anemia Priority: Secondary Status: Chronic Qualifiers: 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 transplanted heart: [place] heart Associated angina: without angina Qualified Code(s): I25.10 - Atherosclerotic heart disease of [place] coronary artery without angina pectoris (5) PAD (peripheral artery disease) Priority: Secondary Status: Chronic (6) HAP (hospital-acquired pneumonia) Priority: Primary Status: Acute (7) Acute kidney injury Priority: Secondary Status: Acute (8) GERD (gastroesophageal reflux disease) Priority: Secondary Status: Chronic Qualifiers: Esophagitis presence: esophagitis presence not specified Qualified Code(s): K21.9 - Gastro-esophageal reflux disease without esophagitis (9) COPD (chronic obstructive pulmonary disease) Priority: Secondary Status: Chronic Qualifiers: COPD type: unspecified COPD Qualified Code(s): J44.9 - Chronic obstructive pulmonary disease, unspecified (10) Chronic low back pain Priority: Secondary Status: Chronic Qualifiers: Back pain laterality: midline Sciatica presence: without sciatica Qualified Code(s): M54.5 - Low back pain; G89.29 - Other chronic pain (11) Acute respiratory failure with hypoxia Priority: Primary Status: Acute (12) Thrombocytopenia Priority: Secondary Status: Chronic (13) Acute on chronic diastolic CHF (congestive heart failure) Priority: Primary Status: Acute Hospital course: Mr. Oreilly is a 68 year old male admitted for shortness of breath and increased oxygen requirement. Patient was found pneumonia and treated as hospital- acquired pneumonia. After treatment, patient's condition is getting better. Patient has history of MDS. Oncology consult was called and saw patient. Pulmonology consult was also saw patient for respiratory failure with hypoxia. Patient was found elevated BNP and chest x-ray shows pulmonary vascular congestion, echo has been done, which shows LVEF 55-60%. Consider diastolic CHF. Lasix was given, fluid balance -3 L so far. After treatment, patient's oxygen requirement get down to 4 L/m nasal cannula. All his medication switched to by mouth. Will discharge patient to rehabilitation center for further management and treatment. Expect his condition will getting better as it is progressing well. I have seen and examined the patient today. Denies cough. Denies shortness of breath. No fever. Vitals generally stable. Stable to discharge to rehabilitation center for further management. Discharge discussed with: patient Time spent discussing smoking cessation with patient: 3 to 10 minutes - Time Spent with Patient Total time spent providing and/or coordinating discharge services: 45 minutes Greater than 30 minutes - Discharge Medications Prescriptions: Amoxicillin/Clavulanate [Augmentin] 875 mg PO BIDWM 7 Days #14 tablet Aspirin Enteric Coated [Aspirin EC] 81 mg PO DAILY 30 Days #30 tablet. Furosemide [Lasix] 40 mg PO DAILY 30 Days #30 tablet Nicotine Patch [Nicoderm] 21 mg TD DAILY 14 Days #14 patch.td24 Home Medications: Budesonide/Formoterol 160/4.5 [Symbicort 160/4.5] 1 puff IH BID 10/16/16 [History] Potassium Chloride [Klor-Con] 20 meq PO DAILY 10/16/16 [History] Esomeprazole Magnesium [Nexium] 40 mg PO DAILY 01/31/17 [History] Nitroglycerin 0.4 mg SL Q5M PRN 12/29/17 [History] Oxycodone HCl/Acetaminophen [Percocet 10-325 mg Tablet] 1 each PO Q6H PRN 07/28/18 [History] Lidocaine/Prilocaine [Emla] 1 appl TP DAILY #30 gm 08/28/18 [Rx] Atorvastatin Calcium 80 mg PO BID 11/19/18 [History] Diclofenac Sodium 4 gm TP QID PRN 11/19/18 [History] Hydromorphone (Pf) [Hydromorphone Intrathecal Pump] 9 mg IT AD 11/19/18 [History] Ipratropium/Albuterol Sulfate [Combivent Respimat 20-100 Mcg] 2 spray IH DAILY 11/19/18 [History] NALOXONE 4 MG Nasal [place] [Narcan] 1 spray NS AD 11/19/18 [History] Amoxicillin/Clavulanate [Augmentin] 875 mg PO BIDWM 7 Days #14 tablet 11/27/18 [Rx] Aspirin Enteric Coated [Aspirin EC] 81 mg PO DAILY 30 Days #30 tablet. 11/27/18 [Rx] Furosemide [Lasix] 40 mg PO DAILY 30 Days #30 tablet 11/27/18 [Rx] Nicotine Patch [Nicoderm] 21 mg TD DAILY 14 Days #14 patch.td24 11/27/18 [Rx] Allergies/Adverse Reactions: Allergy/AdvReac Type Severity Reaction Status Date / Time Iodinated Contrast- Oral and AdvReac Difficulty Verified 11/19/18 14:03 IV Dye Breathing [Iodinated Contrast Media - Oral and] lorazepam [From Ativan] AdvReac See Verified 11/19/18 14:03 Comments Date of admission: 11/20/18 09:41 Primary care physician: Sarah Charles CNP Consults: 11/19/18 16:41 Consult to Interventional Radiology [CONS] Routine Consulting Provider: Radiology Interventional [place]s Reason for Consult: port a cath dehiscence, remove and place a new Port-A-Cath Time Notified: 16:43 Call Completed: Yes 11/19/18 16:43 Consult to Oncology Hematology [CONS] Routine Consulting Provider: Darío Velázquez Reason for Consult: MDS, received blood transfusion Time Notified: 16:44 Call Completed: Yes 11/19/18 18:16 Consult to Nutrition [CONS] Routine Comment: Consulting Provider: NUTRITION Reason for Dietary Consult: MST Score 11/20/18 10:50 Consult to Palliative Care [CONS] Routine Comment: Consulting Provider: Palliative Care [place] Reason for Consult: End of life planning Call Completed: Yes 11/20/18 15:59 Consult to Occupational Therapy [CONS] Routine Comment: Evaluate, develop and implement POC Reason for Consult: Eval and treat Does patient have active BEDREST order?: No Is patient medically & hemodynamically stable?: Yes Consult to Physical Therapy [CONS] Routine Comment: Evaluate, develop and implement POC Reason for Consult: Eval and Treat Does patient have active BEDREST order?: No Is patient medically & hemodynamically stable?: Yes 11/21/18 11:41 Consult to Hospitalist [CONS] Stat Consulting Provider: Hospitalist [place] Reason for Consult: Medical managment of hypoxic respiratory failure Time Notified: 08:00 Call Completed: Yes 11/23/18 12:26 Consult to Pulmonology [CONS] Routine Consulting Provider: [facility]m [facility] [place] Reason for Consult: Need high flow oxygen, PNA? Call Completed: Yes Discharging clinician: Christin Perdue Anticipated date of discharge: 11/27/18 - Constitutional Vitals: Temp Pulse Resp BP Pulse Ox 98.8 F 94 16 157/83 99 11/27/18 06:50 11/27/18 06:50 11/27/18 09:43 11/27/18 06:50 11/27/18 09:43 General appearance: Present: A&O X 3, no acute distress, answers questions appropriately Exam: Pt is AAO x 3, in NAD HEENT: NC/AT, PERRL Neck: Supple, no JVD, no LAD Lungs: CTA b/l, no wheezes/rhonchi Heart: S1S2, RRR Abd: Soft, nontender, BS present Ext: ROM wnl, no pedal edema Neuro: No focal deficit - Patient Status Disposition: Transfer Inpatient Rehab Fac Condition: Fair Functional capacity at discharge: uses cane/walker Overall status at discharge: patient is progressing back to baseline - Discharge Instructions Follow Up With: Sarah Charles CNP [Primary Care Provider] - 12/03/18 11:00 am ([facility] LOCATION. SHOW UP 15 MINS EARLY PER THE OFFICE.) - Diet and Activity Activity: as per physical therapy, wear oxygen at all times Diet: regular diet - VTE Reasons for not Prescribing Prophylaxis: Refused by patient
--- NOTE | 2018-11-27 11:24 | Physician Discharge Referral ---
ExtendedCare Referral Info Transfer To: [facility] Provider in Charge after Transfer: Other - Diagnosis (1) Lupus Status: Chronic (2) MDS (myelodysplastic syndrome) Status: Chronic (3) Anemia Status: Chronic (4) CAD (coronary artery disease) Status: Chronic (5) PAD (peripheral artery disease) Status: Chronic (6) HAP (hospital-acquired pneumonia) Status: Acute (7) Acute kidney injury Status: Acute (8) GERD (gastroesophageal reflux disease) Status: Chronic (9) COPD (chronic obstructive pulmonary disease) Status: Chronic (10) Chronic low back pain Status: Chronic (11) Acute respiratory failure with hypoxia Status: Acute (12) Thrombocytopenia Status: Chronic (13) Acute on chronic diastolic CHF (congestive heart failure) Status: Acute - Transfer Medications Prescriptions: Amoxicillin/Clavulanate [Augmentin] 875 mg PO BIDWM 7 Days #14 tablet Aspirin Enteric Coated [Aspirin EC] 81 mg PO DAILY 30 Days #30 tablet.dr Furosemide [Lasix] 40 mg PO DAILY 30 Days #30 tablet Nicotine Patch [Nicoderm] 21 mg TD DAILY 14 Days #14 patch.td24 Home Medications: Budesonide/Formoterol 160/4.5 [Symbicort 160/4.5] 1 puff IH BID 10/16/16 [History] Potassium Chloride [Klor-Con] 20 meq PO DAILY 10/16/16 [History] Esomeprazole Magnesium [Nexium] 40 mg PO DAILY 01/31/17 [History] Nitroglycerin 0.4 mg SL Q5M PRN 12/29/17 [History] Oxycodone HCl/Acetaminophen [Percocet 10-325 mg Tablet] 1 each PO Q6H PRN 07/28/18 [History] Lidocaine/Prilocaine [Emla] 1 appl TP DAILY #30 gm 08/28/18 [Rx] Atorvastatin Calcium 80 mg PO BID 11/19/18 [History] Diclofenac Sodium 4 gm TP QID PRN 11/19/18 [History] Hydromorphone (Pf) [Hydromorphone Intrathecal Pump] 9 mg IT AD 11/19/18 [History] Ipratropium/Albuterol Sulfate [Combivent Respimat 20-100 Mcg] 2 spray IH DAILY 11/19/18 [History] NALOXONE 4 MG Nasal [place] [Narcan] 1 spray NS AD 11/19/18 [History] Amoxicillin/Clavulanate [Augmentin] 875 mg PO BIDWM 7 Days #14 tablet 11/27/18 [Rx] Aspirin Enteric Coated [Aspirin EC] 81 mg PO DAILY 30 Days #30 tablet. 11/27/18 [Rx] Furosemide [Lasix] 40 mg PO DAILY 30 Days #30 tablet 11/27/18 [Rx] Nicotine Patch [Nicoderm] 21 mg TD DAILY 14 Days #14 patch.td24 11/27/18 [Rx] Allergies/Adverse Reactions: Allergy/AdvReac Type Severity Reaction Status Date / Time Iodinated Contrast- Oral and AdvReac Difficulty Verified 11/19/18 14:03 IV Dye Breathing [Iodinated Contrast Media - Oral and] lorazepam [From Ativan] AdvReac See Verified 11/19/18 14:03 Comments - Respiratory Orders Oxygen / L per min (4) Smoking Cessation: Smoking cessation has been advised. For more information, call the [place] Quit Line at [phone]-NOW. - Advance Directives Code Status: DNR-Arrest/Don't Intubate - Rehabiliation Orders Rehab Orders: Evaluation for Physical Therapy, Evaluation for Occupational Therapy - Diet Orders Regular CERTIFICATION: I certify that the transfer of the above named patient to an Extended Care Facility is necessary for the continuing treatment of the diagnosis listed. The above information is true and accurate reflection of patient's current condition. Confidential - Redisclosure prohibited without a patient's written consent.
[2018-11-27 11:46] VITALS: BP 142/81
[2018-11-28 03:03] LABS: HSV Source BAL RML
[2018-12-01 04:45] LABS: HSV Source BAL RLL
== END 2018-11-27 14:36 | DRG 981 ==
LOC: EMEROOARM 10:17 → 2ANU 10:17 → ICNU 14:26 → SUATTDRO 11-20 09:41 → 2NNU 11-21 02:28
PROVIDERS: ADMIT Internal Medicine; ATTEND Hospitalist